=== PATIENT | female | born 1955 | race Caucasian/White ===

== ENCOUNTER → 2016-08-04 | Outpatient (CLI) | payer BC ==
[~2016-08-04] MED LIST: ASCO1CHW17 PO; CALC1TAB9 PO; IBUP-1050 PO; MULT-506 PO; NAPR1TAB9 PO
== END | disposition home or self-care (01) ==
LOC: C.LABSPEC 17:38
PROVIDERS: ATTEND Physician Assistant
DX: L29.8 Other pruritus (principal)

== ENCOUNTER → 2016-09-29 | Day surgery (SDC) | payer BC ==
[2016-09-22 11:39] VITALS: Ht 157.5 cm; Wt 105.0 kg
[~2016-09-29] VITALS: Ht 157.5 cm; Wt 105.0 kg
[~2016-09-29] MED LIST changes: -IBUP-1050 PO; +LIDOCAINE HCL 2% 2 ML VIAL (20MG/ML) ONE; +PROPOFOL IV EMULSION 10 MG/ML 20 ML VIAL IV ONE; +SODIUM CHLORIDE 0.9% 500ML 500 ML IV ONE
[2016-09-29 13:45] VITALS: TEMP 37.1
--- NOTE | 2016-09-29 14:31 | Endo History and Physical ---
History & Physical Date of Service: September 29, 2016. Chief Complaint: screening Referring Physician: Dr. Rishi Gonsalves History of Present Illness 61 yo CF who presents for screening colonoscopy. Past Medical History Arthritis Past Surgical History Hx Cardiac Surgery: No Hx Internal Defibrillator: No Hx Pacemaker: No Hx Abdominal Surgery: Yes (HERNIA REPAIR, JUANCHO, GASTRIC BYPASS, SANDRO BSO) Hx of Implantable Prosthesis: No Hx Post-Op Nausea and Vomiting: No Hx Cancer Surgery: No Hx Thoracic Surgery: No Hx Orthopedic: Yes (LT/RT KNEE SURGERY) Hx Urinary Tract Surgery: No Family History None Social History Smoking Status: Never Smoker Hx Substance Use: No Hx Alcohol Use: No Allergies Coded Allergies: No Known Allergies (Verified , 09/22/16) Current Medications Reported Home Medications Medications Dose Route/Sig Max Daily Dose Days Date Category Dose Instructions Vitamin C Adult Gummies 125 mg (Ascorbic Acid) 1 Chw Chw 1 Tab PO QAM 09/22/16 Reported Citracal + D3 Maximum (Calcium Citrate-Vitamin D) 1 Tab Tab 2 Tab PO QAM 07/25/15 Reported Aleve (Naproxen) 220 Mg Tab 440 Mg PO BID 07/06/11 Reported ALWAYS TAKES AM DOSE Multivitamin (Multivitamins) Tab 1 Tab PO QAM 12/28/10 Reported Vital Signs Weight (Kilograms): 105 Height (Feet): 5 Height (Inches): 2 Date Time Temp Pulse Resp B/P Pulse Ox O2 Delivery O2 Flow Rate FiO2 09/29/16 13:45 37.1 105 20 134/70 93 Room Air Physical Exam General Appearance: WD/WN, no apparent distress Respiratory/Chest: Auscultation: breath sounds normal Cardiovascular: Heart Auscultation: RRR Abdomen: Bowel Sounds: normal Inspection & Palpation: soft, non-distended, no tenderness, guarding & rebound Assessment and Plan Assessment: 61 yo CF who presents for screening colonoscopy. Plan: Proceed with colonoscopy.
--- NOTE | 2016-09-29 15:11 | Anesthesiology Progress Note ---
Anesthesia Post Op Note Date & Time September 29, 2016 at 15:10 Vital Signs Pain Intensity: 0 Vital Signs Past 12 Hours Date Time Temp Pulse Resp B/P Pulse Ox O2 Delivery O2 Flow Rate FiO2 09/29/16 14:55 78 16 95/75 94 Room Air 09/29/16 13:45 37.1 105 20 134/70 93 Room Air Notes Mental Status: alert / awake / arousable, participated in evaluation Pt Amnestic to Procedure: Yes Nausea / Vomiting: adequately controlled Pain: adequately controlled Airway Patency, RR, SpO2: stable & adequate BP & HR: stable & adequate Hydration State: stable & adequate Anesthetic Complications: no major complications apparent
--- NOTE | 2016-09-29 15:18 | GI REPORT ---
Procedure Date: 09/29/2016 2:20 PM Procedure: Colonoscopy Indications: Screening for colorectal malignant neoplasm Medicines: Monitored Anesthesia Care Complications: No immediate complications. Estimated Blood Loss: Estimated blood loss: none. Procedure: Pre-Anesthesia Assessment: - Prior to the procedure, a History and Physical was performed, and patient medications and allergies were reviewed. The patient's tolerance of previous anesthesia was also reviewed. The risks and benefits of the procedure and the sedation options and risks were discussed with the patient. All questions were answered, and informed consent was obtained. Prior Anticoagulants: The patient has taken no previous anticoagulant or antiplatelet agents. ASA Grade Assessment: III - A patient with severe systemic disease. After reviewing the risks and benefits, the patient was deemed in satisfactory condition to undergo the procedure. After I obtained informed consent, the scope was passed under direct vision. Throughout the procedure, the patient's blood pressure, pulse, and oxygen saturations were monitored continuously. The Scope was introduced through the anus and advanced to the terminal ileum. The colonoscopy was performed without difficulty. The patient tolerated the procedure well. The quality of the bowel preparation was good. The terminal ileum, ileocecal valve, appendiceal orifice, and rectum were photographed. Findings: Non-bleeding internal hemorrhoids were found during retroflexion. The hemorrhoids were small. The exam was otherwise without abnormality. Impression: - Non-bleeding internal hemorrhoids. - The examination was otherwise normal. - No specimens collected. Recommendation: - Resume previous diet. - Continue present medications. - Repeat colonoscopy in 10 years for surveillance. - Return to primary care physician as previously scheduled. Aj Sparks DO 09/29/2016 3:18:12 PM This report has been signed electronically. Note Initiated On: 09/29/2016 2:20 PM I attest to the content of the Intraoperative Record and orders documented therein, exceptions below
--- NOTE | 2016-09-29 15:22 | Discharge Instructions ---
Endoscopy Patient Instructions Date / Procedure(s) Performed September 29, 2016. Colonoscopy Allergy Information Coded Allergies: No Known Allergies (Verified , 09/22/16) Discharge Date / Findings September 29, 2016. Internal hemorrhoids Medication Instructions OK to resume all medications today as prescribed Reported Home Medications Medications Dose Route/Sig Max Daily Dose Days Date Category Dose Instructions Vitamin C Adult Gummies 125 mg (Ascorbic Acid) 1 Chw Chw 1 Tab PO QAM 09/22/16 Reported Citracal + D3 Maximum (Calcium Citrate-Vitamin D) 1 Tab Tab 2 Tab PO QAM 07/25/15 Reported Aleve (Naproxen) 220 Mg Tab 440 Mg PO BID 07/06/11 Reported ALWAYS TAKES AM DOSE Multivitamin (Multivitamins) Tab 1 Tab PO QAM 12/28/10 Reported Provider Instructions Activity Restrictions - No exercising or heavy lifting for 24 hours. - Do not drink alcohol the day of the procedure. - Do not drive a car or operate machinery until the day after the procedure. - Do not make any important decisions or sign important papers in 24 hours after the procedure. Following Day: - Return to full activity which may include returning to work/school. Diet Start your diet with liquids and light foods (jello, soup, juice, toast). Then eat your usual diet if not nauseated. Treatment For Common After Affects For mild abdominal pain, bloating, or excessive gas: - Rest - Eat lightly - Lie on right side Follow-Up Information Follow-up with Dr. Rishi Gonsalves as scheduled Anesthesia Information What You Should Know You have had a procedure that required some medicine to reduce anxiety and discomfort. This treatment is called moderate sedation. After receiving the treatment, you may be sleepy, but you will be able to breathe on your own. The effects of the treatment may last for several hours. Follow these instructions along with Activity/Diet recommendations noted above: * Do NOT do anything where dizziness or clumsiness would be dangerous. * Rest quietly at home today, then you can be up and about tomorrow. * Have a responsible person stay with you the rest of today. * You may have had an I.V. today. If so, you may take the dressing off later today. Recommendations Call your doctor if: * Trouble breathing * Continuous vomiting for more than 24 hours * Temperature above 101 degrees * Severe abdominal pain or bloating * Pain not relieved by pain medicine ordered * There is increased drainage or redness from any incision * A large amount of rectal bleeding greater than 2-3 tablespoons. (If you had a polyp/s removed or have hemorrhoids, a small amount of blood - from the rectum is to be expected.) * You have any unanswered questions or concerns. IN THE EVENT OF A SERIOUS EMERGENCY, GO TO THE NEAREST EMERGENCY ROOM Your discharge instructions were prepared by provider Aj Sparks. Patient Instructions Signature Page Marilee Mckeon Patient (or Guardian) Signature/Date: I have read and understand the instructions given to me by my caregivers. Caregiver/RN/Doctor Signature/Date: The above-named patient and/or guardian has received patient instructions on this date. + Original Patient Signature Page (only) stays with chart. Please make copy for patient.
[2016-09-29 15:25] VITALS: BP 116/81; PULSE 75; O2SAT 97
== END | disposition home or self-care (01) ==
LOC: C.GI 13:03
PROVIDERS: ATTEND Internal Medicine
DX: Z12.11 Encounter for screening for malignant neoplasm of colon (principal); K64.8 Other hemorrhoids; M19.90 Unspecified osteoarthritis, unspecified site; Z98.890 Other specified postprocedural states; Z98.84 Bariatric surgery status; E66.01 Morbid (severe) obesity due to excess calories; Z68.41 Body mass index [BMI] 40.0-44.9, adult

== ENCOUNTER → 2017-04-11 | Outpatient (CLI) | payer BC ==
[~2017-04-11] MED LIST changes: -LIDOCAINE HCL 2% 2 ML VIAL (20MG/ML) ONE; -PROPOFOL IV EMULSION 10 MG/ML 20 ML VIAL IV ONE; -SODIUM CHLORIDE 0.9% 500ML 500 ML IV ONE
== END | disposition home or self-care (01) ==
LOC: C.LABBFT 13:56
PROVIDERS: ATTEND Internal Medicine
DX: Z00.00 Encounter for general adult medical examination without abnormal findings (principal); Z11.59 Encounter for screening for other viral diseases

== ENCOUNTER → 2017-06-29 | Outpatient (CLI) | payer OTHER ==
--- NOTE | 2017-06-29 15:23 | MAMMOGRAPHY REPORT ---
BILATERAL DIGITAL SCREENING MAMMOGRAM TOMOSYNTHESIS WITH CAD: 06/29/2017 CLINICAL HISTORY: Routine screening. Patient has no complaints. TECHNIQUE: Breast tomosynthesis in addition to standard 2D mammography was performed. Current study was also evaluated with a Computer Aided Detection (CAD) system. COMPARISON: Comparison is made to exams dated: 04/20/2016 mammogram, 04/15/2015 mammogram, 04/03/2014 mammogram, 09/28/2012 mammogram, 09/08/2011 mammogram, and 08/07/2010 mammogram - [facility]. BREAST COMPOSITION: The tissue of both breasts is almost entirely fatty. FINDINGS: No suspicious masses, calcifications, or areas of architectural distortion are noted in ei ther breast. There has been no significant interval change compared to prior exams. IMPRESSION: ACR BI-RADS CATEGORY 1: NEGATIVE There is no mammographic evidence of malignancy. A 1 year screening mammogram is recommended. The pa tient will receive written notification of the results. Approximately 10% of breast cancers are not detected with mammography. A negative mammographic report should not delay biopsy if a clinically suggestive mass is present. Dariana Ansari M.D. /:06/29/2017 11:35:01 Block Hand: Ariana MEADE)([place]), [facility] letter sent: Normal 1/2 BI-RADS Code: ACR BI-RADS Category 1: Negative
== END | disposition home or self-care (01) ==
LOC: C.MAMM 11:07
PROVIDERS: ATTEND Internal Medicine
DX: Z12.31 Encounter for screening mammogram for malignant neoplasm of breast (principal)

== ENCOUNTER 2019-05-10 06:13 | Inpatient (IN) ==
--- NOTE | 2019-04-06 14:43 | PAT Medication Instructions ---
Medication Instructions Date of Service April 06, 2019 Home Medications multivitamin 1 cap PO QAM ascorbic acid (vitamin C) 125 mg PO DAILY [Citracal + D Maximum] 2 tab PO QAM acetaminophen [Tylenol Extra Strength] 1,000 mg PO UD PRN celecoxib [Celebrex] 200 mg PO DAILY ASK your surgeon for instructions celecoxib [Celebrex] 200 mg PO DAILY DO NOT take the morning of surgery multivitamin 1 cap PO QAM ascorbic acid (vitamin C) 125 mg PO DAILY [Citracal + D Maximum] 2 tab PO QAM acetaminophen [Tylenol Extra Strength] 1,000 mg PO UD PRN Other Notes If you have any questions please call us at [phone] or [phone] or [phone] or [phone]
--- NOTE | 2019-04-09 11:19 | Anesthesiology Consultation ---
Date of Service April 09, 2019 Assessment & Plan (1) Encounter for pre-operative examination: POSSIBLE DIFFICULT AIRWAY, H/O GLIDESCOPE #3 ON 2015 HERNIA REPAIR. S/P 01/2018 TKA, SAB X 1 ATTEMPT, NO ISSUES NOTED. Chart Review Chart Review: Acceptable Risk for Surgery and Patient seen in Pre Admission Testing Teaching & Discussion Instructed NPO after midnight before surgery, except medications with 15 cc of water. Medication instructions provided according to the PAT guidelines. History Surgery Operation Date: 05/10/19 13:00 Proposed Procedures p Right Total Knee Arthroplasty - Jam Garcia MD Height/Weight Height: 5 ft 1 in Weight: 114.7 kg Allergies Allergy/AdvReac Type Severity Reaction Status Date / Time No Known Drug Allergies Allergy Verified 04/02/19 11:56 Medications Home Medications Medication Instructions Recorded Confirmed Last Taken multivitamin 1 cap PO QAM #0 12/28/10 04/09/19 01/13/18 10:00 ascorbic acid (vitamin C) 125 mg PO DAILY #0 09/22/16 04/09/19 01/13/18 10:00 calcium citrate-vitamin D3 2 tab PO QAM 01/02/18 04/09/19 01/13/18 10:00 [Citracal + D Maximum] acetaminophen [Tylenol Extra 1,000 mg PO UD PRN 04/02/19 04/09/19 Unknown Strength] celecoxib [Celebrex] 200 mg PO DAILY 04/02/19 04/09/19 Unknown Past Medical History Medical History History of hypothyroidism History of positive PPD 2002. Was treated with meds x 9 months Morbid obesity Osteoarthritis Pulmonary nodules Per chest CT 04/19 Exercise / Class Metabolic Activity II 4-5 Yardwork/Stairs/Walk up hill (Denies CP or SOB with 1 FOS, moves slowly 2/2 knee pain) Past Family History Family History Mother Family history of cancer Other Patient's mother is Past Surgical History Surgical History Family history of reaction to anesthesia Mother- "slow to wake", PONV History of arthroscopy Bilateral knee History of bilateral tubal ligation History of cholecystectomy History of colonoscopy History of gastric bypass History of herniorrhaphy umbilical History of hysterectomy BSO History of tooth extraction History of total left knee replacement Past Anesthesia History No Hx of Anesthesia Complications, Difficult Airway (Glidescope #3 on 2016 hernia repair) and No Family Hx of Anesthesia Complications (other than mother "slow to wake") History of PONV No Hx of PONV and No Hx of Motion Sickness Social History Smoking Status: Never smoker Do You Dip or Chew Tobacco: No Hx Alcohol Use: No Hx Substance Use: No substance use type: does not use Review of Systems Pt denies any recent chest pain, shortness of breath, palpitations, cough, fever or URI. Physical Exam Vital Signs BP: 120/86 P: 95bpm SPO2: 93% RA T: 97.9 F R: 18 Constitutional + morbidly obese ENMT Mouth: + dental restorations (crown upper L molar); no chipped teeth and no loose teeth Thyromental Distance: > or= 3.5 Finger Breadths (3.5) Mallampati Class: I Neck + short neck; neck extension not limited Respiratory normal respiratory effort Auscultation: lungs clear to auscultation bilaterally Cardiovascular Rate/Rhythm: regular rate and regular rhythm Heart Sounds: no murmur Vessels: no carotid bruit Testing Laboratory Results Blood Type O Positive 04/09/19 10:59 Antibody Screen NEGATIVE 04/09/19 10:59 04/09/19 WBC: 10.3 H/H: 13.8/41.9 PLATELETS: 265 SODIUM: 139 POTASSIUM: 4.3 CHLORIDE: 101 CO2: 25 BUN: 20 CREATININE: 0.75 GLUCOSE: 104 PT: 9.9 PTT: 27.3 INR: 0.9 Electrocardiogram Date: 04/09/19 Findings: + NSR @ (87bpm) LAFB. No significant change from EKG 12/15/17 Chest X-Ray Date: 04/09/19 COMPARISON STUDY: Chest radiograph December 15, 2017. FINDINGS: Lung volumes are normal. There is no pneumothorax or pleural effusion. There is no consolidation to suggest pneumonia. A 2.1 cm round density projects over the right hilum. There is no evidence for pulmonary edema. A moderate sized hiatal hernia is present. IMPRESSION: 1. 2.1 cm round density which projects over the right hilum. This is probably artifactual however a pulmonary nodule or enlarged right hilar lymph node cannot be excluded. A follow-up CT of the chest with contrast is recommended. 2. No acute cardiopulmonary findings. 3. Hiatal hernia. Other Testing Chest CT with Contrast 04/19/19 IMPRESSION: 1. No acute intrathoracic abnormality. 2. No mass, adenopathy or suspicious nodule of the right hilum to correlate with findings on recent chest radiographs. The reported opacity was likely secondary to normal pulmonary vasculature. 3. There are however a few likely benign solid pulmonary nodules noted throughout the right lung measuring up to 5 mm. Follow-up guidelines provided below. 4. Additional findings as above.
--- NOTE | 2019-04-09 12:09 | XRay Report ---
XR chest Pre-admission PA/Lat CLINICAL HISTORY: Preoperative evaluation. COMPARISON STUDY: Chest radiograph December 15, 2017. FINDINGS: Lung volumes are normal. There is no pneumothorax or pleural effusion. There is no consolid ation to suggest pneumonia. A 2.1 cm round density projects over the right hilum. There is no evidenc e for pulmonary edema. A moderate sized hiatal hernia is present. IMPRESSION: 1. 2.1 cm round density which projects over the right hilum. This is probably artifactual however a p ulmonary nodule or enlarged right hilar lymph node cannot be excluded. A follow-up CT of the chest wi th contrast is recommended. 2. No acute cardiopulmonary findings. 3. Hiatal hernia. Electronically signed by: Peewee Mukherjee M.D. 04/09/2019 12:08 PM
--- NOTE | 2019-05-05 14:57 | History and Physical Report ---
DATE OF ADMISSION: 05/10/2019 CHIEF COMPLAINT: Right knee pain. HISTORY OF PRESENT ILLNESS: A 63-year-old female who now presents for surgical treatment of her right knee. It is a little bit over a year out from a left knee replacement and doing quite well from this. She continues to be limited by her right knee pain and discomfort. This has been a longstanding problem and gradually getting worse over the past 5 years. She has been through extensive conservative treatment, which really has not helped. She is very limited in her walking tolerance is about a block. The more she walks, the more it hurts. She is very happy with the left side and would like to proceed with right knee replacement. PAST MEDICAL HISTORY: 1. Obesity with a BMI of 48. 2. Asthma. PAST SURGICAL HISTORY: Include: 1. Left total knee replacement on 01/17/2018. 2. Umbilical hernia repair. 3. Gastric bypass surgery in 2005. 4. Hysterectomy. 5. Cholecystectomy. 6. Knee arthroscopy, left one done in 2003, [place] [address] Olvera. ALLERGIES: None. CURRENT MEDICATIONS: Include 1. Citrucel. 2. Multivitamin. 3. Aleve. 4. Vitamin C. 5. Tylenol. 6. Calcium supplement. SOCIAL HISTORY: A 63-year-old female. She is recently retired from [employer]. She does not smoke. FAMILY HISTORY: Noncontributory. REVIEW OF HISTORY: Negative for diabetes, neurologic problem, vascular problem, bleeding disorders. No history of DVT or PE. She is morbidly obese. PHYSICAL EXAMINATION GENERAL: Large pleasant, healthy appearing, middle-aged female. HEENT: Benign. NECK: Supple, no lymphadenopathy. LUNGS: Clear to auscultation. HEART: Regular rate and rhythm. ABDOMEN: Soft, nontender, nondistended. EXTREMITIES: Grossly neurovascularly intact except as follows: Examination of both knees reveal patient walks with a waddling type gait. Examination of the right knee reveals marked varus deformity. She has a very stiff knee with a 10-degree flexion contracture and can only flex to about 95 degrees. Some limited by soft tissues. No gross instability. No pain with hip motion. Examination of the left knee reveals well-healed incision. She has anatomic alignment. Range of motion 0-110. Good straight leg raise. X-RAYS: X-rays of the right knee reviewed. Shows advanced right knee DJD. She has got complete loss of medial joint space with severe tibial femoral subluxation and destruction of the medial tibial plateau. She has got large osteophytes in all 3 compartments. The left knee looks to be in good position and well aligned. ASSESSMENT: A 63-year-old female, a little over a year out from left knee replacement with advanced right knee degenerative joint disease. She is also morbidly obese and status post gastric bypass surgery. She has failed all conservative care and would like to have her right knee replaced. PLAN: We will take her to the operating room and do right total knee replacement. The risks and benefits of this procedure were explained to the patient including but not limited to DVT, PE, , infection, neurological injury, vascular injury, bleeding problem, pain, limited range of motion, stiffness, failure to relieve symptoms, incomplete relief of symptoms, need for further surgery in future, fracture, leg length inequality, nerve palsy, etc. I did explain to her with her large size and weight, she is at increased risk of infection. She is aware of that. As far as discharge plans, she is planning to be discharged to home using [facility] home health program.
[~2019-05-10 06:13] MED LIST changes: +ACETAMINOPHEN 500 MG TAB PO SCH; -ASCO1CHW17 PO; +BUPIVACAINE LIPOSOME/PF 266 MG, BUPIVACAINE/EPINEPHRINE 50 ML, SODIUM CHLORIDE 0.9% 30 ... INFIL SCH; -CALC1TAB9 PO; +CEFAZOLIN 3000MG 72.5 ML IV SCH; +FAMOTIDINE 20 MG TAB PO SCH; +GABAPENTIN 600 MG DOSE PO SCH; +LR 500ML BOLUS, THEN 15ML/HR IV SCH; +LR 60ML/HR IV SCH; +METOCLOPRAMIDE HCL 10 MG TABLET PO SCH; -MULT-506 PO; -NAPR1TAB9 PO; +SCOPOLAMINE 1.5 MG TDSY TD SCH; +TRANEXAMIC ACID 1,000 MG **IV Intra-op IV SCH
[2019-05-10] MEDS ORDERED: BUPIVACAINE 0.5 % 5 MG/1 ML PF 10ML VIAL ONE (06:19)
[2019-05-10] MEDS ORDERED: BUPIVACAINE 0.25% 30 ML VIAL ONE (06:19)
--- NOTE | 2019-05-10 06:53 | History & Physical Bridge Note ---
Date of Service May 10, 2019 History & Physical Bridge Note I have examined the patient, reviewed the History & Physical and in the interval since the performance of the History & Physical I have noted the following changes of clinical significance: no changes noted
[2019-05-10] MEDS ORDERED: BUPIVACAINE/EPINEPHRINE 0.25% 1:200,000 30 ML VIAL ONE (07:01)
[2019-05-10] MEDS ORDERED: SODIUM CHLORIDE 0.9% PF 50 ML VIAL ONE (07:02)
[2019-05-10] MEDS ORDERED: BACITRACIN INJ 50,000 UNIT VIAL ONE (07:02)
[2019-05-10] MEDS ORDERED: BUPIVACAINE LIPOSOME 1.3% 266 MG/20 ML VIAL ONE (07:02)
[2019-05-10] MEDS ORDERED: fentaNYL citrate 100 MCG/2 ML VIAL ONE (07:04)
[2019-05-10] MEDS ORDERED: MIDAZOLAM HCL 1 MG/ML 2ML VIAL ONE ×3 (07:04→10:29)
[2019-05-10] MEDS ORDERED: PROPOFOL IV EMULSION 10 MG/ML 20 ML VIAL IV ONE ×3 (07:15→10:48)
[2019-05-10] MEDS ORDERED: LIDOCAINE HCL 2% 2 ML VIAL/AMP(20MG/ML) INFIL ONE (07:15)
[2019-05-10] MEDS ORDERED: ONDANSETRON INJ 2 MG/ML 2 ML VIAL IV PRN ×2 (08:11→12:40)
[2019-05-10] MEDS ORDERED: ATROPINE SULFATE 0.1 MG/ML 10ML SYR IV PRN (08:11)
[2019-05-10] MEDS ORDERED: ePHEDrine sulfate 50 MG/ML AMP IV PRN (08:11)
[2019-05-10] MEDS ORDERED: ONDANSETRON INJ 2 MG/ML 2 ML VIAL ONE (09:02)
[2019-05-10] MEDS ORDERED: METOCLOPRAMIDE HCL INJ 5 MG/ML 2 ML VIAL ONE (09:02)
[2019-05-10] MEDS ORDERED: DiphenhydrAMINE HCL 50 MG/ML VIAL ONE (09:02)
[2019-05-10] MEDS ORDERED: VANCOMYCIN HCL 1000MG/20ML VIAL ONE (09:08)
[2019-05-10] MEDS ORDERED: PHENYLEPHRINE 100MCG/ML 5ML SYR ONE (09:38)
[2019-05-10] MEDS ORDERED: ePHEDrine sulfate 50 MG/ML SYR ONE (09:38)
--- NOTE | 2019-05-10 11:06 | Post Operative Brief Note ---
PG Immediate Post Op with CF Date of Surgery May 10, 2019 Pre & Post Diagnosis Operation Date: 05/10/19 08:50 Pre-Op Diagnosis: Right Knee Degenerative Joint Disease with pain Post-Op Diagnosis: Right Knee Degenerative Joint Disease with pain I identified the patient and participated in the time-out.: Yes Procedure Operation Date: 05/10/19 08:50 Actual Procedures p Right Total Knee Arthroplasty(Right) - Jam Garcia MD Surgeon Jam Garcia MD [employer] Helper Mojgan, PAC Estimated Blood Loss 50 Findings Consistent with Post-Op Diagnosis Fluids 1400 cc Specimens Specimen Description: A. Right knee bone and tissue Drains Lam Catheter Anesthesia Type Spinal MAC Complications none Disposition Accompanied Patient To Recovery: Yes Disposition: Recovery Room
[2019-05-10] MEDS: fentaNYL citrate 100 MCG/2 ML VIAL IV PRN ×4 (11:16→12:00)
--- NOTE | 2019-05-10 11:37 | XRay Report ---
XR knee RT 1 or 2V routine HISTORY: 63 years-old Female Surgical Post Op right knee total joint arthroplasty. History of degene rative joint disease COMPARISON: Radiographs 04/09/2019 TECHNIQUE: 2 views of the right knee FINDINGS: Right knee total joint arthroplasty and patella resurfacing. Anterior midline skin dorina are noted along with expected postsurgical soft tissue swelling and deep tissue air with surgical drainage cath eter. Satisfactory alignment without acute fracture or retained foreign body. IMPRESSION: Satisfactory alignment of the right knee total joint arthroplasty. ACT 112: Negative or not required by law. The above report was generated using voice recognition software. It may contain grammatical, syntax o r spelling errors. Electronically signed by: Adalid Gaona M.D. 05/10/2019 11:35 AM
--- NOTE | 2019-05-10 11:59 | Anesthesiology Progress Note ---
Date of Service May 10, 2019 Anesthesia Post Procedure Vital Signs Vital Signs: Temp Pulse Pulse Resp BP BP Pulse Ox 05/10/19 11:45 78 16 129/79 92 05/10/19 11:35 84 14 129/72 92 05/10/19 11:25 79 13 112/73 94 05/10/19 11:15 89 17 102/56 L 100 05/10/19 11:07 37.1 C 88 18 123/67 96 05/10/19 07:17 37.0 C 89 89 H 127/82 94 Pain Intensity Right Knee: Pain Intensity: 5 Right Thigh: Pain Intensity: 5 Transfer of Care Handoff Completed per policy Notes Mental Status: alert / awake / arousable and participated in evaluation Nausea / Vomiting: adequately controlled Pain: improving with treatment Airway Patency, RR, SpO2: stable & adequate BP & HR: stable & adequate Hydration State: stable & adequate Neuraxial Anesthesia: was administered and sensory block is resolving Anesthetic Complications: no major complications apparent and Pt Satisfied with anesthetic care
[2019-05-10] MEDS ORDERED: HYDROmorphone INJ 0.5 MG/0.5 ML SYR IV PRN (12:40)
[2019-05-10] MEDS ORDERED: ALUMINUM/MAGNESIUM SUSP 30 ML UDC PO PRN (12:40)
[2019-05-10] MEDS ORDERED: METOCLOPRAMIDE HCL INJ 5 MG/ML 2 ML VIAL IV PRN (12:40)
[2019-05-10] MEDS ORDERED: MAGNESIUM HYDROXIDE SUSP 30 ML UDC PO PRN (12:40)
[2019-05-10] MEDS ORDERED: NALOXONE HCL 0.4 MG/1 ML VIAL/CARP IV PRN (12:40)
[2019-05-10] MEDS ORDERED: bisacodyL 10 MG SUPP PR PRN (12:40)
[2019-05-10] MEDS: CHECK SCOPOLAMINE PATCH PLACEMENT SCH ×2 (12:44→15:06)
[2019-05-10] MEDS: SODIUM CHLORIDE 0.9% 1000ML 1,000 ML IV SCH ×2 (14:07→20:52)
[2019-05-10] MEDS: KETOROLAC 30 MG/ML VIAL IV SCH ×2 (14:07→20:53)
[2019-05-10] MEDS: ACETAMINOPHEN 500 MG TAB PO SCH (15:07)
[2019-05-10] MEDS: CEFAZOLIN 2000MG 2,000 MG/15 ML SYR IV SCH (16:09)
[2019-05-10] MEDS: FERROUS GLUCONATE 324 MG TAB PO SCH (16:14)
[2019-05-10] MEDS: ASCORBIC ACID 500 MG TAB PO SCH (16:14)
[2019-05-10] MEDS ORDERED: TRANEXAMIC ACID / 0.7% NACL 1,000 MG/100 ML BAG IV SCH (17:10)
--- NOTE | 2019-05-10 17:39 | Operative Report ---
Post Operative Report Pre & Post Diagnosis Operation Date: 05/10/19 08:50 Pre-Op Diagnosis: Right Knee Degenerative Joint Disease with pain Post-Op Diagnosis: Right Knee Degenerative Joint Disease with pain I identified the patient and participated in the time-out.: Yes Procedure Operation Date: 05/10/19 08:50 Actual Procedures p Right Total Knee Arthroplasty(Right) - Jam Garcia MD Surgeon Jam Garcia MD [employer]ist Mojgan, PAC Estimated Blood Loss 50 Findings Consistent with Post-Op Diagnosis Operative findings revealed advanced right knee tricompartment DJD with extensive grade 4 [id number] disease in all 3 compartments. She had extensive medial tibial wear with a tibiofemoral subluxation large osteophytes medially and posterior medially. She had a large joint effusion. She had a very stiff knee with about a 15 degree flexion contracture and only about 90 degrees of flexion preoperatively. Fluids 1400 cc Specimens Right knee sent for pathology. Drains None. Anesthesia Type Spinal MAC Complications none Disposition Accompanied Patient To Recovery: No Disposition: Recovery Room Indications Patient is a 63-year-old female is had a long history of bilateral knee pain discomfort. She been through extensive conservative treatment the past without much relief. She underwent a left knee replacement a little over a year ago is done remarkably well from that. She continued be limited by severe right knee pain and deformity and stiffness. She failed all conservative care. She elected to a total knee arthroplasty. Description of Procedure Operative implants consisted of: 1. No Biomet Vanguard size 60 right posterior by femoral component. 2. Biomet size 67 tibial tray with a 12 mm x 80 mm offset stem with a 2.5 mm offset and a small cruciate wing. 3. 14 mm posterior box polyethylene insert. 4. 28 x 8 all poly-patella. Patient was taken to the operating room identified and placed on the operating table supine position protectors were properly padded. IV antibiotics were by by anesthesia team. Spinal anesthetic and abductor canal block had provided holding area. Lam catheter was placed in sterile fashion. Right factor was then placed in the right lower extremities and prepped and draped in usual sterile fashion. The right leg was elevated exsanguinated with use of an Esmarch interspace at 300 mmHg. An anterior approach to the right knee was then performed to longitudinal incision centered over the patella. Sharp lysis got through subcutaneous tissue down to level the extensor mechanism. A medial parapatellar arthrotomy incision was made. Some subperiosteal dissection was carried out medially. I did an extensive posterior medial dissection due to flexion contracture and severe deformity. 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 The osteophytes taken off the distal femur. The lateral patellofemoral ligament was released. Patella fat pad was removed. The patella was subluxated laterally and the knee was flexed. The osteophytes taken off the distal femur. The r emnant of the PCL was excised and the tibia subluxated anteriorly. The tibial eminence was resected. Due to her very large size, severe deformity, and previous gastric bypass surgery elect to place a stem in the tibia. Tibia was entered with a canal finder. I then reamed up to a 12. The reamer was left in the canal and the tibial alignment jig was then placed on the IM reamer and the proximal tibial cut was made to remove about a millimeter of bone from the most efficient aspect the medial tibial plateau. This did take a fairly large piece off laterally. Some osteophytes were removed. I then prepared the tibia for a 2.5 mm offset stem. The small keel punch was used and the component was assembled and placed in the tibial canal. Attention drawn the femur. Distal femur then with a sharp drop with intramedullary canal was suction. A right 5 degree valgus cutting guide was placed. Distal femoral cutting block was pinned in place. Distal femoral cut was made to take an additional 3 mm of bone off distal femur. Femur was then sized to a size 60. We did downsize this slightly. The AP cutting block was pinned parallel to the epicondylar axis which was a 4 degrees of external rotation. The anterior cut, anterior chamfer, posterior cut, posterior chamfer cuts were made. Box cutting guide was placed in a just slight lateral box cut was made. Some large osteophytes were taken off the posterior aspect of the femur. The remnants of the medial lateral menisci were excised. The trial femoral component was placed. The tibial tray was already in place. Then trialed the knee the 14 mm insert fit most appropriately. Attention drawn the patella. Patella was cleaned of all soft tissues. Patella thickness measured 18 mm in thickness was cut down to 12. Sized to a size 28 patella. Locals were drilled for the 28 patella. Lateral osteophytes removed. Patella button was placed and the knee was taken through range of motion patella tracked nicely with no thumbs test. Attention turned to placing the permanent components. All trial components were removed. A bone plug was placed in the disc femur limit blood loss. The components were assembled. A double batch of Palacos G cement was mixed. I did add an additional gram of vancomycin due to her history of gastric bypass surgery and the extensive nature of her surgery. A Biomet Vanguard size 60 right posterior by femoral component, size 67 tray with a 12 x 80 mm offset stem and a small cruciate wing, a 14 mm posterior box polyethylene insert, 28 x 8 all poly-patella then cement in place. He was brought into full extension of cement hardened. Final cement check was then performed. The pericapsular tissues were injected with total of 100 cc of combination of 20 of Exparel, 30 cc normal saline, 50 cc of quarter percent Marcaine with epinephrine. Patient did receive 1 g of tranexamic acid. The tendon was then let down for tourniquet time 79 minutes. Hemostasis assured with electrocautery. The extensor mechanism then closed with combination 1 PDS suture #1 Vicryl suture in a [id number] fashion for extensor mechanism checked found to be intact the subcutaneous tissue then closed with 2 Dexon suture in buried knot fashion skin was closed skin dorina. Leg was then cleaned dried and sterile dressing applied Xeroform, 4 x 4's, sterile cast padding, Harley bandage were applied. Patient then transferred to the recovery room in stable condition. Patient tolerated procedure well and there were no complications. I attest to the content of the Intraoperative Record and any orders documented therein. Any exceptions are noted below.
--- NOTE | 2019-05-10 18:12 | Progress Note ---
DATE: 05/10/2019 SUBJECTIVE: A 63-year-old female postop from right knee replacement. She is doing well. Pain is controlled. No chest pain or shortness of breath. Not feeling dizzy or lightheaded. OBJECTIVE: VITAL SIGNS: Temperature 37.0. Vital signs stable. GENERAL: Shows a pleasant, middle-aged female. She is sitting up in bed, looks quite comfortable. LUNGS: Clear to auscultation. HEART: Regular rate and rhythm. ABDOMEN: Soft, nontender, nondistended. EXTREMITIES: Grossly neurovascularly intact except as follows: Examination of the right lower extremity reveals the leg to be well aligned. Dressing is clean, dry and intact. She can dorsiflex and plantarflex her foot appropriately. She is neurologically intact. X-RAYS: X-ray of the right knee from recovery room reviewed. It shows cemented posterior stabilized total knee arthroplasty with a tibial stem. Components look to be in good position. Alignment looks good. No signs of problems. ASSESSMENT: A 63-year-old white female postop from a right knee replacement, doing quite well. Pain is controlled. She is neurologically intact. PLAN: 1. DVT prophylaxis including thigh-high TEDs, SCDs, aspirin twice a day. 2. PT/OT. Weight bear as tolerated. Right total knee protocol. 3. Pain control, doing pretty well with current pain regimen. 4. IV antibiotics x24 hours. 5. Disposition: Plan to discharge to home with some home health once adequately recovered and medically stable.
[2019-05-10] MEDS: TRAMADOL HCL 50 MG TABLET PO PRN (19:10)
[2019-05-10] MEDS: ASPIRIN 81 MG ECTAB PO SCH (20:54)
[2019-05-10] MEDS: DOCUSATE SODIUM 100 MG CAP PO SCH (20:54)
[2019-05-10] MEDS: SENNA 8.6 MG TAB PO SCH (20:54)
[2019-05-11] MEDS: CEFAZOLIN 2000MG 2,000 MG/15 ML SYR IV SCH (01:01)
[2019-05-11] MEDS: CHECK SCOPOLAMINE PATCH PLACEMENT SCH (01:01)
[2019-05-11] MEDS: SODIUM CHLORIDE 0.9% 1000ML 1,000 ML IV SCH (02:43)
[2019-05-11] MEDS: KETOROLAC 30 MG/ML VIAL IV SCH ×6 (02:44→20:39)
[2019-05-11 05:16] LABS: Hematocrit (blood only) 34.7 % (37-47); Hemoglobin 10.9 g/dL (12.0-16.0); Mean Corpuscular Hemoglobin 29.9 pg (25-34); Mean Corpuscular Hgb Conc 31.4 g/dL (32-36); Mean Corpuscular Volume 95.1 fL (80-100); Mean Platelet Volume 9.9 fL (7.4-10.4); Platelet Count 195 K/uL (130-400); RDW Coefficient of Variation 13.6 % (11.5-14.5); RDW Standard Deviation 47.7 fL (36.4-46.3); Red Blood Count 3.65 M/uL (4.2-5.4); White Blood Count 7.83 K/uL (4.8-10.8)
[2019-05-11 05:41] LABS: BUN Creatinine Ratio 22.2 (10-20); Calcium 7.6 mg/dl (8.5-10.1); Creatinine Clr Calc Pharmacy 84.8 ml/min; Est GFR (African American) 91.7; Est GFR (Non-African American) 79.1; Potassium 3.9 mmol/L (3.5-5.1)
[2019-05-11] MEDS: ACETAMINOPHEN 500 MG TAB PO SCH ×3 (06:16→21:07)
--- NOTE | 2019-05-11 08:19 | Progress Note ---
DATE: 05/11/2019 SUBJECTIVE: A 63-year-old female postop day 1 from a right knee replacement. She is doing pretty well. Pain is controlled. No chest pain or shortness of breath. Not feeling dizzy or lightheaded. OBJECTIVE: VITAL SIGNS: Temperature 37.0. Vital signs stable. GENERAL: Shows a pleasant, middle-aged female. She is lying in bed, looks comfortable. EXTREMITIES: Examination of the right leg reveals the dressing to be clean, dry and intact. She can dorsiflex and plantarflex her foot appropriately. She is neurologically intact. LABORATORY DATA: Hemoglobin is 10.9. Hematocrit 34.7. Electrolytes are stable. ASSESSMENT: A 63-year-old female postop day 1 from right knee replacement, doing pretty well. Pain is controlled. She is neurologically intact. PLAN: 1. DVT prophylaxis including thigh-high TEDs, SCDs, and aspirin twice a day. 2. PT/OT. Weight bear as tolerated. Right total knee protocol. 3. Pain control, doing pretty well with current pain regimen. 4. Disposition: Plan to discharge to home with some home health once adequately recovered and medically stable.
[2019-05-11] MEDS: FERROUS GLUCONATE 324 MG TAB PO SCH ×2 (08:22→16:24)
[2019-05-11] MEDS: MULTIVITAMIN TAB PO SCH (08:22)
[2019-05-11] MEDS: DOCUSATE SODIUM 100 MG CAP PO SCH ×2 (08:22→20:37)
[2019-05-11] MEDS: ASCORBIC ACID 500 MG TAB PO SCH ×2 (08:23→16:23)
[2019-05-11] MEDS: ASPIRIN 81 MG ECTAB PO SCH ×2 (08:23→20:37)
[2019-05-11] MEDS: CALCIUM 600MG + VIT D 400 IU TAB PO SCH (08:23)
[2019-05-11] MEDS ORDERED: NON-FORMULARY MEDICATION (Multivitamin 1 CAP) PO SCH (09:00)
[2019-05-11] MEDS ORDERED: ASCORBIC ACID 125 MG PO SCH (09:00)
--- NOTE | 2019-05-11 09:41 | Anesthesiology Progress Note ---
Date of Service May 11, 2019 Anesthesia Post Procedure Vital Signs Vital Signs: Temp Pulse Pulse Resp BP BP Pulse Ox 05/11/19 07:05 37 C 88 16 120/72 92 05/11/19 02:35 37 C 87 18 131/79 91 05/10/19 22:55 36.8 C 88 18 101/65 92 05/10/19 19:50 36.9 C 82 16 113/73 92 05/10/19 15:36 37.0 C 77 18 112/75 98 05/10/19 14:24 36.6 C 74 16 132/79 99 05/10/19 13:34 36.7 C 82 16 139/83 99 05/10/19 13:02 36.3 C L 75 16 124/74 97 05/10/19 12:30 36.5 C 75 16 132/74 95 05/10/19 12:05 36.3 C L 79 17 111/75 92 05/10/19 11:55 74 15 117/73 93 05/10/19 11:45 78 16 129/79 92 05/10/19 11:35 84 14 129/72 92 05/10/19 11:25 79 13 112/73 94 05/10/19 11:15 89 17 102/56 L 100 05/10/19 11:07 37.1 C 88 18 123/67 96 Pain Intensity Right Knee: Pain Intensity: 0 Right Thigh: Pain Intensity: 0 Notes Mental Status: alert / awake / arousable and participated in evaluation Patient Amnestic to Procedure: Yes Nausea / Vomiting: adequately controlled Pain: adequately controlled Airway Patency, RR, SpO2: stable & adequate BP & HR: stable & adequate Hydration State: stable & adequate Neuraxial Anesthesia: was administered and sensory block resolved Anesthetic Complications: no major complications apparent and Pt Satisfied with anesthetic care
[2019-05-11] MEDS: TRAMADOL HCL 50 MG TABLET PO PRN (16:49)
[2019-05-11] MEDS: SENNA 8.6 MG TAB PO SCH (20:37)
[2019-05-12] MEDS: KETOROLAC 30 MG/ML VIAL IV SCH ×3 (01:45→08:43)
[2019-05-12] MEDS: ACETAMINOPHEN 500 MG TAB PO SCH (05:35)
[2019-05-12 07:28] VITALS: PULSE 105; TEMP 99.1; O2SAT 92
--- NOTE | 2019-05-12 08:07 | Progress Note ---
DATE: 05/12/2019 SUBJECTIVE: A 63-year-old female postop day 2 from a right knee replacement. She is doing pretty well. Pain is controlled. Therapy is going well. No chest pain or shortness of breath. Not feeling dizzy or lightheaded. OBJECTIVE: VITAL SIGNS: Temperature 37.3. Vital signs stable. GENERAL: Shows a pleasant, middle-aged female. She is sitting in her bedside chair and looks pretty comfortable. LUNGS: Clear to auscultation. HEART: Has regular rate and rhythm. ABDOMEN: Soft, nontender, nondistended. EXTREMITIES: Grossly neurovascularly intact except as follows: Examination of the right lower extremity reveals the leg to be well aligned. Dressing is clean, dry and intact. Minimal swelling. Calf is soft and supple. She is neurologically intact. ASSESSMENT: A 63-year-old female postop day 2 from right knee replacement, doing pretty well. Pain is controlled. She is neurologically intact. PLAN: 1. DVT prophylaxis including thigh-high TEDs, SCDs, and aspirin twice a day. 2. PT/OT. Weight bear as tolerated. Right total knee protocol. 3. Pain control, doing well with current pain regimen. 4. Disposition: Plan to discharge to home with some home health later today.
[2019-05-12] MEDS: FERROUS GLUCONATE 324 MG TAB PO SCH (10:14)
[2019-05-12] MEDS: ASCORBIC ACID 500 MG TAB PO SCH (10:14)
[2019-05-12] MEDS: ASPIRIN 81 MG ECTAB PO SCH (10:15)
[2019-05-12] MEDS: CALCIUM 600MG + VIT D 400 IU TAB PO SCH (10:15)
[2019-05-12] MEDS: MULTIVITAMIN TAB PO SCH (10:15)
[2019-05-12] MEDS: DOCUSATE SODIUM 100 MG CAP PO SCH (10:15)
[2019-05-12] MEDS: TRAMADOL HCL 50 MG TABLET PO PRN (10:18)
[2019-05-12 10:30] VITALS: BP 147/85
== END 2019-05-12 11:11 | disposition home health service (06) | DRG 470 ==
LOC: ASU 06:13 → 3E 11:07

== ENCOUNTER 2020-04-16 13:25 | Inpatient (IN) ==
--- NOTE | 2020-04-16 14:14 | Emergency Department Note ---
Impression & Plan Breast abscess ED Provider Note NAME: DK MENESES AGE: 64 SEX: F : 1955 ARRIVES VIA: Walk-In INFORMANT: Patient, ED PROVIDER(S): Barry Castro MD Chief Complaint: Breast pain, drainage HPI: Patient does present for worsening breast pain and drainage. Patient states that she has had some fevers and chills and has had some decreased taste and smell. The patient did have a recent Covid test which is pending. The patient states that she had noticed the worsening pain since last Tuesday. 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 Garcia. The patient states that she has tried taking dqgb-hrs-[id number] medications without much relief but noticed increasing swelling and drainage. The patient has stated that she did require drainage before where she thought she had approximate 1 L removed from the left breast. Patient denies any nausea or vomiting. The patient has had some decreased p.o. intake. ROS: See HPI for pertinent positives and negatives. A total of 10 systems were reviewed and otherwise negative. Past medical history: See below Surgical history: See below Social history: See below Physical Exam: GENERAL: Wearing a mask. NAD, non-toxic. EYE EXAM: Normal conjunctiva. PERRL, no anisocoria and EOM's grossly intact w/o pain. Chest: 8 x 16 cm area of erythema with central area of fluctuance, slight abrasion over the area of fluctuance exposing the dermal layer. NECK: Supple, no nuchal rigidity, no adenopathy, non-tender. No signs of meningismus. LUNGS: Clear to auscultation. Normal chest wall mechanics. HEART: Tachycardic and regular, no MRG. ABDOMEN: Abdomen soft, non-tender, normo-active bowel sounds, no masses, no rebound or guarding. BACK: No CVA TTP. SKIN: No rashes and no bruising. UPPER EXTREMITIES: Upper extremities are grossly normal. LOWER EXTREMITIES: Grossly normal, no edema. NEURO EXAM: A&O x3, cranial nerves II-XII grossly intact, normal speech, moves all 4 extremities on command w/o issue. Differential diagnoses: Cellulitis, abscess, MRSA infection, DVT, necrotizing fasciitis, dermatitis, drug eruption, allergic reaction, as well as other pathologies. Course: Patient was seen and evaluated the bedside. Full history physical exam was performed. EKG: Indication: Tachycardia Normal sinus rhythm, rate 87, normal intervals, left axis deviation, T wave inversion in lead III and anteriorly. No significant change from comparison EKG September 05, 2019. Imaging Studies: Radiology results as stated below per my review in the radiologist's interpretation: XR chest 1V portable HISTORY: SEPSIS COMPARISON: Chest 01/09/2020. FINDINGS: Old, healed left-sided rib fractures. Right lung is clear. The chronic silhouette is top normal in size. No pleural effusions. No pneumothorax. A few small left basilar linear densities. This favors atelectasis or scarring. IMPRESSION: Left basilar linear densities. These are nonspecific but favor scarring/atelectasis. A pneumonia could also have a similar appearance in the appropriate clinical setting. ACT 112: Negative or not required by law. Electronically signed by: Harpreet Kiran M.D. 04/16/2020 4:01 PM Dictated: 04/16/20 [id number]: 04/16/201558 Cardiac monitoring: An order was placed for continuous cardiac monitoring. The monitor shows a rate of 104 with sinus tachycardia rhythm. Procedures: [id number] ultrasound completed by Dr. Castro Indication: Abscess Patient does have likely a large fluid containing area with multiple septations potentially consistent with abscess. Impression: Large pocket of fluid with septations likely consistent with abscess MDM: Patient did present with worsening drainage and swelling to the left breast. Patient did have blood work completed and was started empirically on vancomycin. IV fluids were also ordered. The size and scope of the abscess I believe is concerning enough to warrant consultation and not bedside drainage. Patient has a normal white count and hemoglobin. Platelet count is unremarkable. Kidney function electrolytes within normal limits. Mild hypocalcemia. Patient's urinalysis does show the possibility of infection patient does not complain of any symptoms. The patient also does have many epithelial cells negative nitrites. Patient did receive vancomycin already. I did speak with the on-call hospitalist. Covid negative. I did speak with the on-call hospitalist Dr. Lyman. Patient was admitted to the medicine service. Past Med/Surg History Medical History Abdominal hernia History of hypothyroidism History of positive PPD 2002. Was treated with meds x 9 months Internal hemorrhoids Lichen sclerosus et atrophicus Menopause Morbid obesity Mucinous carcinoma of breast Osteoarthritis PAD (peripheral artery disease) Pulmonary nodules Per chest CT 04/19 Vaginal itching Vulvitis Surgical History Difficult airway for intubation noted from a prior surgery in medical record, patient was unaware. Family history of reaction to anesthesia Mother- "slow to wake", PONV H/O wrist surgery Broken left wrist 2007 History of arthroscopy Bilateral knee History of bilateral tubal ligation History of cholecystectomy History of colonoscopy 2015 [place] History of gastric bypass 2006 History of herniorrhaphy umbilical 2014 History of hysterectomy BSO 1989 History of surgery on arm Broken right upper arm 2011 History of tooth extraction History of total left knee replacement History of total right knee replacement (TKR) S/P lumpectomy, left breast (01/09/20) Left Breast Lumpectomy with Localization, Juanita Cableman( 01-03-20) vs. Wire, and Left Axillary [place] Lymph Node Biopsy(Left) - Luis Quintero DO, FACS 01/09/20 Family History Mother , 88yo Obstruction of bowel Cancer Stroke Father , 39yo Industrial accident Brother A-fib Son MVA (motor vehicle accident) Other No family history of adverse response to anesthesia Patient's mother is Social History Smoking Status: Never smoker Second Hand Exposure: Yes (hx -- family members); Hx Alcohol Use: No Hx Substance Use: No Preferred Language: Mozambican Communication Ability: Effective Visual Impairment: No Limitations Hearing Ability: Normal Garment Alteration Examiner Required: No Beliefs That Will Affect Care: None marital status: Current Living Situation: Alone Current Living Situation Comment: Has SO current occupational status: retired 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, 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 Feels Safe at Home: Yes caffeine: Yes (4-5 cups/day) during the past year weight has: remained stable Allergies Allergies Allergy/AdvReac Type Severity Reaction Status Date / Time No Known Allergies Allergy Verified 04/16/20 16:20 Home Meds Home Medications Medication Instructions Recorded Confirmed multivitamin 1 cap PO QAM #0 12/28/10 04/16/20 calcium citrate-vitamin D3 2 tab PO QAM 01/02/18 04/16/20 [Citracal + D Maximum] amoxicillin See Rx Instructions .ROUTE 04/16/20 04/16/20 .COMPLEX PRN multivitamin with minerals 1 tab PO DAILY 04/16/20 04/16/20 [Hair,Skin and Nails] Results & Data (ED) Vital Signs Vital Signs - 24 hr 04/16/20 13:37 04/16/20 14:00 04/16/20 14:25 Temperature 37.1 C Temperature Source Oral Pulse Rate 104 H 96 H Pulse Rate from SpO2 Sensor 96 H Respiratory Rate 18 20 Blood Pressure 119/80 123/86 Blood Pressure Mean 93 96 Pulse Oximetry 93 96 Oxygen Delivery Method Room Air Room Air Sepsis Recent Fever Within 48 Hours Yes Sepsis New/Unexplained Change in Mental Status No Sepsis Action Taken by Nursing No Action Required 04/16/20 14:30 04/16/20 16:00 04/16/20 16:30 Temperature Temperature Source Pulse Rate 90 85 85 Pulse Rate from SpO2 Sensor 90 85 85 Respiratory Rate 20 27 H 24 Blood Pressure 116/85 137/93 128/95 Blood Pressure Mean 99 105 112 Pulse Oximetry 96 98 98 Oxygen Delivery Method Sepsis Recent Fever Within 48 Hours Sepsis New/Unexplained Change in Mental Status Sepsis Action Taken by Nursing 04/16/20 17:00 04/16/20 17:30 04/16/20 18:00 Temperature Temperature Source Pulse Rate 83 84 85 Pulse Rate from SpO2 Sensor 83 84 85 Respiratory Rate 19 20 26 H Blood Pressure 162/83 H 139/73 133/86 Blood Pressure Mean 97 81 97 Pulse Oximetry 96 98 98 Oxygen Delivery Method Sepsis Recent Fever Within 48 Hours Sepsis New/Unexplained Change in Mental Status Sepsis Action Taken by Nursing 04/16/20 18:30 04/16/20 19:00 04/16/20 19:30 Temperature Temperature Source Pulse Rate 85 86 84 Pulse Rate from SpO2 Sensor 87 89 Respiratory Rate 24 25 H 23 Blood Pressure 136/110 H 148/94 H 131/85 Blood Pressure Mean 117 103 95 Pulse Oximetry 96 96 Oxygen Delivery Method Sepsis Recent Fever Within 48 Hours Sepsis New/Unexplained Change in Mental Status Sepsis Action Taken by Long-Term Medications Current Medication List: was personally reviewed by me Laboratory Data Attestation: I reviewed the patient's lab results. Result diagrams: 04/16/20 15:40 04/16/20 15:40 Lab Results 04/16/20 04/16/20 04/16/20 Range/Units 13:47 15:40 15:40 WBC 9.40 (4.8-10.8) K/uL RBC 3.97 L (4.2-5.4) M/uL Hgb 12.2 (12.0-16.0) g/dL Hct 36.9 L (37-47) % MCV 92.9 (80-100) fL MCH 30.7 (25-34) pg MCHC 33.1 (32-36) g/dL RDW Std Deviation 44.7 (36.4-46.3) fL RDW Coeff of Marya 13.0 (11.5-14.5) % Plt Count 311 (130-400) K/uL MPV 9.8 (7.4-10.4) fL Immature Gran % (Auto) 0.3 % Neut % (Auto) 79.4 % Lymph % (Auto) 11.1 % [place] % (Auto) 8.3 % Eos % (Auto) 0.7 % Baso % (Auto) 0.2 % Neut # (Auto) 7.46 H (1.4-6.5) K/uL Lymph # (Auto) 1.04 L (1.2-3.4) K/uL [place] # (Auto) 0.78 H (0.11-0.59) K/uL Eos # (Auto) 0.07 (0-0.5) K/uL Baso # (Auto) 0.02 (0-0.2) K/uL Immature Gran # (Auto) 0.03 H (0.00-0.02) K/uL PT 11.0 (9.0-12.0) Seconds INR 1.0 (0.9-1.1) APTT 24.9 (21.0-31.0) Seconds PTT Ratio 0.9 Sodium (136-145) mmol/L Potassium (3.5-5.1) mmol/L Chloride (98-107) mmol/L Carbon Dioxide (21-32) mmol/L Anion Gap (3-11) BUN (7-18) mg/dl Creatinine (0.6-1.2) mg/dl Est Cr Clr Drug Dosing ml/min Est GFR ( Amer) Est GFR (Non-Af Amer) BUN/Creatinine Ratio (10-20) Glucose (70-99) mg/dl Lactate (0.4-2.0) mmol/L Calcium (8.5-10.1) mg/dl Magnesium (1.8-2.4) mg/dl Total Bilirubin (0.2-1) mg/dl AST (15-37) U/L ALT (12-78) U/L Alkaline Phosphatase (45-117) U/L Total Protein (6.4-8.2) gm/dl Albumin (3.4-5.0) gm/dl Globulin (2.5-4.0) gm/dl Albumin/Globulin Ratio (0.9-2) Procalcitonin (0-0.5) ng/ml Urine Color Tana Urine Appearance Cloudy A (Clear) Urine pH 6.0 (4.5-7.5) Ur Specific [place] 1.025 (1.000-1.030) Urine Protein 2+ H (Negative) Urine Glucose (UA) Negative (Negative) Urine Ketones Trace H (Negative) Urine Blood 3+ H (Negative) Urine Nitrite Negative (Negative) Urine Bilirubin Negative (Negative) Urine Urobilinogen Positive H (Negative) Ur Leukocyte Esterase Negative (Negative) Urine RBC 10-30 H (0-4) /hpf Urine WBC 10-30 H (0-5) /hpf Ur Epithelial Cells >30 H (0-5) /lpf Amorphous Sediment Present A (None Prsent) Urine Bacteria 1+ H (Negative) COVID-19 Eval Order SARS-CoV-2, RNA, NAAT (NEGATIVE) 04/16/20 04/16/20 04/16/20 Range/Units 15:40 15:40 15:40 WBC (4.8-10.8) K/uL RBC (4.2-5.4) M/uL Hgb (12.0-16.0) g/dL Hct (37-47) % MCV (80-100) fL MCH (25-34) pg MCHC (32-36) g/dL RDW Std Deviation (36.4-46.3) fL RDW Coeff of Marya (11.5-14.5) % Plt Count (130-400) K/uL MPV (7.4-10.4) fL Immature Gran % (Auto) % Neut % (Auto) % Lymph % (Auto) % [place] % (Auto) % Eos % (Auto) % Baso % (Auto) % Neut # (Auto) (1.4-6.5) K/uL Lymph # (Auto) (1.2-3.4) K/uL [place] # (Auto) (0.11-0.59) K/uL Eos # (Auto) (0-0.5) K/uL Baso # (Auto) (0-0.2) K/uL Immature Gran # (Auto) (0.00-0.02) K/uL PT (9.0-12.0) Seconds INR (0.9-1.1) APTT (21.0-31.0) Seconds PTT Ratio Sodium 139 (136-145) mmol/L Potassium 3.7 (3.5-5.1) mmol/L Chloride 103 (98-107) mmol/L Carbon Dioxide 32 (21-32) mmol/L Anion Gap 4.0 (3-11) BUN 12 (7-18) mg/dl Creatinine 0.75 (0.6-1.2) mg/dl Est Cr Clr Drug Dosing 87.4 ml/min Est GFR ( Amer) 96.9 Est GFR (Non-Af Amer) 83.6 BUN/Creatinine Ratio 16.3 (10-20) Glucose 96 (70-99) mg/dl Lactate 1.5 (0.4-2.0) mmol/L Calcium 8.4 L (8.5-10.1) mg/dl Magnesium 2.6 H (1.8-2.4) mg/dl Total Bilirubin 0.8 (0.2-1) mg/dl AST 23 (15-37) U/L ALT 30 (12-78) U/L Alkaline Phosphatase 120 H (45-117) U/L Total Protein 7.6 (6.4-8.2) gm/dl Albumin 2.3 L (3.4-5.0) gm/dl Globulin 5.3 H (2.5-4.0) gm/dl Albumin/Globulin Ratio 0.4 L (0.9-2) Procalcitonin < 0.05 (0-0.5) ng/ml Urine Color Urine Appearance (Clear) Urine pH (4.5-7.5) Ur Specific [place] (1.000-1.030) Urine Protein (Negative) Urine Glucose (UA) (Negative) Urine Ketones (Negative) Urine Blood (Negative) Urine Nitrite (Negative) Urine Bilirubin (Negative) Urine Urobilinogen (Negative) Ur Leukocyte Esterase (Negative) Urine RBC (0-4) /hpf Urine WBC (0-5) /hpf Ur Epithelial Cells (0-5) /lpf Amorphous Sediment (None Prsent) Urine Bacteria (Negative) COVID-19 Eval Order SARS-CoV-2, RNA, NAAT (NEGATIVE) 04/16/20 04/16/20 Range/Units 17:15 17:15 WBC (4.8-10.8) K/uL RBC (4.2-5.4) M/uL Hgb (12.0-16.0) g/dL Hct (37-47) % MCV (80-100) fL MCH (25-34) pg MCHC (32-36) g/dL RDW Std Deviation (36.4-46.3) fL RDW Coeff of Maray (11.5-14.5) % Plt Count (130-400) K/uL MPV (7.4-10.4) fL Immature Gran % (Auto) % Neut % (Auto) % Lymph % (Auto) % [place] % (Auto) % Eos % (Auto) % Baso % (Auto) % Neut # (Auto) (1.4-6.5) K/uL Lymph # (Auto) (1.2-3.4) K/uL [place] # (Auto) (0.11-0.59) K/uL Eos # (Auto) (0-0.5) K/uL Baso # (Auto) (0-0.2) K/uL Immature Gran # (Auto) (0.00-0.02) K/uL PT (9.0-12.0) Seconds INR (0.9-1.1) APTT (21.0-31.0) Seconds PTT Ratio Sodium (136-145) mmol/L Potassium (3.5-5.1) mmol/L Chloride (98-107) mmol/L Carbon Dioxide (21-32) mmol/L Anion Gap (3-11) BUN (7-18) mg/dl Creatinine (0.6-1.2) mg/dl Est Cr Clr Drug Dosing ml/min Est GFR ( Amer) Est GFR (Non-Af Amer) BUN/Creatinine Ratio (10-20) Glucose (70-99) mg/dl Lactate (0.4-2.0) mmol/L Calcium (8.5-10.1) mg/dl Magnesium (1.8-2.4) mg/dl Total Bilirubin (0.2-1) mg/dl AST (15-37) U/L ALT (12-78) U/L Alkaline Phosphatase (45-117) U/L Total Protein (6.4-8.2) gm/dl Albumin (3.4-5.0) gm/dl Globulin (2.5-4.0) gm/dl Albumin/Globulin Ratio (0.9-2) Procalcitonin (0-0.5) ng/ml Urine Color Urine Appearance (Clear) Urine pH (4.5-7.5) Ur Specific [place] (1.000-1.030) Urine Protein (Negative) Urine Glucose (UA) (Negative) Urine Ketones (Negative) Urine Blood (Negative) Urine Nitrite (Negative) Urine Bilirubin (Negative) Urine Urobilinogen (Negative) Ur Leukocyte Esterase (Negative) Urine RBC (0-4) /hpf Urine WBC (0-5) /hpf Ur Epithelial Cells (0-5) /lpf Amorphous Sediment (None Prsent) Urine Bacteria (Negative) COVID-19 Eval Order Covid19 [facility] SARS-CoV-2, RNA, NAAT NEGATIVE (NEGATIVE) Administered Medications Discontinued Medications Sodium Chloride (Nss 1000ml) 1,000 mls @ 999 mls/hr IV .[id number] OLYA Stop: 04/16/20 15:30 Last Infusion: 04/16/20 18:52 Dose: 0 mls/hr Documented by: [id number] Admin: 04/16/20 16:12 Dose: 999 mls/hr Documented by: [id number] Vancomycin HCl 2,500 mg/ (Sodium Chloride) 550 mls @ 200 mls/hr IV NOW ONE Stop: 04/16/20 17:12 Last Infusion: 04/16/20 18:53 Dose: 0 mls/hr Documented by: [id number] Admin: 04/16/20 16:13 Dose: 200 mls/hr Documented by: [id number] Ioversol (Optiray 320 125ml) 118 ml IV ONCE ONE Stop: 04/16/20 19:31 Last Admin: 04/16/20 19:30 Dose: 1 ml Documented by: [id number] Discharge Plan Visit Data Chief Complaint: Infection, Wound Stated Complaint: LEFT BREAST WOUND OPEN AND DRAINING,FEVER ED Provider: Barry Castro Discharge Problem: Breast abscess Forms Stand Alone Forms: [facility] Prescriptions Prescriptions: No Action multivitamin Capsule 1 cap PO QAM Qty: 0 RF: 0 calcium citrate-vitamin D3 [Citracal + D Maximum] 315-250 mg-unit Tablet 2 tab PO QAM RF: 0 multivitamin with minerals [Hair,Skin and Nails] Tablet 1 tab PO DAILY RF: 0 amoxicillin 500 mg tablet See Rx Instructions .ROUTE .COMPLEX PRN (Reason: Prior to Dental Work) RF: 0
[2020-04-16] MEDS ORDERED: VANCOMYCIN CONSULT ACTIVE PRN ×2 (14:26→23:04)
[2020-04-16] MEDS ORDERED: VANCOMYCIN HCL 2,500 MG in SODIUM CHLORIDE 0.9% 500 ML IV ONE (14:26)
[2020-04-16] MEDS ORDERED: SODIUM CHLORIDE 0.9% 1000ML 1,000 ML IV SCH (14:30)
[2020-04-16 15:59] LABS: Basophils # (auto) 0.02 K/uL (0-0.2); Basophils % (auto) 0.2 %; Eosinophils # (auto) 0.07 K/uL (0-0.5); Eosinophils % (auto) 0.7 %; Hematocrit (blood only) 36.9 % (37-47); Hemoglobin 12.2 g/dL (12.0-16.0); Immature Granulocytes # (auto) 0.03 K/uL (0.00-0.02); Immature Granulocytes % (auto) 0.3 %; Lymphocytes # (auto) 1.04 K/uL (1.2-3.4); Lymphocytes % (auto) 11.1 %; Mean Corpuscular Hemoglobin 30.7 pg (25-34); Mean Corpuscular Hgb Conc 33.1 g/dL (32-36); Mean Corpuscular Volume 92.9 fL (80-100); Mean Platelet Volume 9.8 fL (7.4-10.4); Monocytes # (auto) 0.78 K/uL (0.11-0.59); Monocytes % (auto) 8.3 %; Neutrophils # (auto) 7.46 K/uL (1.4-6.5); Neutrophils % (auto) 79.4 %; Platelet Count 311 K/uL (130-400); RDW Standard Deviation 44.7 fL (36.4-46.3); Red Blood Count 3.97 M/uL (4.2-5.4)
--- NOTE | 2020-04-16 16:02 | XRay Report ---
XR chest 1V portable HISTORY: SEPSIS COMPARISON: Chest 01/09/2020. FINDINGS: Old, healed left-sided rib fractures. Right lung is clear. The chronic silhouette is top no rmal in size. No pleural effusions. No pneumothorax. A few small left basilar linear densities. This favors atelectasis or scarring. IMPRESSION: Left basilar linear densities. These are nonspecific but favor scarring/atelectasis. A pneumonia coul d also have a similar appearance in the appropriate clinical setting. ACT 112: Negative or not required by law. Electronically signed by: Harpreet Kiran M.D. 04/16/2020 4:01 PM
[2020-04-16 16:10] LABS: Partial Thromboplastin Ratio 0.9; Partial Thromboplastin Time 24.9 Seconds (21.0-31.0)
[2020-04-16 16:24] LABS: Est GFR (African American) 96.9; Potassium 3.7 mmol/L (3.5-5.1)
[2020-04-16 16:25] LABS: Albumin Level 2.3 gm/dl (3.4-5.0); BUN Creatinine Ratio 16.3 (10-20); Calcium 8.4 mg/dl (8.5-10.1); Creatinine Clr Calc Pharmacy 87.4 ml/min; Est GFR (Non-African American) 83.6; Magnesium 2.6 mg/dl (1.8-2.4)
[2020-04-16 16:27] LABS: Albumin Globulin Ratio 0.4 (0.9-2); Bilirubin,Total 0.8 mg/dl (0.2-1); Globulin 5.3 gm/dl (2.5-4.0); Total Protein 7.6 gm/dl (6.4-8.2)
[2020-04-16] MEDS ORDERED: MoRPHine SULFATE 4 MG/ML 1 ML CARP\\VIAL IV PRN (17:00)
[2020-04-16 17:01] LABS: Appearance Urine Cloudy (Clear); Blood Urine 3+ (Negative); Color Urine Amber; Glucose Urine UA Negative (Negative); Ketones Urine Trace (Negative); Leukocyte Esterase Urine Negative (Negative); Nitrite Urine Negative (Negative); Protein Urine 2+ (Negative); Specific Gravity Urine 1.025 (1.000-1.030); Urobilinogen Urine Positive (Negative)
[2020-04-16 17:03] LABS: Bilirubin Urine Negative (Negative); Ictotest Urine Negative (Negative)
--- NOTE | 2020-04-16 17:12 | Electrocardiogram Report ---
Test Reason : Blood Pressure : / mmHG Vent. Rate : 087 BPM Atrial Rate : 087 BPM P-R Int : 146 ms QRS Dur : 080 ms QT Int : 384 ms P-R-T Axes : 023 -33 008 degrees QTc Int : 462 ms Normal sinus rhythm Left axis deviation Nonspecific ST abnormality Abnormal ECG When compared with ECG of 05-SEP-2019 02:25, No significant change was found Confirmed by Rishi Wei ([id number]) on 04/16/2020 5:12:29 PM Referred By: REFERRED SELF Confirmed By:Amado Wei
[2020-04-16 17:27] LABS: Amorphous Sediment Urine Present (None Prsent); Bacteria Urine 1+ (Negative); Epithelial Cell Urine >30 /lpf (0-5)
--- NOTE | 2020-04-16 18:04 | History & Physical Report ---
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 Garcia) completed last month presents with concerns of left breast pain, fevers, chills found to have abscess on ultrasound. Left breast abscess POC ultrasound showing large pocket of fluid with septations likely consistent with abscess IV vancomycin and Zosyn Blood cultures pending -Pain management with IV Morphine for severe pain and IV Toradol for mild/moderate pain Tylenol as needed for any fevers Discussed case with Dr. Bennett who will proceed with I/D left breast abscess Pulmonary Nodules Chest CT from April 2019 showing a few likely benign solid pulmonary nodules noted throughout the right lung measuring up to 5 mm According to Fleischner criteria recommendations patient will be due for follow-up CT at 12 months which would be around this time. Given patient's somewhat shortness of breath moving around in the bed we will order CTA to additionally rule out PEs as well. Pending. 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 Garcia) completed 04/03/2020 presents with concerns of left breast pain for about the past week. Patient describes intermittent sharp pain from the bottom to the top of the breast. 6 out of 10 on severity scale, nonradiating. Alleviated some with ice. Exacerbated with touch. Associated decrease in sensitivity lower half of left breast. Patient actually notes that this morning woke up with a lot of yellowish colored drainage that had a very foul odor, which prompted ER visit. Patient notes sick symptoms of fevers, chills, decreased appetite, fatigue, and decreased sense of taste and smell since about last Tuesday as well. Patient otherwise denies any nausea, vomiting, diarrhea, chest pain, shortness of breath, other respiratory symptoms, abdominal pain, urinary symptoms, known sick contacts or recent travel anywhere. Patient with no other acute concerns or complaints. Pertinent labs: CBC CMP largely unremarkable. Alk phos 120, albumin 2.3. Covid negative POC ultrasound showing large pocket of fluid with septations likely consistent with abscess ER course: IV vancomycin, IV morphine 4 mg, NSS 1 L Allergies Allergy/AdvReac Type Severity Reaction Status Date / Time No Known Allergies Allergy Verified 04/16/20 16:20 Home Medications Medication Instructions Recorded Confirmed Type multivitamin 1 cap PO QAM #0 12/28/10 04/16/20 History calcium citrate-vitamin D3 2 tab PO QAM 01/02/18 04/16/20 History [Citracal + D Maximum] amoxicillin See Rx Instructions .ROUTE 04/16/20 04/16/20 History .COMPLEX PRN multivitamin with minerals 1 tab PO DAILY 04/16/20 04/16/20 History [Hair,Skin and Nails] Past Med/Surg History Medical History Abdominal hernia History of hypothyroidism History of positive PPD 2002. Was treated with meds x 9 months Internal hemorrhoids Lichen sclerosus et atrophicus Menopause Morbid obesity Mucinous carcinoma of breast Osteoarthritis PAD (peripheral artery disease) Pulmonary nodules Per chest CT 04/19 Vaginal itching Vulvitis Surgical History Difficult airway for intubation noted from a prior surgery in medical record, patient was unaware. Family history of reaction to anesthesia Mother- "slow to wake", PONV H/O wrist surgery Broken left wrist 2006 History of arthroscopy Bilateral knee History of bilateral tubal ligation History of cholecystectomy History of colonoscopy 2014 [facility] History of gastric bypass 2006 History of herniorrhaphy umbilical 2014 History of hysterectomy BSO 1990 History of surgery on arm Broken right upper arm 2011 History of tooth extraction History of total left knee replacement History of total right knee replacement (TKR) S/P lumpectomy, left breast (01/09/20) Left Breast Lumpectomy with Localization, Juanita Travelift Operator( 01-03-20) vs. Wire, and Left Axillary [place] Lymph Node Biopsy(Left) - Luis Quintero DO, FACS 01/09/20 Family History Mother , 88yo Obstruction of bowel Cancer Stroke Father , 39yo Industrial accident Brother A-fib Son MVA (motor vehicle accident) Other No family history of adverse response to anesthesia Patient's mother is Social History Smoking Status: Never smoker Second Hand Exposure: Yes (hx -- family members); Hx Alcohol Use: No Hx Substance Use: No Preferred Language: Latvian Communication Ability: Effective Visual Impairment: No Limitations Hearing Ability: Normal Bridge Operator Required: No Beliefs That Will Affect Care: None marital status: Current Living Situation: Spouse current occupational status: retired 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, 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 Feels Safe at Home: Yes Safety Concerns: Feels Safe At This Time caffeine: Yes (4-5 cups/day) during the past year weight has: remained stable Review of Systems Review of Systems: All systems reviewed & are unremarkable except as noted in HPI & below Physical Exam Constitutional: + obese Eyes: PERRL, conjunctivae normal, anicteric sclerae ENMT: external ear and nose normal, oropharynx normal Respiratory: normal respiratory effort, lungs clear to auscultation Cardiovascular: RRR, no murmur, no edema Chest (Breasts): Additional Comments: Left breast with ~10 x 15 cm area of erythema with noted overlying skin abrasion central to lateral. Left breast tender to touch with central area of fluctuance with no discharge elicited Gastrointestinal (Abdomen): normal bowel sounds, soft, nontender, no hepatosplenomegaly Skin: Trauma: + abrasion (Left breast with dermal layer exposed) Psychiatric: A+Ox3, euthymic affect Results & Data Results & Data ([facility]) Vital Signs (Past 12 Hours) Vital Signs Temp Pulse Resp BP Pulse Ox 04/16/20 16:00 85 27 H 137/93 98 04/16/20 14:30 90 20 116/85 96 04/16/20 14:00 96 H 20 123/86 96 04/16/20 13:37 37.1 C 104 H 18 119/80 93 Laboratory Results Laboratory Results - last 24 hr 04/16/20 04/16/20 04/16/20 13:47 15:40 15:40 WBC 9.40 RBC 3.97 L Hgb 12.2 Hct 36.9 L MCV 92.9 MCH 30.7 MCHC 33.1 RDW Std Deviation 44.7 RDW Coeff of Marya 13.0 Plt Count 311 MPV 9.8 Immature Gran % (Auto) 0.3 Neut % (Auto) 79.4 Lymph % (Auto) 11.1 Bremer % (Auto) 8.3 Eos % (Auto) 0.7 Baso % (Auto) 0.2 Neut # (Auto) 7.46 H Lymph # (Auto) 1.04 L Bremer # (Auto) 0.78 H Eos # (Auto) 0.07 Baso # (Auto) 0.02 Immature Gran # (Auto) 0.03 H PT 11.0 INR 1.0 APTT 24.9 PTT Ratio 0.9 Sodium Potassium Chloride Carbon Dioxide Anion Gap BUN Creatinine Est Cr Clr Drug Dosing Est GFR ( Amer) Est GFR (Non-Af Amer) BUN/Creatinine Ratio Glucose Lactate Calcium Magnesium Total Bilirubin AST ALT Alkaline Phosphatase Total Protein Albumin Globulin Albumin/Globulin Ratio Procalcitonin Urine Color Tana Urine Appearance Cloudy A Urine pH 6.0 Ur Specific [place] 1.025 Urine Protein 2+ H Urine Glucose (UA) Negative Urine Ketones Trace H Urine Blood 3+ H Urine Nitrite Negative Urine Bilirubin Negative Urine Urobilinogen Positive H Ur Leukocyte Esterase Negative Urine RBC 10-30 H Urine WBC 10-30 H Ur Epithelial Cells >30 H Amorphous Sediment Present A Urine Bacteria 1+ H COVID-19 Eval Order SARS-CoV-2, RNA, NAAT 04/16/20 04/16/20 04/16/20 15:40 15:40 15:40 WBC RBC Hgb Hct MCV MCH MCHC RDW Std Deviation RDW Coeff of Marya Plt Count MPV Immature Gran % (Auto) Neut % (Auto) Lymph % (Auto) [place] % (Auto) Eos % (Auto) Baso % (Auto) Neut # (Auto) Lymph # (Auto) Bre[place] # (Auto) Eos # (Auto) Baso # (Auto) Immature Gran # (Auto) PT INR APTT PTT Ratio Sodium 139 Potassium 3.7 Chloride 103 Carbon Dioxide 32 Anion Gap 4.0 BUN 12 Creatinine 0.75 Est Cr Clr Drug Dosing 87.4 Est GFR ( Amer) 96.9 Est GFR (Non-Af Amer) 83.6 BUN/Creatinine Ratio 16.3 Glucose 96 Lactate 1.5 Calcium 8.4 L Magnesium 2.6 H Total Bilirubin 0.8 AST 23 ALT 30 Alkaline Phosphatase 120 H Total Protein 7.6 Albumin 2.3 L Globulin 5.3 H Albumin/Globulin Ratio 0.4 L Procalcitonin < 0.05 Urine Color Urine Appearance Urine pH Ur Specific [place] Urine Protein Urine Glucose (UA) Urine Ketones Urine Blood Urine Nitrite Urine Bilirubin Urine Urobilinogen Ur Leukocyte Esterase Urine RBC Urine WBC Ur Epithelial Cells Amorphous Sediment Urine Bacteria COVID-19 Eval Order SARS-CoV-2, RNA, NAAT 04/16/20 04/16/20 17:15 17:15 WBC RBC Hgb Hct MCV MCH MCHC RDW Std Deviation RDW Coeff of Marya Plt Count MPV Immature Gran % (Auto) Neut % (Auto) Lymph % (Auto) [place] % (Auto) Eos % (Auto) Baso % (Auto) Neut # (Auto) Lymph # (Auto) [place] # (Auto) Eos # (Auto) Baso # (Auto) Immature Gran # (Auto) PT INR APTT PTT Ratio Sodium Potassium Chloride Carbon Dioxide Anion Gap BUN Creatinine Est Cr Clr Drug Dosing Est GFR ( Amer) Est GFR (Non-Af Amer) BUN/Creatinine Ratio Glucose Lactate Calcium Magnesium Total Bilirubin AST ALT Alkaline Phosphatase Total Protein Albumin Globulin Albumin/Globulin Ratio Procalcitonin Urine Color Urine Appearance Urine pH Ur Specific [place] Urine Protein Urine Glucose (UA) Urine Ketones Urine Blood Urine Nitrite Urine Bilirubin Urine Urobilinogen Ur Leukocyte Esterase Urine RBC Urine WBC Ur Epithelial Cells Amorphous Sediment Urine Bacteria COVID-19 Eval Order Covid19 [facility] SARS-CoV-2, RNA, NAAT NEGATIVE Medications Administered Current Inpatient Medications Miscellaneous Information (Vancomycin Consult Active) 1 ea N/A UD PRN PRN Reason: Consult Stop: 05/16/20 14:25 Morphine Sulfate (Morphine Sulfate 4 Mg/Ml 1 Ml Carp\\Vial) 4 mg IV Q2H PRN PRN Reason: Pain Stop: 04/30/20 16:59 Code Status & VTE Plan Code Status DNR/DNI Resident Activity Tracking Resident Involvement: Resident Care Provided Care Provided: Adult Hospital Medicine
[2020-04-16] MEDS ORDERED: OPTIRAY 320 125ml IV ONE (19:30)
[2020-04-16] MEDS ORDERED: PIPERACILLIN/TAZOBACTAM 4.5 GM/120ML D5W ONE (20:11)
--- NOTE | 2020-04-16 20:22 | Surgery Consultation ---
Date of Consultation April 16, 2020 Assessment & Plan (1) Breast abscess: pt is a 64 year-old female who presents to Er with one week history left breast infection with drainage, fever chills, U/S study- left breast abscess IMP: left breast abscess, Plan, I recommend to do I/D left breast abscess, D/W benefits, risks and alternatives of the surgery, the risks - infection, bleeding, unhealing wound, sepsis, , pt understood,, she agrees with the surgery, I answered all questions, pre-op antibiotic, Present on Admission?: Yes History of Present Illness History of Present Illness Chief Complaint: Breast pain, drainage HPI: Patient does present for worsening breast pain and drainage. Patient states that she has had some fevers and chills and has had some decreased taste and smell. The patient did have a recent Covid test which is pending. The patient states that she had noticed the worsening pain since last Tuesday. 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 Garcia. The patient states that she has tried taking [id number] medications without much relief but noticed increasing swelling and drainage. The patient has stated that she did require drainage before where she thought she had approximate 1 L removed from the left breast. Patient denies any nausea or vomiting. The patient has had some decreased p.o. intake. Past Med/Surg History I ( Jessica Bennett MD ) got a call for consult left breast abscess, I reviewed pt's H/P, labs, U/S study with pt, I also call radiologist who was service operations manager for reading U/S study, multiple fluid collection on left breast. Medical History Abdominal hernia History of hypothyroidism History of positive PPD 2002. Was treated with meds x 9 months Internal hemorrhoids Lichen sclerosus et atrophicus Menopause Morbid obesity Mucinous carcinoma of breast Osteoarthritis PAD (peripheral artery disease) Pulmonary nodules Per chest CT 04/19 Vaginal itching Vulvitis Surgical History Difficult airway for intubation noted from a prior surgery in medical record, patient was unaware. Family history of reaction to anesthesia Mother- "slow to wake", PONV H/O wrist surgery Broken left wrist 2006 History of arthroscopy Bilateral knee History of bilateral tubal ligation History of cholecystectomy History of colonoscopy 2015 [place] History of gastric bypass 2006 History of herniorrhaphy umbilical 2014 History of hysterectomy BSO 1989 History of surgery on arm Broken right upper arm 2011 History of tooth extraction History of total left knee replacement History of total right knee replacement (TKR) S/P lumpectomy, left breast (01/09/20) Left Breast Lumpectomy with Localization, Juanita Inventory Coordinator( 01-03-20) vs. Wire, and Left Axillary [place] Lymph Node Biopsy(Left) - Luis Quintero DO, FACS 01/09/20 Family History Mother , 88yo Obstruction of bowel Cancer Stroke Father , 39yo Industrial accident Brother A-fib Son MVA (motor vehicle accident) Other No family history of adverse response to anesthesia Patient's mother is Social History Smoking Status: Never smoker Second Hand Exposure: Yes (hx -- family members); Hx Alcohol Use: No Hx Substance Use: No Preferred Language: Moroccan Communication Ability: Effective Visual Impairment: No Limitations Hearing Ability: Normal Network Control Operators Supervisor Required: No Beliefs That Will Affect Care: None marital status: Current Living Situation: Alone Current Living Situation Comment: Has SO current occupational status: retired 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, 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 Feels Safe at Home: Yes caffeine: Yes (4-5 cups/day) during the past year weight has: remained stable Allergies Allergies Allergy/AdvReac Type Severity Reaction Status Date / Time No Known Allergies Allergy Verified 04/16/20 16:20 Home Meds Home Medications Medication Instructions Recorded Confirmed multivitamin 1 cap PO QAM #0 12/28/10 04/16/20 calcium citrate-vitamin D3 2 tab PO QAM 01/02/18 04/16/20 [Citracal + D Maximum] amoxicillin See Rx Instructions .ROUTE 04/16/20 04/16/20 .COMPLEX PRN multivitamin with minerals 1 tab PO DAILY 04/16/20 04/16/20 [Hair,Skin and Nails] Results & Data (ED) Vital Signs Vital Signs - 24 hr 04/16/20 13:37 04/16/20 14:00 04/16/20 14:25 Temperature 37.1 C Temperature Source Oral Pulse Rate 104 H 96 H Pulse Rate from SpO2 Sensor 96 H Respiratory Rate 18 20 Blood Pressure 119/80 123/86 Blood Pressure Mean 93 96 Pulse Oximetry 93 96 Oxygen Delivery Method Room Air Room Air Sepsis Recent Fever Within 48 Hours Yes Sepsis New/Unexplained Change in Mental Status No Sepsis Action Taken by Nursing No Action Required 04/16/20 14:30 04/16/20 16:00 04/16/20 16:30 Temperature Temperature Source Pulse Rate 90 85 85 Pulse Rate from SpO2 Sensor 90 85 85 Respiratory Rate 20 27 H 24 Blood Pressure 116/85 137/93 128/95 Blood Pressure Mean 99 105 112 Pulse Oximetry 96 98 98 Oxygen Delivery Method Sepsis Recent Fever Within 48 Hours Sepsis New/Unexplained Change in Mental Status Sepsis Action Taken by Nursing 04/16/20 17:00 04/16/20 17:30 04/16/20 18:00 Temperature Temperature Source Pulse Rate 83 84 85 Pulse Rate from SpO2 Sensor 83 84 85 Respiratory Rate 19 20 26 H Blood Pressure 162/83 H 139/73 133/86 Blood Pressure Mean 97 81 97 Pulse Oximetry 96 98 98 Oxygen Delivery Method Sepsis Recent Fever Within 48 Hours Sepsis New/Unexplained Change in Mental Status Sepsis Action Taken by Nursing 04/16/20 18:30 04/16/20 19:00 04/16/20 19:30 Temperature Temperature Source Pulse Rate 85 86 84 Pulse Rate from SpO2 Sensor 87 89 Respiratory Rate 24 25 H 23 Blood Pressure 136/110 H 148/94 H 131/85 Blood Pressure Mean 117 103 95 Pulse Oximetry 96 96 Oxygen Delivery Method Sepsis Recent Fever Within 48 Hours Sepsis New/Unexplained Change in Mental Status Sepsis Action Taken by Jail Medications Current Medication List: was personally reviewed by me Laboratory Data Attestation: I reviewed the patient's lab results. Result diagrams: 04/16/20 15:40 document embedded image 04/16/20 15:40 document embedded image Lab Results 04/16/20 04/16/20 04/16/20 Range/Units 13:47 15:40 15:40 WBC 9.40 (4.8-10.8) K/uL RBC 3.97 L (4.2-5.4) M/uL Hgb 12.2 (12.0-16.0) g/dL Hct 36.9 L (37-47) % MCV 92.9 (80-100) fL MCH 30.7 (25-34) pg MCHC 33.1 (32-36) g/dL RDW Std Deviation 44.7 (36.4-46.3) fL RDW Coeff of Marya 13.0 (11.5-14.5) % Plt Count 311 (130-400) K/uL MPV 9.8 (7.4-10.4) fL Immature Gran % (Auto) 0.3 % Neut % (Auto) 79.4 % Lymph % (Auto) 11.1 % [place] % (Auto) 8.3 % Eos % (Auto) 0.7 % Baso % (Auto) 0.2 % Neut # (Auto) 7.46 H (1.4-6.5) K/uL Lymph # (Auto) 1.04 L (1.2-3.4) K/uL [place] # (Auto) 0.78 H (0.11-0.59) K/uL Eos # (Auto) 0.07 (0-0.5) K/uL Baso # (Auto) 0.02 (0-0.2) K/uL Immature Gran # (Auto) 0.03 H (0.00-0.02) K/uL PT 11.0 (9.0-12.0) Seconds INR 1.0 (0.9-1.1) APTT 24.9 (21.0-31.0) Seconds PTT Ratio 0.9 Sodium (136-145) mmol/L Potassium (3.5-5.1) mmol/L Chloride (98-107) mmol/L Carbon Dioxide (21-32) mmol/L Anion Gap (3-11) BUN (7-18) mg/dl Creatinine (0.6-1.2) mg/dl Est Cr Clr Drug Dosing ml/min Est GFR ( Amer) Est GFR (Non-Af Amer) BUN/Creatinine Ratio (10-20) Glucose (70-99) mg/dl Lactate (0.4-2.0) mmol/L Calcium (8.5-10.1) mg/dl Magnesium (1.8-2.4) mg/dl Total Bilirubin (0.2-1) mg/dl AST (15-37) U/L ALT (12-78) U/L Alkaline Phosphatase (45-117) U/L Total Protein (6.4-8.2) gm/dl Albumin (3.4-5.0) gm/dl Globulin (2.5-4.0) gm/dl Albumin/Globulin Ratio (0.9-2) Procalcitonin (0-0.5) ng/ml Urine Color Tana Urine Appearance Cloudy A (Clear) Urine pH 6.0 (4.5-7.5) Ur Specific Pep 1.025 (1.000-1.030) Urine Protein 2+ H (Negative) Urine Glucose (UA) Negative (Negative) Urine Ketones Trace H (Negative) Urine Blood 3+ H (Negative) Urine Nitrite Negative (Negative) Urine Bilirubin Negative (Negative) Urine Urobilinogen Positive H (Negative) Ur Leukocyte Esterase Negative (Negative) Urine RBC 10-30 H (0-4) /hpf Urine WBC 10-30 H (0-5) /hpf Ur Epithelial Cells >30 H (0-5) /lpf Amorphous Sediment Present A (None Prsent) Urine Bacteria 1+ H (Negative) COVID-19 Eval Order SARS-CoV-2, RNA, NAAT (NEGATIVE) 04/16/20 04/16/20 04/16/20 Range/Units 15:40 15:40 15:40 WBC (4.8-10.8) K/uL RBC (4.2-5.4) M/uL Hgb (12.0-16.0) g/dL Hct (37-47) % MCV (80-100) fL MCH (25-34) pg MCHC (32-36) g/dL RDW Std Deviation (36.4-46.3) fL RDW Coeff of Marya (11.5-14.5) % Plt Count (130-400) K/uL MPV (7.4-10.4) fL Immature Gran % (Auto) % Neut % (Auto) % Lymph % (Auto) % [place] % (Auto) % Eos % (Auto) % Baso % (Auto) % Neut # (Auto) (1.4-6.5) K/uL Lymph # (Auto) (1.2-3.4) K/uL [place] # (Auto) (0.11-0.59) K/uL Eos # (Auto) (0-0.5) K/uL Baso # (Auto) (0-0.2) K/uL Immature Gran # (Auto) (0.00-0.02) K/uL PT (9.0-12.0) Seconds INR (0.9-1.1) APTT (21.0-31.0) Seconds PTT Ratio Sodium 139 (136-145) mmol/L Potassium 3.7 (3.5-5.1) mmol/L Chloride 103 (98-107) mmol/L Carbon Dioxide 32 (21-32) mmol/L Anion Gap 4.0 (3-11) BUN 12 (7-18) mg/dl Creatinine 0.75 (0.6-1.2) mg/dl Est Cr Clr Drug Dosing 87.4 ml/min Est GFR ( Amer) 96.9 Est GFR (Non-Af Amer) 83.6 BUN/Creatinine Ratio 16.3 (10-20) Glucose 96 (70-99) mg/dl Lactate 1.5 (0.4-2.0) mmol/L Calcium 8.4 L (8.5-10.1) mg/dl Magnesium 2.6 H (1.8-2.4) mg/dl Total Bilirubin 0.8 (0.2-1) mg/dl AST 23 (15-37) U/L ALT 30 (12-78) U/L Alkaline Phosphatase 120 H (45-117) U/L Total Protein 7.6 (6.4-8.2) gm/dl Albumin 2.3 L (3.4-5.0) gm/dl Globulin 5.3 H (2.5-4.0) gm/dl Albumin/Globulin Ratio 0.4 L (0.9-2) Procalcitonin < 0.05 (0-0.5) ng/ml Urine Color Urine Appearance (Clear) Urine pH (4.5-7.5) Ur Specific Pep (1.000-1.030) Urine Protein (Negative) Urine Glucose (UA) (Negative) Urine Ketones (Negative) Urine Blood (Negative) Urine Nitrite (Negative) Urine Bilirubin (Negative) Urine Urobilinogen (Negative) Ur Leukocyte Esterase (Negative) Urine RBC (0-4) /hpf Urine WBC (0-5) /hpf Ur Epithelial Cells (0-5) /lpf Amorphous Sediment (None Prsent) Urine Bacteria (Negative) COVID-19 Eval Order SARS-CoV-2, RNA, NAAT (NEGATIVE) 04/16/20 04/16/20 Range/Units 17:15 17:15 WBC (4.8-10.8) K/uL RBC (4.2-5.4) M/uL Hgb (12.0-16.0) g/dL Hct (37-47) % MCV (80-100) fL MCH (25-34) pg MCHC (32-36) g/dL RDW Std Deviation (36.4-46.3) fL RDW Coeff of Marya (11.5-14.5) % Plt Count (130-400) K/uL MPV (7.4-10.4) fL Immature Gran % (Auto) % Neut % (Auto) % Lymph % (Auto) % [place] % (Auto) % Eos % (Auto) % Baso % (Auto) % Neut # (Auto) (1.4-6.5) K/uL Lymph # (Auto) (1.2-3.4) K/uL [place] # (Auto) (0.11-0.59) K/uL Eos # (Auto) (0-0.5) K/uL Baso # (Auto) (0-0.2) K/uL Immature Gran # (Auto) (0.00-0.02) K/uL PT (9.0-12.0) Seconds INR (0.9-1.1) APTT (21.0-31.0) Seconds PTT Ratio Sodium (136-145) mmol/L Potassium (3.5-5.1) mmol/L Chloride (98-107) mmol/L Carbon Dioxide (21-32) mmol/L Anion Gap (3-11) BUN (7-18) mg/dl Creatinine (0.6-1.2) mg/dl Est Cr Clr Drug Dosing ml/min Est GFR ( Amer) Est GFR (Non-Af Amer) BUN/Creatinine Ratio (10-20) Glucose (70-99) mg/dl Lactate (0.4-2.0) mmol/L Calcium (8.5-10.1) mg/dl Magnesium (1.8-2.4) mg/dl Total Bilirubin (0.2-1) mg/dl AST (15-37) U/L ALT (12-78) U/L Alkaline Phosphatase (45-117) U/L Total Protein (6.4-8.2) gm/dl Albumin (3.4-5.0) gm/dl Globulin (2.5-4.0) gm/dl Albumin/Globulin Ratio (0.9-2) Procalcitonin (0-0.5) ng/ml Urine Color Urine Appearance (Clear) Urine pH (4.5-7.5) Ur Specific Pep (1.000-1.030) Urine Protein (Negative) Urine Glucose (UA) (Negative) Urine Ketones (Negative) Urine Blood (Negative) Urine Nitrite (Negative) Urine Bilirubin (Negative) Urine Urobilinogen (Negative) Ur Leukocyte Esterase (Negative) Urine RBC (0-4) /hpf Urine WBC (0-5) /hpf Ur Epithelial Cells (0-5) /lpf Amorphous Sediment (None Prsent) Urine Bacteria (Negative) COVID-19 Eval [facility] SARS-CoV-2, RNA, NAAT NEGATIVE (NEGATIVE) Administered Medications Discontinued Medications Sodium Chloride (Nss 1000ml) 1,000 mls @ 999 mls/hr IV .[id number] OLYA Stop: 04/16/20 15:30 Last Infusion: 04/16/20 18:52 Dose: 0 mls/hr Documented by: [id number] Admin: 04/16/20 16:12 Dose: 999 mls/hr Documented by: [id number] Vancomycin HCl 2,500 mg/ (Sodium Chloride) 550 mls @ 200 mls/hr IV NOW ONE Stop: 04/16/20 17:12 Last Infusion: 04/16/20 18:53 Dose: 0 mls/hr Documented by: [id number] Admin: 04/16/20 16:13 Dose: 200 mls/hr Documented by: [id number] Ioversol (Optiray 320 125ml) 118 ml IV ONCE ONE Stop: 04/16/20 19:31 Last Admin: 04/16/20 19:30 Dose: 1 ml Documented by: [id number] Allergies Allergy/AdvReac Type Severity Reaction Status Date / Time No Known Allergies Allergy Verified 04/16/20 16:20 Home Medications Medication Instructions Recorded Confirmed Type multivitamin 1 cap PO QAM #0 12/28/10 04/16/20 History calcium citrate-vitamin D3 2 tab PO QAM 01/02/18 04/16/20 History [Citracal + D Maximum] amoxicillin See Rx Instructions .ROUTE 04/16/20 04/16/20 History .COMPLEX PRN multivitamin with minerals 1 tab PO DAILY 04/16/20 04/16/20 History [Hair,Skin and Nails] Patient History Medical History Abdominal hernia History of hypothyroidism History of positive PPD 2002. Was treated with meds x 9 months Internal hemorrhoids Lichen sclerosus et atrophicus Menopause Morbid obesity Mucinous carcinoma of breast Osteoarthritis PAD (peripheral artery disease) Pulmonary nodules Per chest CT 04/19 Vaginal itching Vulvitis Surgical History Difficult airway for intubation noted from a prior surgery in medical record, patient was unaware. Family history of reaction to anesthesia Mother- "slow to wake", PONV H/O wrist surgery Broken left wrist 2007 History of arthroscopy Bilateral knee History of bilateral tubal ligation History of cholecystectomy History of colonoscopy 2014 [place] History of gastric bypass 2006 History of herniorrhaphy umbilical 2014 History of hysterectomy BSO 1989 History of surgery on arm Broken right upper arm 2011 History of tooth extraction History of total left knee replacement History of total right knee replacement (TKR) S/P lumpectomy, left breast (01/09/20) Left Breast Lumpectomy with Localization, Juanita Inventory Coordinator( 01-03-20) vs. Wire, and Left Axillary [place] Lymph Node Biopsy(Left) - Luis Quintero DO, FACS 01/09/20 Family History Mother , 88yo Obstruction of bowel Cancer Stroke Father , 39yo Industrial accident Brother A-fib Son MVA (motor vehicle accident) Other No family history of adverse response to anesthesia Patient's mother is Social History Smoking Status: Never smoker Second Hand Exposure: Yes (hx -- family members); Hx Alcohol Use: No Hx Substance Use: No Preferred Language: Moroccan Communication Ability: Effective Visual Impairment: No Limitations Hearing Ability: Normal Network Control Operators Supervisor Required: No Beliefs That Will Affect Care: None marital status: Current Living Situation: Alone Current Living Situation Comment: Has SO current occupational status: retired 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, 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 Feels Safe at Home: Yes caffeine: Yes (4-5 cups/day) during the past year weight has: remained stable Review of Systems Review of Systems: All systems reviewed & are unremarkable except as noted in HPI & below Constitutional: as per Subjective / HPI Eyes: as per Subjective / HPI Ear, Nose, Mouth, Throat: as per Subjective / HPI Respiratory: as per Subjective / HPI lung nodule Cardiovascular: as per Subjective / HPI Additional Comments: PVD Gastrointestinal: as per Subjective / HPI abdominal hernia Genitourinary: as per Subjective / HPI left breast cancer with surgery, 01/02 Musculoskeletal: as per Subjective / HPI Integumentary: as per Subjective / HPI Neurologic: as per Subjective / HPI Psychiatric: as per Subjective / HPI Endocrine: as per Subjective / HPI hypothyroidism Hematologic / Lymphatic: as per Subjective / HPI Allergy / Immunological: as per Subjective / HPI Physical Exam Constitutional: WD/WN, vitals as above well developed, well nourished and + acute distress Eyes: PERRL, conjunctivae normal, anicteric sclerae ENMT: external ear and nose normal, oropharynx normal Neck: trachea midline, no thyromegaly Respiratory: normal respiratory effort, lungs clear to auscultation normal respiratory effort Cardiovascular: RRR, no murmur, no edema Rate/Rhythm: regular rate and regular rhythm Chest (Breasts): Additional Comments: significant redness and tenderness at left breast, most locate at 2-4 O'clock, with fluid collection, right breast normal finding. Gastrointestinal (Abdomen): normal bowel sounds, soft, nontender, no hepatosplenomegaly Musculoskeletal: no cyanosis or clubbing, extremities motor strength 5/5 Skin: see left breast exam, Neurologic: awake Psychiatric: Orientation: alert and oriented x 3 Results & Data ([facility]) Vital Signs (Past 12 Hours) Vital Signs Temp Pulse Resp BP Pulse Ox 04/16/20 19:30 84 23 131/85 96 12/02/20 19:00 86 25 H 148/94 H 96 04/16/20 18:30 85 24 136/110 H 04/16/20 18:00 85 26 H 133/86 98 04/16/20 17:30 84 20 139/73 98 04/16/20 17:00 83 19 162/83 H 96 04/16/20 16:30 85 24 128/95 98 04/16/20 16:00 85 27 H 137/93 98 04/16/20 14:30 90 20 116/85 96 04/16/20 14:00 96 H 20 123/86 96 04/16/20 13:37 37.1 C 104 H 18 119/80 93 Laboratory Results Abnormal lab results 04/16/20 04/16/20 04/16/20 Range/Units 13:47 15:40 15:40 RBC 3.97 L (4.2-5.4) M/uL Hct 36.9 L (37-47) % Neut # (Auto) 7.46 H (1.4-6.5) K/uL Lymph # (Auto) 1.04 L (1.2-3.4) K/uL [place] # (Auto) 0.78 H (0.11-0.59) K/uL Immature Gran # (Auto) 0.03 H (0.00-0.02) K/uL Calcium 8.4 L (8.5-10.1) mg/dl Magnesium 2.6 H (1.8-2.4) mg/dl Alkaline Phosphatase 120 H (45-117) U/L Albumin 2.3 L (3.4-5.0) gm/dl Globulin 5.3 H (2.5-4.0) gm/dl Albumin/Globulin Ratio 0.4 L (0.9-2) Urine Appearance Cloudy A (Clear) Urine Protein 2+ H (Negative) Urine Ketones Trace H (Negative) Urine Blood 3+ H (Negative) Urine Urobilinogen Positive H (Negative) Urine RBC 10-30 H (0-4) /hpf Urine WBC 10-30 H (0-5) /hpf Ur Epithelial Cells >30 H (0-5) /lpf Amorphous Sediment Present A (None Prsent) Urine Bacteria 1+ H (Negative)
--- NOTE | 2020-04-16 20:35 | History & Physical Bridge Note ---
Date of Service April 16, 2020 History & Physical Bridge Note I have examined the patient, reviewed the History & Physical and in the interval since the performance of the History & Physical I have noted the following changes of clinical significance: no changes noted
[2020-04-16] MEDS ORDERED: ATROPINE SULFATE 0.1 MG/ML 10ML SYR IV PRN (21:02)
[2020-04-16] MEDS ORDERED: ONDANSETRON INJ 2 MG/ML 2 ML VIAL IV PRN ×2 (21:02→23:04)
[2020-04-16] MEDS ORDERED: ePHEDrine sulfate 50 MG/ML AMP IV PRN (21:02)
[2020-04-16] MEDS ORDERED: MEPERIDINE HCL 25 MG/ML CARP/VIAL IV PRN (21:02)
[2020-04-16] MEDS ORDERED: LABETALOL HCL IV 5 MG/ML 20ML IV PRN (21:02)
[2020-04-16] MEDS ORDERED: HYDROmorphone INJ 1 MG/ML SYRINGE IV PRN (21:02)
[2020-04-16] MEDS ORDERED: PHENYLEPHRINE 100MCG/ML 5ML SYR IV PRN (21:02)
[2020-04-16] MEDS ORDERED: fentaNYL citrate 100 MCG/2 ML VIAL IV PRN (21:02)
--- NOTE | 2020-04-16 21:04 | Anesthesiology Consultation ---
Date of Service April 16, 2020 Covid 19 negative today. Assessment & Plan (1) Encounter for pre-operative examination: Chart Review Chart Review: Acceptable Risk for Surgery and Patient NOT seen in Pre Admission Testing Consults Requested none History Surgery Operation Date: 04/16/20 21:30 Proposed Procedures p Left Breast Abscess Incision and Drainage - Jessica Bennett MD Height/Weight Height: 5 ft 2 in Weight: 117.9 kg Allergies Allergy/AdvReac Type Severity Reaction Status Date / Time No Known Allergies Allergy Verified 04/16/20 16:20 Medications Home Medications Medication Instructions Recorded Confirmed Last Taken multivitamin 1 cap PO QAM #0 12/28/10 04/16/20 01/07/20 calcium citrate-vitamin D3 2 tab PO QAM 01/02/18 04/16/20 01/07/20 [Citracal + D Maximum] amoxicillin See Rx Instructions .ROUTE 04/16/20 04/16/20 Unknown .COMPLEX PRN multivitamin with minerals 1 tab PO DAILY 04/16/20 04/16/20 Unknown [Hair,Skin and Nails] Past Medical History Medical History Abdominal hernia History of hypothyroidism History of positive PPD 2002. Was treated with meds x 9 months Internal hemorrhoids Lichen sclerosus et atrophicus Menopause Morbid obesity Mucinous carcinoma of breast Osteoarthritis PAD (peripheral artery disease) Pulmonary nodules Per chest CT 04/19 Vaginal itching Vulvitis Past Family History Family History Mother , 88yo Obstruction of bowel Cancer Stroke Father , 39yo Industrial accident Brother A-fib Son MVA (motor vehicle accident) Other No family history of adverse response to anesthesia Patient's mother is Past Surgical History Surgical History Difficult airway for intubation noted from a prior surgery in medical record, patient was unaware. Family history of reaction to anesthesia Mother- "slow to wake", PONV H/O wrist surgery Broken left wrist 2007 History of arthroscopy Bilateral knee History of bilateral tubal ligation History of cholecystectomy History of colonoscopy 2014 [place] History of gastric bypass 2006 History of herniorrhaphy umbilical 2014 History of hysterectomy BSO 1989 History of surgery on arm Broken right upper arm 2011 History of tooth extraction History of total left knee replacement History of total right knee replacement (TKR) S/P lumpectomy, left breast (01/09/20) Left Breast Lumpectomy with Localization, Juanita Outboard Motorboat Rigger( 01-03-20) vs. Wire, and Left Axillary [place] Lymph Node Biopsy(Left) - Luis Quintero DO, FACS 01/09/20 Social History Smoking Status: Never smoker Hx Alcohol Use: No Hx Substance Use: No substance use type: does not use Physical Exam Vital Signs Last Vital Signs Temp 37.1 C 04/16/20 13:37 Pulse 86 04/16/20 20:38 Resp 23 04/16/20 19:30 BP 139/91 04/16/20 20:38 Pulse Ox 96 04/16/20 20:38 Testing Laboratory Results 04/16/20 15:40 04/16/20 15:40 PT 11.0 Seconds (9.0-12.0) 04/16/20 15:40 INR 1.0 (0.9-1.1) 04/16/20 15:40 APTT 24.9 Seconds (21.0-31.0) 04/16/20 15:40 Urine Color Tana 04/16/20 13:47 Urine Appearance Cloudy (Clear) A 04/16/20 13:47 Urine pH 6.0 (4.5-7.5) 04/16/20 13:47 Ur Specific [place] 1.025 (1.000-1.030) 04/16/20 13:47 Urine Protein 2+ (Negative) H 04/16/20 13:47 Urine Glucose (UA) Negative (Negative) 04/16/20 13:47 Urine Ketones Trace (Negative) H 04/16/20 13:47 Urine Nitrite Negative (Negative) 04/16/20 13:47 Ur Leukocyte Esterase Negative (Negative) 04/16/20 13:47 Urine RBC 10-30 /hpf (0-4) H 04/16/20 13:47 Urine WBC 10-30 /hpf (0-5) H 04/16/20 13:47 Ur Epithelial Cells >30 /lpf (0-5) H 04/16/20 13:47 Electrocardiogram Date: 04/16/20 Findings: + NSR @ (87) and + NSST changes Chest X-Ray Date: 04/16/20 XR chest 1V portable HISTORY: SEPSIS COMPARISON: Chest 01/09/2020. FINDINGS: Old, healed left-sided rib fractures. Right lung is clear. The chronic silhouette is top normal in size. No pleural effusions. No pneumothorax. A few small left basilar linear densities. This favors atelectasis or scarring. IMPRESSION: Left basilar linear densities. These are nonspecific but favor scar ring/atelectasis. A pneumonia could also have a similar appearance in the appropriate clinical setting. ACT 112: Negative or not required by law. Electronically signed by: Harpreet Kiran M.D. 04/16/2020 4:01 PM Dictated: 04/16/20 [id number]: 04/16/20 [id number]
[2020-04-16] MEDS ORDERED: PROPOFOL IV EMULSION 10 MG/ML 20 ML VIAL IV ONE (21:06)
[2020-04-16] MEDS ORDERED: fentaNYL citrate 100 MCG/2 ML VIAL ONE (21:06)
[2020-04-16] MEDS ORDERED: LIDOCAINE HCL 2% 2 ML VIAL/AMP(20MG/ML) INFIL ONE (21:07)
[2020-04-16] MEDS ORDERED: MIDAZOLAM HCL 1 MG/ML 2ML VIAL ONE (21:07)
[2020-04-16] MEDS ORDERED: BACITRACIN OINT 15 GM TUBE ONE (21:21)
[2020-04-16] MEDS ORDERED: BUPIVACAINE 0.5 % 5 MG/1 ML MPF 30ML VIAL ONE (21:21)
[2020-04-16] MEDS ORDERED: LIDOCAINE HCL 1% 20 ML VIAL ONE (21:21)
[2020-04-16] MEDS ORDERED: KETAMINE 50 MG/5 ML SYRINGE ONE (21:40)
--- NOTE | 2020-04-16 22:00 | Post Operative Brief Note ---
Immediate Post Op Note v1 Date of Surgery April 16, 2020 Pre & Post Diagnosis Operation Date: 04/16/20 21:30 pre-op diagnosis: left breast abscess post-op diagnosis: left breast abscess I identified the patient and participated in the time-out.: Yes Procedure Operation Date: 04/16/20 21:30 Incision and drainage left breast abscess Surgeon Jessica Bennett MD Associate Director Finance ophthalmology surgical technician Estimated Blood Loss 5 Findings Consistent with Post-Op Diagnosis left breast abscess, wound culture sent Fluids 300ml Specimens wound culture Drains Other (packing the wound) Anesthesia Type Local Disposition Accompanied Patient To Recovery: Yes Disposition: Recovery Room Overlapping Procedure I was immediately available: during the entire case.
--- NOTE | 2020-04-16 22:15 | Anesthesiology Progress Note ---
Date of Service April 16, 2020 Anesthesia Post Procedure Vital Signs Vital Signs: Temp Pulse Pulse Resp BP BP Pulse Ox 04/16/20 20:38 86 139/91 96 04/16/20 19:30 84 23 131/85 96 04/16/20 19:00 86 25 H 148/94 H 96 04/16/20 18:30 85 24 136/110 H 04/16/20 18:00 85 26 H 133/86 98 04/16/20 17:30 84 20 139/73 98 04/16/20 17:00 83 19 162/83 H 96 04/16/20 16:30 85 24 128/95 98 04/16/20 16:00 85 27 H 137/93 98 04/16/20 14:30 90 20 116/85 96 04/16/20 14:00 96 H 20 123/86 96 04/16/20 13:37 37.1 C 104 H 18 119/80 93 Transfer of Care Handoff Completed per policy Notes Mental Status: alert / awake / arousable Patient Amnestic to Procedure: Yes Nausea / Vomiting: adequately controlled Pain: adequately controlled Airway Patency, RR, SpO2: stable & adequate BP & HR: stable & adequate Hydration State: stable & adequate Anesthetic Complications: no major complications apparent and Pt Satisfied with anesthetic care Notes: The patient is awake and comfortable in recovery. Her vital signs are stable.
[2020-04-16] MEDS ORDERED: MoRPHine SULFATE 2 MG/ML CARP IV PRN (23:04)
[2020-04-16] MEDS ORDERED: ALUMINUM/MAGNESIUM SUSP 30 ML UDC PO PRN (23:04)
[2020-04-16] MEDS ORDERED: PIPERACILL/TAZOBAC CONSULT ACTIVE PRN (23:04)
[2020-04-16] MEDS ORDERED: NON-FORMULARY MEDICATION (Amoxicillin 500 mg tablet) PRN (23:04)
[2020-04-17] MEDS: ACETAMINOPHEN 325 MG TAB PO PRN (00:13)
[2020-04-17] MEDS: KETOROLAC TROMETHAMINE 15 MG/ML VIAL IV PRN ×2 (00:14→20:09)
[2020-04-17] MEDS: PIPERACILLIN/TAZOBACTAM 4.5 GM in DEXTROSE 5% 100 ML IV SCH ×2 (02:06→10:58)
--- NOTE | 2020-04-17 02:22 | Operative Report (OR) ---
DATE OF OPERATION: 04/16/2020 PREOPERATIVE DIAGNOSIS: Left breast abscess. POSTOPERATIVE DIAGNOSIS: Left breast abscess. PROCEDURE: Incision and drainage, left breast abscess. SURGEON: Jessica Bennett MD. ANESTHESIA: Local conscious sedation. ESTIMATED BLOOD LOSS: About 5 mL. FINDINGS: Left breast abscess. Wound culture sent. COMPLICATIONS: None. INDICATIONS FOR THE PROCEDURE: This is a 64-year-old female who presented with left sided breast abscess with fever, chills and drainage and patient will be required to do I&D left sided breast abscess. I did talk to the patient about the benefit, the risk, alternate procedure. I indicated the risks may include but not limited such as bleeding, infection, and healing the wound, sepsis, even , deformation of the breast. The patient understands. She signed informed consent and I answered all questions. DETAILS OF PROCEDURE: We brought the patient to the OR, put the patient in the supine position. The patient received SCD on bilateral legs to prevent DVT. Also, patient received 3.375 gram Zosyn IV for prophylactic antibiotic and the patient received conscious sedation by the anesthesiology. The left-sided breast was prepped and draped in routine sterile fashion. After time-out, I injected local anesthesia by using 1% lidocaine mixed with 0.5% Marcaine on the left side of breast and then I made about a 3 cm incision on the left side of the breast and immediately there are lot of pus coming out. We did send wound culture. Once we cleaned out the abscess, we chose Bacitracin with 2-inch Kerlix for packing the wound. Hemostasis was obtained. Then, we put the dressing on. The patient tolerated the procedure well. All instrument, needle and sponge count were correct x2 at the end of the case. The patient transferred to recovery room in stable condition. The wound culture sent to the laboratory. I attest to the content of the Intraoperative Record and any orders documented therein. Any exception s are noted below.
[2020-04-17] MEDS: VANCOMYCIN HCL 1,500 MG in SODIUM CHLORIDE 0.9% 500 ML IV SCH ×2 (06:09→19:14)
[2020-04-17 06:22] LABS: Basophils # (auto) 0.02 K/uL (0-0.2); Basophils % (auto) 0.3 %; Eosinophils # (auto) 0.22 K/uL (0-0.5); Eosinophils % (auto) 2.8 %; Hematocrit (blood only) 33.6 % (37-47); Hemoglobin 10.7 g/dL (12.0-16.0); Immature Granulocytes # (auto) 0.02 K/uL (0.00-0.02); Immature Granulocytes % (auto) 0.3 %; Lymphocytes # (auto) 1.05 K/uL (1.2-3.4); Lymphocytes % (auto) 13.2 %; Mean Corpuscular Hemoglobin 29.7 pg (25-34); Mean Corpuscular Hgb Conc 31.8 g/dL (32-36); Mean Corpuscular Volume 93.3 fL (80-100); Mean Platelet Volume 9.7 fL (7.4-10.4); Monocytes % (auto) 7.6 %; Neutrophils # (auto) 6.03 K/uL (1.4-6.5); Neutrophils % (auto) 75.8 %; Platelet Count 289 K/uL (130-400); RDW Coefficient of Variation 13.1 % (11.5-14.5); RDW Standard Deviation 45.4 fL (36.4-46.3); White Blood Count 7.94 K/uL (4.8-10.8)
[2020-04-17 06:45] LABS: Calcium 7.8 mg/dl (8.5-10.1); Est GFR (African American) 101.9; Est GFR (Non-African American) 87.9; Potassium 3.5 mmol/L (3.5-5.1)
[2020-04-17] MEDS: MULTIVITAMIN TAB PO SCH (09:08)
[2020-04-17] MEDS: CALCIUM 600MG + VIT D 400 IU TAB PO SCH (09:08)
[2020-04-17] MEDS: CEROVITE ADV FORMULA TAB PO SCH (09:08)
[2020-04-17] MEDS: ENOXAPARIN INJ 40 MG/0.4 ML SYR SQ SCH (09:09)
[2020-04-17] MEDS ORDERED: NYSTATIN POWDER 15GM BTL EXT PRN (10:54)
--- NOTE | 2020-04-17 11:29 | Hospitalist Progress Note ---
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 Garcia) completed last month presents with concerns of left breast pain, fevers, chills found to have abscess on ultrasound. * Ultrasound showing large pocket of fluid with septations likely consistent with abscess * IV vancomycin and Zosyn * Blood cultures NGTD after 24 hours * Pain management * General surgery consulted * POD#1 s/p LEFT breast I&D * Switch abx to Unasyn/Vanco to prevent toxicity * Culture from I&D with point-point growth -- follow * Wound RN consulted -- will need f/u wound care for dressing changes (2) S/P lumpectomy, left breast: * Left Breast Lumpectomy with Localization, Juanita Gar[employer]( 01-03-20) vs. Wire, and Left Axillary [place] Lymph Node Biopsy(Left) - Luis Quintero DO, FACS 01/09/20 * Follows locally (3) Mucinous carcinoma of left breast: * s/p lumpectomy (4) Pulmonary nodule: * Chest CT from April 2019 showing a few likely benign solid pulmonary nodules noted throughout the right lung measuring up to 5 mm * According to Fleischner criteria recommendations patient will be due for follow-up CT at 12 months which would be around this time. Given patient's somewhat shortness of breath moving around in the bed we will order CTA to additionally rule out PEs as well. * CTA pending Dispo: continue IV abx, monitor culture possible d/c on oral abx tomorrow pending cultures Admission and Anticipated Discharge Date Admission Date: April 16, 2020 Subjective Patient evaluated this morning. Had rude experience with IV and CT scan which was not done due to not having 18G. Discussed with nursing and will obtain and call CT. Patient's pain drastically improved with drainage. Previously drained for 500cc on the same side in the past. Had been draining for a while. Patient is s/p lumpectomy. Denies fever, chills, chest pain, shortness of breath, nausea or vomiting at this time. Plans for awaiting cultures and possible d/c in the next day or two. Questions/concerns addressed at this time. Review of Systems Review of Systems: All systems reviewed & are unremarkable except as noted in HPI & below Physical Exam Constitutional: + obese Eyes: PERRL, conjunctivae normal, anicteric sclerae ENMT: external ear and nose normal, oropharynx normal Neck: trachea midline, no thyromegaly Respiratory: normal respiratory effort, lungs clear to auscultation Cardiovascular: RRR, no murmur, no edema Chest (Breasts): Additional Comments: Left breast with ~10 x 15 cm area of erythema with noted overlying skin abrasion central to lateral. Left breast tender to touch with approx 3cm incision to lateral aspect with packing, bloody and purulant drainage noted to dressing tender to palpation dressing changed with RN Jerica Gastrointestinal (Abdomen): normal bowel sounds, soft, nontender, no hepatosplenomegaly Musculoskeletal: no cyanosis or clubbing, extremities motor strength 5/5 Skin: Trauma: + abrasion (Left breast with dermal layer exposed) Neurologic: PERRL, EOMI, accommodation nl, no face palsy, no dysarthria Psychiatric: A+Ox3, euthymic affect Lymphatic: no cervical or axillary lymphadenopathy Results & Data Results & Data ([facility]) Vital Signs (Past 12 Hours) Vital Signs Temp Pulse Resp BP Pulse Ox 04/17/20 08:01 37.0 C 75 16 108/69 94 04/17/20 01:55 37.1 C 88 15 118/55 L 93 04/17/20 00:53 37.2 C 86 16 110/63 93 04/16/20 23:59 37.6 C H 81 16 123/75 94 04/16/20 23:33 37.3 C 81 15 106/63 94 Laboratory Results 04/17/20 04/17/20 04/16/20 Range/Units 06:00 06:00 17:15 WBC 7.94 (4.8-10.8) K/uL RBC 3.60 L (4.2-5.4) M/uL Hgb 10.7 L (12.0-16.0) g/dL Hct 33.6 L (37-47) % MCV 93.3 (80-100) fL MCH 29.7 (25-34) pg MCHC 31.8 L (32-36) g/dL RDW Std Deviation 45.4 (36.4-46.3) fL RDW Coeff of Marya 13.1 (11.5-14.5) % Plt Count 289 (130-400) K/uL MPV 9.7 (7.4-10.4) fL Immature Gran % (Auto) 0.3 % Neut % (Auto) 75.8 % Lymph % (Auto) 13.2 % Todd % (Auto) 7.6 % Eos % (Auto) 2.8 % Baso % (Auto) 0.3 % Neut # (Auto) 6.03 (1.4-6.5) K/uL Lymph # (Auto) 1.05 L (1.2-3.4) K/uL Todd # (Auto) 0.60 H (0.11-0.59) K/uL Eos # (Auto) 0.22 (0-0.5) K/uL Baso # (Auto) 0.02 (0-0.2) K/uL Immature Gran # (Auto) 0.02 (0.00-0.02) K/uL PT (9.0-12.0) Seconds INR (0.9-1.1) APTT (21.0-31.0) Seconds PTT Ratio Sodium 139 (136-145) mmol/L Potassium 3.5 (3.5-5.1) mmol/L Chloride 107 (98-107) mmol/L Carbon Dioxide 29 (21-32) mmol/L Anion Gap 3.0 (3-11) BUN 12 (7-18) mg/dl Creatinine 0.72 (0.6-1.2) mg/dl Est Cr Clr Drug Dosing 95.0 ml/min Est GFR ( Amer) 101.9 Est GFR (Non-Af Amer) 87.9 BUN/Creatinine Ratio 16.0 (10-20) Glucose 108 H (70-99) mg/dl Lactate (0.4-2.0) mmol/L Calcium 7.8 L (8.5-10.1) mg/dl Magnesium (1.8-2.4) mg/dl Total Bilirubin (0.2-1) mg/dl AST (15-37) U/L ALT (12-78) U/L Alkaline Phosphatase (45-117) U/L Total Protein (6.4-8.2) gm/dl Albumin (3.4-5.0) gm/dl Globulin (2.5-4.0) gm/dl Albumin/Globulin Ratio (0.9-2) Procalcitonin (0-0.5) ng/ml Urine Color Urine Appearance (Clear) Urine pH (4.5-7.5) Ur Specific [place] (1.000-1.030) Urine Protein (Negative) Urine Glucose (UA) (Negative) Urine Ketones (Negative) Urine Blood (Negative) Urine Nitrite (Negative) Urine Bilirubin (Negative) Urine Urobilinogen (Negative) Ur Leukocyte Esterase (Negative) Urine RBC (0-4) /hpf Urine WBC (0-5) /hpf Ur Epithelial Cells (0-5) /lpf Amorphous Sediment (None Prsent) Urine Bacteria (Negative) COVID-19 Eval Order SARS-CoV-2, RNA, NAAT NEGATIVE (NEGATIVE) 04/16/20 04/16/20 04/16/20 Range/Units 17:15 15:40 15:40 WBC (4.8-10.8) K/uL RBC (4.2-5.4) M/uL Hgb (12.0-16.0) g/dL Hct (37-47) % MCV (80-100) fL MCH (25-34) pg MCHC (32-36) g/dL RDW Std Deviation (36.4-46.3) fL RDW Coeff of Marya (11.5-14.5) % Plt Count (130-400) K/uL MPV (7.4-10.4) fL Immature Gran % (Auto) % Neut % (Auto) % Lymph % (Auto) % Todd % (Auto) % Eos % (Auto) % Baso % (Auto) % Neut # (Auto) (1.4-6.5) K/uL Lymph # (Auto) (1.2-3.4) K/uL Todd # (Auto) (0.11-0.59) K/uL Eos # (Auto) (0-0.5) K/uL Baso # (Auto) (0-0.2) K/uL Immature Gran # (Auto) (0.00-0.02) K/uL PT (9.0-12.0) Seconds INR (0.9-1.1) APTT (21.0-31.0) Seconds PTT Ratio Sodium (136-145) mmol/L Potassium (3.5-5.1) mmol/L Chloride (98-107) mmol/L Carbon Dioxide (21-32) mmol/L Anion Gap (3-11) BUN (7-18) mg/dl Creatinine (0.6-1.2) mg/dl Est Cr Clr Drug Dosing ml/min Est GFR ( Amer) Est GFR (Non-Af Amer) BUN/Creatinine Ratio (10-20) Glucose (70-99) mg/dl Lactate 1.5 (0.4-2.0) mmol/L Calcium (8.5-10.1) mg/dl Magnesium (1.8-2.4) mg/dl Total Bilirubin (0.2-1) mg/dl AST (15-37) U/L ALT (12-78) U/L Alkaline Phosphatase (45-117) U/L Total Protein (6.4-8.2) gm/dl Albumin (3.4-5.0) gm/dl Globulin (2.5-4.0) gm/dl Albumin/Globulin Ratio (0.9-2) Procalcitonin < 0.05 (0-0.5) ng/ml Urine Color Urine Appearance (Clear) Urine pH (4.5-7.5) Ur Specific [place] (1.000-1.030) Urine Protein (Negative) Urine Glucose (UA) (Negative) Urine Ketones (Negative) Urine Blood (Negative) Urine Nitrite (Negative) Urine Bilirubin (Negative) Urine Urobilinogen (Negative) Ur Leukocyte Esterase (Negative) Urine RBC (0-4) /hpf Urine WBC (0-5) /hpf Ur Epithelial Cells (0-5) /lpf Amorphous Sediment (None Prsent) Urine Bacteria (Negative) COVID-19 Eval Order Covid19 IDNow atMWIC SARS-CoV-2, RNA, NAAT (NEGATIVE) 04/16/20 04/16/20 04/16/20 Range/Units 15:40 15:40 15:40 WBC 9.40 (4.8-10.8) K/uL RBC 3.97 L (4.2-5.4) M/uL Hgb 12.2 (12.0-16.0) g/dL Hct 36.9 L (37-47) % MCV 92.9 (80-100) fL MCH 30.7 (25-34) pg MCHC 33.1 (32-36) g/dL RDW Std Deviation 44.7 (36.4-46.3) fL RDW Coeff of Marya 13.0 (11.5-14.5) % Plt Count 311 (130-400) K/uL MPV 9.8 (7.4-10.4) fL Immature Gran % (Auto) 0.3 % Neut % (Auto) 79.4 % Lymph % (Auto) 11.1 % Todd % (Auto) 8.3 % Eos % (Auto) 0.7 % Baso % (Auto) 0.2 % Neut # (Auto) 7.46 H (1.4-6.5) K/uL Lymph # (Auto) 1.04 L (1.2-3.4) K/uL Todd # (Auto) 0.78 H (0.11-0.59) K/uL Eos # (Auto) 0.07 (0-0.5) K/uL Baso # (Auto) 0.02 (0-0.2) K/uL Immature Gran # (Auto) 0.03 H (0.00-0.02) K/uL PT 11.0 (9.0-12.0) Seconds INR 1.0 (0.9-1.1) APTT 24.9 (21.0-31.0) Seconds PTT Ratio 0.9 Sodium 139 (136-145) mmol/L Potassium 3.7 (3.5-5.1) mmol/L Chloride 103 (98-107) mmol/L Carbon Dioxide 32 (21-32) mmol/L Anion Gap 4.0 (3-11) BUN 12 (7-18) mg/dl Creatinine 0.75 (0.6-1.2) mg/dl Est Cr Clr Drug Dosing 87.4 ml/min Est GFR ( Amer) 96.9 Est GFR (Non-Af Amer) 83.6 BUN/Creatinine Ratio 16.3 (10-20) Glucose 96 (70-99) mg/dl Lactate (0.4-2.0) mmol/L Calcium 8.4 L (8.5-10.1) mg/dl Magnesium 2.6 H (1.8-2.4) mg/dl Total Bilirubin 0.8 (0.2-1) mg/dl AST 23 (15-37) U/L ALT 30 (12-78) U/L Alkaline Phosphatase 120 H (45-117) U/L Total Protein 7.6 (6.4-8.2) gm/dl Albumin 2.3 L (3.4-5.0) gm/dl Globulin 5.3 H (2.5-4.0) gm/dl Albumin/Globulin Ratio 0.4 L (0.9-2) Procalcitonin (0-0.5) ng/ml Urine Color Urine Appearance (Clear) Urine pH (4.5-7.5) Ur Specific [place] (1.000-1.030) Urine Protein (Negative) Urine Glucose (UA) (Negative) Urine Ketones (Negative) Urine Blood (Negative) Urine Nitrite (Negative) Urine Bilirubin (Negative) Urine Urobilinogen (Negative) Ur Leukocyte Esterase (Negative) Urine RBC (0-4) /hpf Urine WBC (0-5) /hpf Ur Epithelial Cells (0-5) /lpf Amorphous Sediment (None Prsent) Urine Bacteria (Negative) COVID-19 Eval Order SARS-CoV-2, RNA, NAAT (NEGATIVE) 04/16/20 Range/Units 13:47 WBC (4.8-10.8) K/uL RBC (4.2-5.4) M/uL Hgb (12.0-16.0) g/dL Hct (37-47) % MCV (80-100) fL MCH (25-34) pg MCHC (32-36) g/dL RDW Std Deviation (36.4-46.3) fL RDW Coeff of Marya (11.5-14.5) % Plt Count (130-400) K/uL MPV (7.4-10.4) fL Immature Gran % (Auto) % Neut % (Auto) % Lymph % (Auto) % Todd % (Auto) % Eos % (Auto) % Baso % (Auto) % Neut # (Auto) (1.4-6.5) K/uL Lymph # (Auto) (1.2-3.4) K/uL Todd # (Auto) (0.11-0.59) K/uL Eos # (Auto) (0-0.5) K/uL Baso # (Auto) (0-0.2) K/uL Immature Gran # (Auto) (0.00-0.02) K/uL PT (9.0-12.0) Seconds INR (0.9-1.1) APTT (21.0-31.0) Seconds PTT Ratio Sodium (136-145) mmol/L Potassium (3.5-5.1) mmol/L Chloride (98-107) mmol/L Carbon Dioxide (21-32) mmol/L Anion Gap (3-11) BUN (7-18) mg/dl Creatinine (0.6-1.2) mg/dl Est Cr Clr Drug Dosing ml/min Est GFR ( Amer) Est GFR (Non-Af Amer) BUN/Creatinine Ratio (10-20) Glucose (70-99) mg/dl Lactate (0.4-2.0) mmol/L Calcium (8.5-10.1) mg/dl Magnesium (1.8-2.4) mg/dl Total Bilirubin (0.2-1) mg/dl AST (15-37) U/L ALT (12-78) U/L Alkaline Phosphatase (45-117) U/L Total Protein (6.4-8.2) gm/dl Albumin (3.4-5.0) gm/dl Globulin (2.5-4.0) gm/dl Albumin/Globulin Ratio (0.9-2) Procalcitonin (0-0.5) ng/ml Urine Color Tana Urine Appearance Cloudy A (Clear) Urine pH 6.0 (4.5-7.5) Ur Specific [place] 1.025 (1.000-1.030) Urine Protein 2+ H (Negative) Urine Glucose (UA) Negative (Negative) Urine Ketones Trace H (Negative) Urine Blood 3+ H (Negative) Urine Nitrite Negative (Negative) Urine Bilirubin Negative (Negative) Urine Urobilinogen Positive H (Negative) Ur Leukocyte Esterase Negative (Negative) Urine RBC 10-30 H (0-4) /hpf Urine WBC 10-30 H (0-5) /hpf Ur Epithelial Cells >30 H (0-5) /lpf Amorphous Sediment Present A (None Prsent) Urine Bacteria 1+ H (Negative) COVID-19 Eval Order SARS-CoV-2, RNA, NAAT (NEGATIVE) PG Care Time/CCT Total # of Minutes Spent Total Time Spent with Patient: Total time spent is greater than 50% in coordination of care (as documented) at patient's floor/unit and/or counseling patient: Coding Level of Care Code 07030 Subseq Hosp Care Lvl 2 Diagnoses Breast abscess N61.1 S/P lumpectomy, left breast Z98.890 Mucinous carcinoma of left breast C50.912 Pulmonary nodule R91.1
--- NOTE | 2020-04-17 11:53 | Billing Data ---
Date of Service April 16, 2020 Coding Level of Care Code 28016 Initial Inpt Care Lvl 2
--- NOTE | 2020-04-17 13:22 | Surgery Progress Note ---
Date of Service F/U S/P I/D left breast abscess, POD 1 pt feels better, some drainage from incision site, pt denies fever, no chills, gram stain negative, April 17, 2020 Assessment & Plan (1) Breast abscess: pt is a 64 year-old female who presents to Er with one week history left breast infection with drainage, fever chills, U/S study- left breast abscess IMP: left breast abscess, Plan, I recommend to do I/D left breast abscess, D/W benefits, risks and alternatives of the surgery, the risks - infection, bleeding, unhealing wound, sepsis, , pt understood,, she agrees with the surgery, I answered all questions, pre-op antibiotic, 04/17/2020 1:25PM S/P I/D left breast abscess, doing better, continue iv antibiotic, wound care nurse consult possible discharge tomorrow, pt will F/U [facility] wound care center for dressing change Admission and Anticipated Discharge Date Admission Date: April 16, 2020 Review of Systems Constitutional: as per Subjective / HPI Eyes: as per Subjective / HPI Ear, Nose, Mouth, Throat: as per Subjective / HPI Respiratory: as per Subjective / HPI lung nodule Cardiovascular: as per Subjective / HPI Additional Comments: PVD Gastrointestinal: as per Subjective / HPI abdominal hernia Genitourinary: as per Subjective / HPI left breast cancer with surgery, 01/02 Musculoskeletal: as per Subjective / HPI Integumentary: as per Subjective / HPI Neurologic: as per Subjective / HPI Psychiatric: as per Subjective / HPI Endocrine: as per Subjective / HPI hypothyroidism Hematologic / Lymphatic: as per Subjective / HPI Allergy / Immunological: as per Subjective / HPI Physical Exam Constitutional: WD/WN, vitals as above well developed, well nourished and + acute distress Eyes: PERRL, conjunctivae normal, anicteric sclerae ENMT: external ear and nose normal, oropharynx normal Neck: trachea midline, no thyromegaly Respiratory: normal respiratory effort, lungs clear to auscultation normal respiratory effort Cardiovascular: RRR, no murmur, no edema Rate/Rhythm: regular rate and regular rhythm Chest (Breasts): Additional Comments: the dressing intact, mild drainage from incision site, no mild redness around wound, Gastrointestinal (Abdomen): normal bowel sounds, soft, nontender, no hepatosplenomegaly Musculoskeletal: no cyanosis or clubbing, extremities motor strength 5/5 Neurologic: awake Psychiatric: Orientation: alert and oriented x 3 Results & Data ([facility]) Vital Signs (Past 12 Hours) Vital Signs Temp Pulse Resp BP Pulse Ox 04/17/20 08:01 37.0 C 75 16 108/69 94 04/17/20 01:55 37.1 C 88 15 118/55 L 93 Laboratory Results Abnormal lab results 04/16/20 04/16/20 04/16/20 Range/Units 13:47 15:40 15:40 RBC 3.97 L (4.2-5.4) M/uL Hgb (12.0-16.0) g/dL Hct 36.9 L (37-47) % MCHC (32-36) g/dL Neut # (Auto) 7.46 H (1.4-6.5) K/uL Lymph # (Auto) 1.04 L (1.2-3.4) K/uL Hall # (Auto) 0.78 H (0.11-0.59) K/uL Immature Gran # (Auto) 0.03 H (0.00-0.02) K/uL Glucose (70-99) mg/dl Calcium 8.4 L (8.5-10.1) mg/dl Magnesium 2.6 H (1.8-2.4) mg/dl Alkaline Phosphatase 120 H (45-117) U/L Albumin 2.3 L (3.4-5.0) gm/dl Globulin 5.3 H (2.5-4.0) gm/dl Albumin/Globulin Ratio 0.4 L (0.9-2) Urine Appearance Cloudy A (Clear) Urine Protein 2+ H (Negative) Urine Ketones Trace H (Negative) Urine Blood 3+ H (Negative) Urine Urobilinogen Positive H (Negative) Urine RBC 10-30 H (0-4) /hpf Urine WBC 10-30 H (0-5) /hpf Ur Epithelial Cells >30 H (0-5) /lpf Amorphous Sediment Present A (None Prsent) Urine Bacteria 1+ H (Negative) 04/17/20 04/17/20 Range/Units 06:00 06:00 RBC 3.60 L (4.2-5.4) M/uL Hgb 10.7 L (12.0-16.0) g/dL Hct 33.6 L (37-47) % MCHC 31.8 L (32-36) g/dL Neut # (Auto) (1.4-6.5) K/uL Lymph # (Auto) 1.05 L (1.2-3.4) K/uL Hall # (Auto) 0.60 H (0.11-0.59) K/uL Immature Gran # (Auto) (0.00-0.02) K/uL Glucose 108 H (70-99) mg/dl Calcium 7.8 L (8.5-10.1) mg/dl Magnesium (1.8-2.4) mg/dl Alkaline Phosphatase (45-117) U/L Albumin (3.4-5.0) gm/dl Globulin (2.5-4.0) gm/dl Albumin/Globulin Ratio (0.9-2) Urine Appearance (Clear) Urine Protein (Negative) Urine Ketones (Negative) Urine Blood (Negative) Urine Urobilinogen (Negative) Urine RBC (0-4) /hpf Urine WBC (0-5) /hpf Ur Epithelial Cells (0-5) /lpf Amorphous Sediment (None Prsent) Urine Bacteria (Negative)
[2020-04-17] MEDS ORDERED: OPTIRAY 320 125ml IV ONE (15:17)
--- NOTE | 2020-04-17 15:48 | CT Scan Report ---
CHEST CTA for PULMONARY ARTERIES CT DOSE: 997.67 mGy.cm HISTORY: Shortness of breath. TECHNIQUE: Multiaxial CT images of the chest were performed following the intravenous administration of contrast to evaluate the pulmonary arteries. Maximal intensity projection images were also obtaine d. A dose lowering technique was utilized adhering to the principles of ALARA. COMPARISON STUDY: Chest CT 04/19/2019. FINDINGS: Normal caliber thoracic aorta with no evidence for dissection. The heart is top normal in s ize. No pleural or pericardial effusions. Limited views of the upper abdomen demonstrate a normal danilo er and spleen. The visualized adrenal glands unremarkable. There is again noted a moderate hiatus her stephen containing the proximal half the stomach. Postoperative changes again noted within the stomach montiel ggesting prior gastric bypass. The esophagus is normal and course and caliber. No mediastinal or dyllan r lymphadenopathy. Partially visualized large skin defect within the left lateral breast which measur es 7.4 cm. There is also skin thickening and subcutaneous infiltration within the left lateral breast which is also partially visualized. This favors posttreatment/postoperative change given the patient 's history of left breast cancer. Stable 9 mm hypodense nodule abutting the anterior surface of the l iver on image 65. This may represent a small exophytic cyst given the stability. No axillary lymphade nopathy. No suspicious lytic are blastic osseous lesions. No pneumothorax. Mild respiratory motion ar tifact. The central airways are patent. No focal lung consolidations to suggest pneumonia. A few stab le subcentimeter nodules within the right lung. Dominant 5 mm subpleural nodule along the right major fissure is seen on image 150. No new or suspicious pulmonary nodules identified. Normal caliber thor acic aorta with no evidence for dissection. Nondiagnostic evaluation of the majority of the bilateral lower lobe segmental and subsegmental pulmonary arteries due to the respiratory motion artifact. Oth erwise, no filling defects within the remaining pulmonary arteries to suggest pulmonary embolus. IMPRESSION: 1. No evidence for pulmonary embolus with limitations as described above. 2. Partially visualized large skin defect within the left lateral breast which measures 7.4 cm. There is also skin thickening and subcutaneous infiltration within the left lateral breast which is also p artially visualized. This favors posttreatment/postoperative change given the patient's history of le ft breast cancer. 3. Stable subcentimeter nodules within the right lung with the dominant nodule measuring 5 mm. No new pulmonary nodules identified. 4. Additional findings as described above. ACT 112: Negative or not required by law. Electronically signed by: Harpreet Kiran M.D. 04/17/2020 3:46 PM
[2020-04-17] MEDS: AMPICILLIN/SULBACTAM SOD 3,000 MG in 0.9 % SODIUM CHLORIDE 100 ML IV SCH (18:05)
[2020-04-18] MEDS: AMPICILLIN/SULBACTAM SOD 3,000 MG in 0.9 % SODIUM CHLORIDE 100 ML IV SCH ×4 (00:06→18:18)
[2020-04-18] MEDS ORDERED: CALCIUM CARBONATE 500 MG CHEWABLE TAB PO PRN (00:27)
[2020-04-18 05:42] LABS: Hematocrit (blood only) 32.2 % (37-47); Hemoglobin 10.5 g/dL (12.0-16.0); Mean Corpuscular Hgb Conc 32.6 g/dL (32-36); Mean Platelet Volume 9.2 fL (7.4-10.4); Platelet Count 290 K/uL (130-400); RDW Standard Deviation 44.1 fL (36.4-46.3); White Blood Count 7.01 K/uL (4.8-10.8)
[2020-04-18] MEDS: VANCOMYCIN HCL 1,500 MG in SODIUM CHLORIDE 0.9% 500 ML IV SCH ×2 (05:49→19:20)
[2020-04-18 06:08] LABS: BUN Creatinine Ratio 12.6 (10-20); Creatinine Clr Calc Pharmacy 97.7 ml/min; Est GFR (African American) 105.4; Est GFR (Non-African American) 90.9; Potassium 3.4 mmol/L (3.5-5.1)
[2020-04-18 06:11] LABS: Albumin Globulin Ratio 0.5 (0.9-2); Bilirubin,Total 0.5 mg/dl (0.2-1); Globulin 4.4 gm/dl (2.5-4.0); Total Protein 6.4 gm/dl (6.4-8.2)
[2020-04-18] MEDS ORDERED: POTASSIUM CHLORIDE CRTAB 20 MEQ TABCR PO STA (08:59)
[2020-04-18] MEDS: ENOXAPARIN INJ 40 MG/0.4 ML SYR SQ SCH (09:00)
[2020-04-18] MEDS: MULTIVITAMIN TAB PO SCH (09:01)
[2020-04-18] MEDS: CALCIUM 600MG + VIT D 400 IU TAB PO SCH (09:02)
[2020-04-18] MEDS: CEROVITE ADV FORMULA TAB PO SCH (09:03)
--- NOTE | 2020-04-18 10:20 | Pharmacy Report ---
Pharmacy Abx Dose Short Note - Date of Service April 18, 2020 - Assessment & Plan Assessment * 64 year old F receiving Unasyn and vancomycin for treatment of breast abscess s/p I&D on 04/16 * Breast abscess cultures with two Staph species isolated. Current regimen is appropriate for now * Renal function stable Vancomycin * Goal vancomycin trough 15-20 mcg/dL for empiric MRSA coverage, and unknown vancomycin EVELYN at this time. May be able to change to 10-15 mcg/mL if the organism isolated is MRSA and the vancomycin EVELYN is <= 1 * Trough of 15.8 mcg/mL is therapeutic - continue current vancomycin dose * Patient is at risk for accumulation 2nd BMI of 47.5 kg/m2 - will re-order a trough level sooner than usual Plan * Continue vancomycin 1500 mg IV q12h * Repeat trough 04/20 @ 0530 Pharmacy will continue to follow and will adjust dose/frequency as necessary. Thank you.
--- NOTE | 2020-04-18 11:45 | Surgery Progress Note ---
Date of Service doing fine, feels better, April 18, 2020 Assessment & Plan (1) Breast abscess: pt is a 64 year-old female who presents to Er with one week history left breast infection with drainage, fever chills, U/S study- left breast abscess IMP: left breast abscess, Plan, I recommend to do I/D left breast abscess, D/W benefits, risks and alternatives of the surgery, the risks - infection, bleeding, unhealing wound, sepsis, , pt understood,, she agrees with the surgery, I answered all questions, pre-op antibiotic, 04/17/2020 1:25PM S/P I/D left breast abscess, doing better, continue iv antibiotic, wound care nurse consult possible discharge tomorrow, pt will F/U [facility] wound care center for dressing change 04/18/2020 11:43AM pt can be discharged today or tomorrow, F/U [facility] wound care center Tuesday, F/U me 2 weeks, or prn, sign off today, please call with questions, thanks, Admission and Anticipated Discharge Date Admission Date: April 16, 2020 Subjective Patient evaluated this morning. Had rude experience with IV and CT scan which was not done due to not having 18G. Discussed with nursing and will obtain and call CT. Patient's pain drastically improved with drainage. Previously drained for 500cc on the same side in the past. Had been draining for a while. Patient is s/p lumpectomy. Denies fever, chills, chest pain, shortness of breath, nausea or vomiting at this time. Plans for awaiting cultures and possible d/c in the next day or two. Questions/concerns addressed at this time. Review of Systems Constitutional: as per Subjective / HPI Eyes: as per Subjective / HPI Ear, Nose, Mouth, Throat: as per Subjective / HPI Respiratory: as per Subjective / HPI lung nodule Cardiovascular: as per Subjective / HPI Additional Comments: PVD Gastrointestinal: as per Subjective / HPI abdominal hernia Genitourinary: as per Subjective / HPI left breast cancer with surgery, 01/02 Musculoskeletal: as per Subjective / HPI Integumentary: as per Subjective / HPI Neurologic: as per Subjective / HPI Psychiatric: as per Subjective / HPI Endocrine: as per Subjective / HPI hypothyroidism Hematologic / Lymphatic: as per Subjective / HPI Allergy / Immunological: as per Subjective / HPI Physical Exam Constitutional: WD/WN, vitals as above well developed, well nourished and + acute distress Eyes: PERRL, conjunctivae normal, anicteric sclerae ENMT: external ear and nose normal, oropharynx normal Neck: trachea midline, no thyromegaly Respiratory: normal respiratory effort, lungs clear to auscultation normal respiratory effort Cardiovascular: RRR, no murmur, no edema Rate/Rhythm: regular rate and regular rhythm Chest (Breasts): Additional Comments: the packing has been changed, the wound is dry, no redness, Gastrointestinal (Abdomen): normal bowel sounds, soft, nontender, no hepatosplenomegaly Musculoskeletal: no cyanosis or clubbing, extremities motor strength 5/5 Neurologic: awake Psychiatric: Orientation: alert and oriented x 3 Results & Data ([facility]) Vital Signs (Past 12 Hours) Vital Signs Temp Pulse Resp BP Pulse Ox 04/18/20 07:19 37.0 C 79 18 126/75 96
--- NOTE | 2020-04-18 15:38 | Hospitalist Progress Note ---
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 Garcia) completed last month presents with concerns of left breast pain, fevers, chills found to have abscess on ultrasound. * Ultrasound showing large pocket of fluid with septations likely consistent with abscess * IV vancomycin and Zosyn on admission * Blood cultures NGTD after 48 hours * Pain management -- had only been ordered IV morphine/PO tylenol * --> will add PO oxycodone for oral option in anticipation for d/c in AM * General surgery consulted * POD#2 s/p LEFT breast I&D * Switch abx to Unasyn/Vanco to prevent toxicity on 04/17 (on day 2 of therapy) * Culture from I&D with point-point growth -- today with staphylococcus species x 2 --> follow cx/s * Wound RN consulted -- seen 04/18 and will need follow up with wound center * Transition to PO abx in AM with possible discharge if pain controlled and patient stable for d/c (2) S/P lumpectomy, left breast: * Left Breast Lumpectomy with Localization, Juanita Putty Worker( 01-03-20) vs. Wire, and Left Axillary [place] Lymph Node Biopsy(Left) - Luis Quintero DO, FACS 01/09/20 * Follows locally (3) Mucinous carcinoma of left breast: * s/p lumpectomy (4) Hypokalemia: * K 3.4 -- likely from lack of PO intake on admission and through yesterday (improved today) * Ordered 40meq PO x 1 * BMP in AM (5) Pulmonary nodule: * Chest CT from April 2019 showing a few likely benign solid pulmonary nodules noted throughout the right lung measuring up to 5 mm * According to Fleischner criteria recommendations patient will be due for follow-up CT at 12 months which would be around this time. Given patient's somewhat shortness of breath moving around in the bed we will order CTA to additionally rule out PEs as well. * CTA negative for PE * Stable 5mm nodule Dispo: continue IV abx, monitor culture possible d/c on oral abx tomorrow pending cultures Admission and Anticipated Discharge Date Admission Date: April 16, 2020 Subjective Patient evaluated this morning. Still with some pain but nothing like prior to I&D. Has some wetness to her sheets reported and she felt dressing was saturated. Confirmed that dressing will need to be changed as she has increased drainage noted. No fever, chills, chest pain (outside of pain to L breast), shortness of breath, abdominal pain, nausea or vomiting. Eating/drinking without difficulty. +Flatus but now bowel movement yet. Awaiting director orange and will need follow up with wound care. Discussed staph species in wound culture and will continue IV antibiotics for now and transition to oral agents tomorrow with possible discharge. Discussed CT negative for PE. Will need follow up with wound care on tuesday and follow up with Dr. Bennett in 2 weeks, or sooner if needed. #[phone] Review of Systems Review of Systems: All systems reviewed & are unremarkable except as noted in HPI & below Physical Exam Constitutional: WD/WN, vitals as above + obese; no acute distress Eyes: + anicteric sclerae and PERRL ENMT: Ears: no hearing impairment Neck: trachea midline Respiratory: normal respiratory effort, lungs clear to auscultation Cardiovascular: RRR, no murmur, no edema Chest (Breasts): Additional Comments: Left breast with ~10 x 15 cm area of erythema with approx 3-4cm incision with bloody packing bloody and purulent drainage noted tender to touch, but less than yesterday dressing and bedding saturated with serosanguineous material -- wound RN to see this afternoon Gastrointestinal (Abdomen): normal bowel sounds, soft, nontender, no hepatosplenomegaly Musculoskeletal: no cyanosis or clubbing, extremities motor strength 5/5 Skin: warm, dry Neurologic: PERRL, EOMI, accommodation nl, no face palsy, no dysarthria Psychiatric: A+Ox3, euthymic affect Lymphatic: no cervical or axillary lymphadenopathy Results & Data Results & Data ([facility]) Vital Signs (Past 12 Hours) Vital Signs Temp Pulse Resp BP Pulse Ox 04/18/20 15:17 37.2 C 78 16 137/73 96 04/18/20 07:19 37.0 C 79 18 126/75 96 Laboratory Results 04/18/20 04/18/20 04/18/20 Range/Units 05:25 05:25 05:25 WBC 7.01 (4.8-10.8) K/uL RBC 3.50 L (4.2-5.4) M/uL Hgb 10.5 L (12.0-16.0) g/dL Hct 32.2 L (37-47) % MCV 92.0 (80-100) fL MCH 30.0 (25-34) pg MCHC 32.6 (32-36) g/dL RDW Std Deviation 44.1 (36.4-46.3) fL RDW Coeff of Marya 13.0 (11.5-14.5) % Plt Count 290 (130-400) K/uL MPV 9.2 (7.4-10.4) fL Sodium 140 (136-145) mmol/L Potassium 3.4 L (3.5-5.1) mmol/L Chloride 106 (98-107) mmol/L Carbon Dioxide 30 (21-32) mmol/L Anion Gap 4.0 (3-11) BUN 9 (7-18) mg/dl Creatinine 0.70 (0.6-1.2) mg/dl Est Cr Clr Drug Dosing 97.7 ml/min Est GFR ( Amer) 105.4 Est GFR (Non-Af Amer) 90.9 BUN/Creatinine Ratio 12.6 (10-20) Glucose 104 H (70-99) mg/dl Calcium 8.0 L (8.5-10.1) mg/dl Total Bilirubin 0.5 (0.2-1) mg/dl AST 13 L (15-37) U/L ALT 22 (12-78) U/L Alkaline Phosphatase 95 (45-117) U/L Total Protein 6.4 (6.4-8.2) gm/dl Albumin 2.0 L (3.4-5.0) gm/dl Globulin 4.4 H (2.5-4.0) gm/dl Albumin/Globulin Ratio 0.5 L (0.9-2) Vancomycin Trough 15.8 (See Comment) mcg/ml Ordered: Aer/Sirena Cult/Sm Procedure Result Verified Site Gram Stain Final 04/17/20 Gram Stain Result Many WBCs Seen No Organisms Seen Aero/Sirena Cult Preliminary 04/18/20-855 Organism 1 Staphylococcus species Quantity Rare Sens Sensitivities to Follow Organism 2 Staphylococcus species#2 Quantity Few Sens Sensitivities Dependent on Further Identification Diagnostic Findings IMPRESSION: 1. No evidence for pulmonary embolus with limitations as described above. 2. Partially visualized large skin defect within the left lateral breast which measures 7.4 cm. There is also skin thickening and subcutaneous infiltration within the left lateral breast which is also partially visualized. This favors posttreatment/postoperative change given the patient's history of left breast cancer. 3. Stable subcentimeter nodules within the right lung with the dominant nodule measuring 5 mm. No new pulmonary nodules identified. 4. Additional findings as described above. PG Care Time/CCT Total # of Minutes Spent Total Time Spent with Patient: Total time spent is greater than 50% in coordination of care (as documented) at patient's floor/unit and/or counseling patient: Coding Level of Care Code 86335 Subseq Hosp Care Lvl 2 Diagnoses Breast abscess N61.1 S/P lumpectomy, left breast Z98.890 Mucinous carcinoma of left breast C50.912 Hypokalemia E87.6 Pulmonary nodule R91.1
[2020-04-18] MEDS: oxyCODONE HCL IR 5 MG TAB (IMMEDIATE RELEASE) PO PRN (22:23)
[2020-04-19] MEDS: AMPICILLIN/SULBACTAM SOD 3,000 MG in 0.9 % SODIUM CHLORIDE 100 ML IV SCH ×5 (00:08→23:18)
[2020-04-19 04:53] LABS: Basophils # (auto) 0.03 K/uL (0-0.2); Basophils % (auto) 0.4 %; Eosinophils # (auto) 0.29 K/uL (0-0.5); Eosinophils % (auto) 4.1 %; Hematocrit (blood only) 31.2 % (37-47); Hemoglobin 10.2 g/dL (12.0-16.0); Immature Granulocytes # (auto) 0.01 K/uL (0.00-0.02); Immature Granulocytes % (auto) 0.1 %; Lymphocytes # (auto) 0.98 K/uL (1.2-3.4); Lymphocytes % (auto) 13.7 %; Mean Corpuscular Hemoglobin 30.1 pg (25-34); Mean Corpuscular Hgb Conc 32.7 g/dL (32-36); Mean Platelet Volume 9.4 fL (7.4-10.4); Monocytes # (auto) 0.52 K/uL (0.11-0.59); Monocytes % (auto) 7.3 %; Neutrophils # (auto) 5.31 K/uL (1.4-6.5); Neutrophils % (auto) 74.4 %; Platelet Count 301 K/uL (130-400); RDW Coefficient of Variation 12.9 % (11.5-14.5); RDW Standard Deviation 43.5 fL (36.4-46.3); Red Blood Count 3.39 M/uL (4.2-5.4); White Blood Count 7.14 K/uL (4.8-10.8)
[2020-04-19] MEDS ORDERED: MoRPHine SULFATE 2 MG/ML CARP ONE (10:46)
[2020-04-19 17:15] LABS: BUN Creatinine Ratio 10.7 (10-20); Calcium 8.2 mg/dl (8.5-10.1); Creatinine Clr Calc Pharmacy 99.1 ml/min; Est GFR (African American) 105.9; Est GFR (Non-African American) 91.4; Potassium 3.5 mmol/L (3.5-5.1)
--- NOTE | 2020-04-19 18:11 | Hospitalist Progress Note ---
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 Garcia) completed last month presents with concerns of left breast pain, fevers, chills found to have abscess on ultrasound. * Ultrasound showing large pocket of fluid with septations likely consistent with abscess * IV vancomycin and Zosyn on admission * Blood cultures NGTD after 48 hours * Pain management -- had only been ordered IV morphine/PO tylenol * --> will add PO oxycodone for oral option in anticipation for d/c in AM * General surgery consulted * POD#3 s/p LEFT breast I&D * Switch abx to Unasyn/Vanco to prevent toxicity on 04/17 (on day 3 of therapy) * Culture from I&D with point-point growth -- today with staphylococcus species x 2 --> follow cx/s although reported pansensitive condominium association manager with micro * Wound RN consulted -- seen 04/18 and will need follow up with wound center tuesday * Transition to PO abx in AM with possible discharge if pain controlled and patient stable for d/c (2) S/P lumpectomy, left breast: * Left Breast Lumpectomy with Localization, Juanita Cell Lead( 01-03-20) vs. Wire, and Left Axillary [place] Lymph Node Biopsy(Left) - Luis Quintero, , FACS 01/09/20 * Follows locally (3) Mucinous carcinoma of left breast: * s/p lumpectomy (4) Hypokalemia: * K 3.4 -- likely from lack of PO intake on admission and through yesterday (improved today) * Ordered 40meq PO x 1 * K 3.5 (5) Pulmonary nodule: * Chest CT from April 2019 showing a few likely benign solid pulmonary nodules noted throughout the right lung measuring up to 5 mm * According to Fleischner criteria recommendations patient will be due for follow-up CT at 12 months which would be around this time. Given patient's somewhat shortness of breath moving around in the bed we will order CTA to additionally rule out PEs as well. * CTA negative for PE * Stable 5mm nodule Dispo: continue IV abx, monitor culture possible d/c on oral abx with wound center follow up on tuesday CM following Admission and Anticipated Discharge Date Admission Date: April 16, 2020 Subjective Patient evaluated this morning. Needed dose of morphine for dressing change yesterday and requested additional dose today for dressing change as dressing again saturated. Will order 1x dose for today but discussed trying PO option for tomorrow in anticipation for discharge. Cultures with staph, pansensitive per call with micro. Will transition to PO tomorrow morning. No fever, chill, chest pain, shortness of breath, abdominal pain, n/v/d. Did have good bowel movement today. Would feel more comfortable staying overnight given continued drainage and erythema and will plan for d/c tomorrow with pain control, PO abx and follow up with wound center on tuesday. Review of Systems Review of Systems: All systems reviewed & are unremarkable except as noted in HPI & below Physical Exam Constitutional: WD/WN, vitals as above + obese; no acute distress Eyes: + anicteric sclerae and PERRL ENMT: Ears: no hearing impairment Neck: trachea midline, no thyromegaly trachea midline Respiratory: normal respiratory effort, lungs clear to auscultation Cardiovascular: RRR, no murmur, no edema Chest (Breasts): Additional Comments: Left breast ~10 x 15 cm area of erythema with approx 3-4cm incision with bloody packing bloody and purulent drainage noted to dressing, peeling off tender to touch, but less than yesterday Gastrointestinal (Abdomen): normal bowel sounds, soft, nontender, no hepatosplenomegaly Musculoskeletal: no cyanosis or clubbing, extremities motor strength 5/5 Neurologic: PERRL, EOMI, accommodation nl, no face palsy, no dysarthria Psychiatric: A+Ox3, euthymic affect Lymphatic: no cervical or axillary lymphadenopathy PG Care Time/CCT Total # of Minutes Spent Total Time Spent with Patient: Total time spent is greater than 50% in coordination of care (as documented) at patient's floor/unit and/or counseling patient: Coding Level of Care Code 72874 Subseq Hosp Care Lvl 2 Diagnoses Breast abscess N61.1 S/P lumpectomy, left breast Z98.890 Mucinous carcinoma of left breast C50.912 Hypokalemia E87.6 Pulmonary nodule R91.1
[2020-04-19] MEDS: ENOXAPARIN INJ 40 MG/0.4 ML SYR SQ SCH (18:49)
[2020-04-19] MEDS: CALCIUM 600MG + VIT D 400 IU TAB PO SCH (18:49)
[2020-04-19] MEDS: VANCOMYCIN HCL 1,500 MG in SODIUM CHLORIDE 0.9% 500 ML IV SCH ×2 (18:49→18:51)
[2020-04-19] MEDS: CEROVITE ADV FORMULA TAB PO SCH (18:50)
[2020-04-19] MEDS: MULTIVITAMIN TAB PO SCH (18:50)
[2020-04-20] MEDS: AMPICILLIN/SULBACTAM SOD 3,000 MG in 0.9 % SODIUM CHLORIDE 100 ML IV SCH ×4 (05:17→23:41)
[2020-04-20] MEDS ORDERED: VANCOMYCIN TROUGH ONE (05:30)
[2020-04-20 05:40] LABS: Hematocrit (blood only) 32.7 % (37-47); Hemoglobin 10.5 g/dL (12.0-16.0); Mean Corpuscular Hemoglobin 29.7 pg (25-34); Mean Corpuscular Hgb Conc 32.1 g/dL (32-36); Mean Corpuscular Volume 92.4 fL (80-100); Mean Platelet Volume 9.2 fL (7.4-10.4); Platelet Count 339 K/uL (130-400); RDW Coefficient of Variation 12.9 % (11.5-14.5); RDW Standard Deviation 43.7 fL (36.4-46.3); Red Blood Count 3.54 M/uL (4.2-5.4); White Blood Count 6.78 K/uL (4.8-10.8)
[2020-04-20] MEDS: VANCOMYCIN HCL 1,500 MG in SODIUM CHLORIDE 0.9% 500 ML IV SCH ×3 (06:10→20:26)
[2020-04-20 06:23] LABS: BUN Creatinine Ratio 10.1 (10-20); Calcium 8.2 mg/dl (8.5-10.1); Est GFR (African American) 106.9; Est GFR (Non-African American) 92.2; Potassium 3.4 mmol/L (3.5-5.1)
[2020-04-20] MEDS: CALCIUM 600MG + VIT D 400 IU TAB PO SCH (08:14)
[2020-04-20] MEDS: ENOXAPARIN INJ 40 MG/0.4 ML SYR SQ SCH (08:14)
[2020-04-20] MEDS: MULTIVITAMIN TAB PO SCH (08:15)
[2020-04-20] MEDS: CEROVITE ADV FORMULA TAB PO SCH (08:15)
--- NOTE | 2020-04-20 09:23 | Hospitalist Progress Note ---
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 Garcia) completed last month presents with concerns of left breast pain, fevers, chills found to have abscess on ultrasound. * OR I&D 04/16 * IV vancomycin and Zosyn on admission, Switch abx to Unasyn/Vanco to prevent toxicity on 04/17 (on day 3 of therapy) * Blood cultures NGTD after 48 hours * Culture from I&D with point-point growth -- today with staphylococcus species x 2 --MSSa * Wound RN consulted -- seen 04/18 and will need follow up with wound center after discharge * Transition to PO abx at the time of discharge will put on Keflex given the MSSA sensitivities * Patient is requiring pain medication prior to dressing changes. (2) S/P lumpectomy, left breast: * Left Breast Lumpectomy with Localization, Juanita Pc Maintenance Technician( 01-03-20) vs. Wire, and Left Axillary [place] Lymph Node Biopsy(Left) - Luis Quintero DO, FACS 01/09/20 * Follows locally (3) Mucinous carcinoma of left breast: * s/p lumpectomy (4) Hypokalemia: * replete (5) Pulmonary nodule: * Chest CT from April 2019 showing a few likely benign solid pulmonary nodules noted throughout the right lung measuring up to 5 mm * According to Fleischner criteria recommendations patient will be due for follow-up CT at 12 months which would be around this time. Given patient's somewhat shortness of breath moving around in the bed we will order CTA to additionally rule out PEs as well. * CTA negative for PE * Stable 5mm nodule Dispo: continue IV abx, monitor culture possible d/c on oral abx with wound center follow up on tuesday CM following Admission and Anticipated Discharge Date Admission Date: April 16, 2020 Subjective Patient feels some pain in her breast site. She feels that she is not set up to go home until Tuesday given some of the care issues she has with her packing of her wound etc. She has pain with wound care changes and she is going to have another wound care change today on 04/20 Review of Systems Review of Systems: Mild distress and fatigue no headache, blurry or double vision no speech or swallowing issues She does have chest wall pain associated with the abscess and with dressing changes of the abscess no shortness of breath, cough or wheezes no abdominal pain, nausea or vomiting, diarrhea or constipation no dysuria, hematuria or frequency no focal joint pain or swelling no back pain, CVA tenderness or radicular pain no bruising, bleeding or rashes no focal signs of weakness or numbness or altered sensation no complaints of anxiety or depression.. Physical Exam Physical Exam: The patient appeared well Vital signs as documented. Lungs are clear to auscultation and appear unlabored Cardiac exam, Rhythm is regular.. No murmurs, rubs or gallops. Her chest wall is a dressing in place Abdominal exam reveals normal bowel sounds, soft non tender, no masses Extremities are nonedematous and both pedal pulses are normal. Neurologic exam is alert and oriented, no focal loss of strength or sensation Psychologically is with concerns for anxiety Results & Data Results & Data ([facility]) Vital Signs (Past 12 Hours) Vital Signs Temp Pulse Pulse Resp BP Pulse Ox 04/20/20 07:56 98.2 F 87 18 128/74 94 04/19/20 23:24 98.2 F 101 H 16 122/86 93 04/19/20 21:47 98.6 F 98 H 18 124/66 94 PG Care Time/CCT Total # of Minutes Spent Total Time Spent with Patient: Total time spent is greater than 50% in coordination of care (as documented) at patient's floor/unit and/or counseling patient: Coding Level of Care Code 03844 Subseq Hosp Care Lvl 2 Diagnoses Breast abscess N61.1 S/P lumpectomy, left breast Z98.890 Mucinous carcinoma of left breast C50.912 Hypokalemia E87.6 Pulmonary nodule R91.1
--- NOTE | 2020-04-20 14:41 | Pharmacy Report ---
Pharmacy Abx Dose Short Note - Date of Service April 20, 2020 - Assessment & Plan Assessment 64 year old F receiving IV Vancomycin and Unasyn (not a consult) for treatment of L breast abscess s/p I & D Day # 5 of antimicrobial therapy. * L breast culture resulted as MSSA; Vancomycin EVELYN = 2 * Recommend to discontinue Vancomycin; Unasyn will provide adequate coverage. Patient may also be converted to PO. Awaiting new orders from provider. Plan Vancomycin * Trough level of 16.9 mcg/mL is therapeutic * Continue dose of 1500 mg IV every 12 hours * Goal trough level for cellulitis with Vancomycin EVELYN = 2 : 15 to 20 mcg/mL * No further trough ordered; anticipate Vancomycin will be discontinued soon Pharmacy will continue to follow and will adjust dose/frequency as necessary. Thank you.
[2020-04-20] MEDS: MoRPHine SULFATE 2 MG/ML CARP IV PRN (15:24)
[2020-04-20 17:50] VITALS: O2SAT 95
[2020-04-20] MEDS: ACETAMINOPHEN 325 MG TAB PO PRN (20:25)
[2020-04-20] MEDS: KETOROLAC TROMETHAMINE 15 MG/ML VIAL IV PRN (23:48)
[2020-04-21] MEDS: oxyCODONE HCL IR 5 MG TAB (IMMEDIATE RELEASE) PO PRN (05:15)
[2020-04-21] MEDS: AMPICILLIN/SULBACTAM SOD 3,000 MG in 0.9 % SODIUM CHLORIDE 100 ML IV SCH ×2 (07:18→13:16)
[2020-04-21] MEDS: VANCOMYCIN HCL 1,500 MG in SODIUM CHLORIDE 0.9% 500 ML IV SCH (07:45)
[2020-04-21 07:55] VITALS: TEMP 97.9
[2020-04-21] MEDS: CEROVITE ADV FORMULA TAB PO SCH (09:13)
[2020-04-21] MEDS: CALCIUM 600MG + VIT D 400 IU TAB PO SCH (09:13)
[2020-04-21] MEDS: MULTIVITAMIN TAB PO SCH (09:13)
[2020-04-21] MEDS: ENOXAPARIN INJ 40 MG/0.4 ML SYR SQ SCH (09:13)
[2020-04-21 09:48] LABS: Hematocrit (blood only) 37.9 % (37-47); Mean Corpuscular Hemoglobin 29.6 pg (25-34); Mean Corpuscular Hgb Conc 31.7 g/dL (32-36); Mean Corpuscular Volume 93.3 fL (80-100); Mean Platelet Volume 9.2 fL (7.4-10.4); Platelet Count 390 K/uL (130-400); RDW Standard Deviation 44.8 fL (36.4-46.3); Red Blood Count 4.06 M/uL (4.2-5.4); White Blood Count 7.97 K/uL (4.8-10.8)
[2020-04-21 10:06] LABS: BUN Creatinine Ratio 9.9 (10-20); Calcium 8.7 mg/dl (8.5-10.1); Est GFR (African American) 77.8; Est GFR (Non-African American) 67.1; Potassium 3.5 mmol/L (3.5-5.1)
--- NOTE | 2020-04-21 10:40 | Discharge Summary ---
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 Garcia) completed 04/03/2020 presents with concerns of left breast pain for about the past week. Patient describes intermittent sharp pain from the bottom to the top of the breast. 6 out of 10 on severity scale, nonradiating. Alleviated some with ice. Exacerbated with touch. Associated decrease in se nsitivity lower half of left breast. Patient actually notes that this morning woke up with a lot of yellowish colored drainage that had a very foul odor, which prompted ER visit. Patient notes sick symptoms of fevers, chills, decreased appetite, fatigue, and decreased sense of taste and smell since about last Tuesday as well. Patient otherwise denies any nausea, vomiting, diarrhea, chest pain, shortness of breath, other respiratory symptoms, abdominal pain, urinary symptoms, known sick contacts or recent travel anywhere. Patient with no other acute concerns or complaints. Pertinent labs: CBC CMP largely unremarkable. Alk phos 120, albumin 2.3. Covid negative POC ultrasound showing large pocket of fluid with septations likely consistent with abscess ER course: IV vancomycin, IV morphine 4 mg, NSS 1 L Principal Diagnosis breast abscess Discharge Exam Constitutional WD/WN, vitals as above Respiratory normal respiratory effort, lungs clear to auscultation Cardiovascular RRR, no murmur, no edema Gastrointestinal (Abdomen) normal bowel sounds, soft, nontender, no hepatosplenomegaly ventral hernia, patient reports it is at baseline Musculoskeletal no cyanosis or clubbing, extremities motor strength 5/5 Skin no rashes, warm and dry Neurologic patellar DTR's 2+ bilat, sensation intact Psychiatric A+Ox3, euthymic affect Discharge Data Allergies Allergy/AdvReac Type Severity Reaction Status Date / Time No Known Allergies Allergy Verified 04/25/20 08:27 Consultations 04/16/20 16:48 ED Decision to Admit Stat 04/16/20 23:04 Consult General Surgery Routine Procedures Performed Operation Date: 04/16/20 21:30 Actual Procedures p Left Breast Abscess Incision and Drainage(Left) - Jessica Bennett MD Ordered Studies 04/16/20 16:26 US point of care ultrasound Stat 04/17/20 19:01 CT angio chest PE protocol Urgent Hospital Course (1) Breast abscess: 64-year-old female with past medical history of 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 Garcia) completed last month presented with concerns of left breast pain, fevers, chills found to have abscess on ultrasound. * OR I&D 04/16 * IV vancomycin and Zosyn on admission, Switched abx to Unasyn/Vanco to prevent toxicity on 04/17 * Blood cultures NGTD after 48 hours * Culture from I&D growing MSSA * Wound RN consulted -- seen 04/18 and will need follow up with wound center after discharge * Transition to PO abx at the time of discharge will put on Keflex given the MSSA sensitivities * Patient is requiring pain medication prior to dressing changes. (2) S/P lumpectomy, left breast: * Left Breast Lumpectomy with Localization, Juanita Tap Builder( 01-03-20) vs. Wire, and Left Axillary Ina Lymph Node Biopsy(Left) - Luis Quintero DO, FACS 01/09/20 * Follows locally (3) Mucinous carcinoma of left breast: * s/p lumpectomy (4) Hypokalemia: * replete (5) Pulmonary nodule: * Chest CT from April 2019 showing a few likely benign solid pulmonary nodules noted throughout the right lung measuring up to 5 mm * According to Fleischner criteria recommendations patient will be due for follow-up CT at 12 months which would be around this time. Given patient's somewhat shortness of breath moving around in the bed a CTA was ordered to additionally rule out PEs as well. * CTA negative for PE * Stable 5mm nodule, no new nodules * Continue to follow outpatient (6) Elevated hemoglobin A1c: A1c 6.1 - follow with pcp Total Time Total Time Spent Total Time Spent (In Minutes): greater than 30 minutes Discharge Plan Discharge Items Patient Disposition: Home - Home Health Services Reason For Visit: BREAST ABCESS Discharge Diagnosis: breast abscess, staph species, will have on two weeks of Keflex with duration to be reassesed at wound clinic Activity: Per Instructions section Activity Comment: no significant exertion Non-emergency contact: Primary Care Provider and Specialist Call non-emergency contact if: you have any medication questions, your symptoms worsen, your pain is worsening, you have a fever and your wound has increased drainage Follow-up/Referrals: Rodrigo Gonsalves MD [Primary Care Provider] - 04/23/20 10:00 am (follow up in one week ) Jv Rodrigues DO [Physician] - 04/25/20 8:30 am Diet: Regular Addtl Attending Provider Instructions: You have been diagnosed with an abscess that contains staphylococcus aureus (not MRSA). You will be on outpatient oral antibiotics to combat staph. Certainly we need to keep good watch on this wound to make sure it is improving and not worsening. If your wound seems to be worsening or if you develop fevers or chills or increased pain you should seek reevaluation with a healthcare provider. Follow-up with outpatient wound care center to assess the duration of the antibiotics we are going to start with 2-week course however it may need to be extended if your wound is slow to heal Your blood sugars were running just slightly elevated on your labs. Your A1c was 6.1% which is above normal but below the "diabetic" range. Please follow up with your primary care provider to discuss lifestyle interventions you can take to improve your blood sugars. Your CT scan showed that a previously identified pulmonary nodule was stable. Please continue to follow this with your primary care provider Pending Studies at Discharge: No Stand-Alone Forms: My [facility], Smoking Cessation Medications and DC Order Prescriptions: New cephalexin 500 mg capsule 500 mg PO QID 14 Days Qty: 56 RF: 0 Continued multivitamin Capsule 1 cap PO QAM Qty: 0 RF: 0 calcium citrate-vitamin D3 [Citracal + D Maximum] 315-250 mg-unit Tablet 2 tab PO QAM RF: 0 multivitamin with minerals [Hair,Skin and Nails] Tablet 1 tab PO DAILY RF: 0 Discontinued amoxicillin 500 mg tablet See Rx Instructions .ROUTE .COMPLEX PRN (Reason: Prior to Dental Work) RF: 0 No Action oxycodone-acetaminophen 5-325 mg tablet 2 tab PO Q6H PRN (Reason: pain) Qty: 24 RF: 0 Discharge Orders: Discharge Order (Routine); Ordered 04/21/20 Ordered By: Mera Quintero/Other Patient Handouts: A1C Admission Data Admit Date/Time: 04/16/20 20:56 Attending Provider: Ari Mcdonald Admit Provider: Rc Padron Primary Care Provider: Rodrigo Gonsalves Other Providers: Jessica Bennett ; Harry Paul ; [facility] Other Interventions: Discharge Summary Assessment (RN) Last Done: 04/21/20 12:35 Supervising Physician Co-Signing Physician Notes Patient seen and examined on the day of discharge. I agree with the discharge summary by Mera HAYES. I have reviewed the chart including labs, imaging and plans for discharge. patient doing well, no pain, no fever, eating well, ready to go home Breast abscess: transition to Keflex on discharge to complete full course, follow up with PCP Coding Level of Care Code D/C Day Management >30 mins Diagnoses Breast abscess N61.1 S/P lumpectomy, left breast Z98.890 Mucinous carcinoma of left breast C50.912 Hypokalemia E87.6 Pulmonary nodule R91.1 Elevated hemoglobin A1c R73.09
[2020-04-21 11:53] LABS: Estimated Average Glucose 128 mg/dl; Hemoglobin A1C 6.1 % (4.5-5.6)
[2020-04-21] MEDS: MoRPHine SULFATE 2 MG/ML CARP IV PRN (12:29)
[2020-04-21 12:40] VITALS: BP 127/72; PULSE 84
== END 2020-04-21 14:11 | disposition home health service (06) | DRG 584 ==
LOC: ED 13:25 → ASU 20:55 → 3W 20:56 → SUATTDRO 20:56

== ENCOUNTER 2020-12-31 17:44 | Inpatient (IN) ==
[2020-12-31] MEDS ORDERED: SODIUM CHLORIDE 0.9% 1000ML 1,000 ML IV SCH (18:30)
[2020-12-31 18:39] LABS: Basophils # (auto) 0.04 K/uL (0-0.2); Basophils % (auto) 0.3 %; Eosinophils % (auto) 1.7 %; Hematocrit (blood only) 38.3 % (37-47); Hemoglobin 12.8 g/dL (12.0-16.0); Immature Granulocytes # (auto) 0.04 K/uL (0.00-0.02); Immature Granulocytes % (auto) 0.3 %; Lymphocytes # (auto) 1.58 K/uL (1.2-3.4); Lymphocytes % (auto) 13.8 %; Mean Corpuscular Hgb Conc 33.4 g/dL (32-36); Mean Corpuscular Volume 92.7 fL (80-100); Mean Platelet Volume 9.6 fL (7.4-10.4); Monocytes # (auto) 0.61 K/uL (0.11-0.59); Monocytes % (auto) 5.3 %; Neutrophils # (auto) 8.98 K/uL (1.4-6.5); Neutrophils % (auto) 78.6 %; Platelet Count 300 K/uL (130-400); RDW Coefficient of Variation 13.2 % (11.5-14.5); RDW Standard Deviation 44.6 fL (36.4-46.3); Red Blood Count 4.13 M/uL (4.2-5.4); White Blood Count 11.45 K/uL (4.8-10.8)
--- NOTE | 2020-12-31 18:52 | XRay Report ---
XR chest 1V portable HISTORY: SEPSIS COMPARISON: Chest 04/16/2020. FINDINGS: No focal lung consolidations to suggest pneumonia. No evidence for bone edema. No pleural e ffusions. No pneumothorax. The cardiac silhouette remains mildly enlarged. There are old, healed left -sided rib fractures, unchanged. There is a large hiatus hernia, unchanged. Questionable left deviati on of the upper trachea is likely positional. IMPRESSION: No significant change compared to the prior study. No acute process. ACT 112: Negative or not required by law. Electronically signed by: Harpreet Kiran M.D. 12/31/2020 6:51 PM
[2020-12-31] MEDS ORDERED: ONDANSETRON INJ 2 MG/ML 2 ML VIAL IV STA (18:56)
[2020-12-31] MEDS ORDERED: MoRPHine SULFATE 4 MG/ML 1 ML CARP\\VIAL IV STA (18:56)
[2020-12-31 18:57] LABS: Alanine Aminotransferase 23 U/L (12-78); Aspartate Aminotransferase 18 U/L (15-37); BUN Creatinine Ratio 23.7 (10-20); Blood Urea Nitrogen 25 mg/dl (7-18); Calcium 8.9 mg/dl (8.5-10.1); Carbon Dioxide 27 mmol/L (21-32); Chloride 106 mmol/L (98-107); Creatinine Clr Calc Pharmacy 63.2 ml/min; Est GFR (African American) 64.1 ml/min; Est GFR (Non-African American) 55.3 ml/min; Glucose 116 mg/dl (70-99); Magnesium 2.2 mg/dl (1.8-2.4); Potassium 3.7 mmol/L (3.5-5.1); Sodium 139 mmol/L (136-145)
[2020-12-31 18:58] LABS: Partial Thromboplastin Ratio 0.9; Partial Thromboplastin Time 24.5 Seconds (21.0-31.0); Prothrombin Time 9.8 Seconds (9.0-12.0)
[2020-12-31 19:02] LABS: Albumin Globulin Ratio 0.6 (0.9-2); Alkaline Phosphatase 103 U/L (45-117); Bilirubin,Total 0.9 mg/dl (0.2-1); Globulin 4.9 gm/dl (2.5-4.0); Total Protein 7.9 gm/dl (6.4-8.2); Troponin I < 0.015 ng/ml (0-0.045)
[2020-12-31] MEDS ORDERED: VANCOMYCIN HCL 2,750 MG in SODIUM CHLORIDE 0.9% 500 ML IV ONE (19:05)
[2020-12-31] MEDS ORDERED: VANCOMYCIN CONSULT ACTIVE PRN ×2 (19:05→22:24)
[2020-12-31] MEDS ORDERED: PIPERACILLIN/TAZOBACTAM 4.5 GM/120 ML BAG IV ONE (19:05)
--- NOTE | 2020-12-31 19:29 | Emergency Department Note ---
History of Present Illness General Chief complaint: Breast Pain/Problems Stated complaint: ABSCESS IN L BREAST Time Seen by Provider: 12/31/20 18:07 History of Present Illness Provider complaint: Left breast abscess Onset (ago): day(s) 3 Location: chest (Breast) and left Radiation: non-radiation Severity: moderate Pain Consistency: + constant Maximum Pain Intensity: 4 Current Pain Intensity: 4 Quality: + dull Relieved By: + none Exacerbated By: + none Associated symptoms: + fever/chills (Subjective fever) and + rash; no confusion, no cough, no headaches, no nausea/vomiting, no shortness of breath or no weakness 65-year-old female with history of breast cancer presents emergency department for left breast abscess. Patient states she has a history of a left breast abscess which need to be surgically drained in April and she had a wound VAC until June. She states 3 days ago she noticed that the left breast abscess was recurring. She reports subjective fevers the last 3 days. She also reports chills. Patient reports redness over the left breast with active draining. Patient denies any chest pain difficulty breathing nausea vomiting diarrhea. Home Medications Medication Instructions Recorded Confirmed Type calcium citrate 315 mg 2 tab PO QAM 01/02/18 12/31/20 History calcium-vitamin D3 6.25 mcg (250 unit) tablet (Citracal + Vitamin D Maximum) multivitamin with minerals 1 tab PO DAILY 04/16/20 12/31/20 History (Hair,Skin and Nails) anastrozole 1 mg tablet 1 mg PO DAILY 08/01/20 12/31/20 History amoxicillin 500 mg tablet 2,000 mg PO ONCE #16 tab 09/01/20 12/31/20 Rx multivitamin 1 tab PO QAM 12/31/20 12/31/20 History Allergies Allergy/AdvReac Type Severity Reaction Status Date / Time No Known Allergies Allergy Verified 12/31/20 15:48 Past Med/Surg History Medical History Abdominal hernia History of hypothyroidism History of positive PPD 2002. Was treated with meds x 9 months Internal hemorrhoids Lichen sclerosus et atrophicus Menopause Morbid obesity Mucinous carcinoma of breast Osteoarthritis PAD (peripheral artery disease) Pulmonary nodules Per chest CT 04/19 Vaginal itching Vulvitis Surgical History Difficult airway for intubation noted from a prior surgery in medical record, patient was unaware. Family history of reaction to anesthesia Mother- "slow to wake", PONV H/O wrist surgery Broken left wrist 2007 History of arthroscopy Bilateral knee History of bilateral tubal ligation History of cholecystectomy History of colonoscopy 2014 [facility] History of gastric bypass 2006 History of herniorrhaphy umbilical 2014 History of hysterectomy BSO 1989 History of surgery on arm Broken right upper arm 2011 History of tooth extraction History of total left knee replacement History of total right knee replacement (TKR) S/P lumpectomy, left breast (01/09/20) Left Breast Lumpectomy with Localization, Juanita Forms Designer( 01-03-20) vs. Wire, and Left Axillary [place] Lymph Node Biopsy(Left) - Luis Quintero, , FACS 01/09/20 Family History Mother , 88yo Obstruction of bowel Cancer Stroke Father , 39yo Industrial accident Brother A-fib Son MVA (motor vehicle accident) Other No family history of adverse response to anesthesia Patient's mother is Social History Smoking Status: Never smoker Second Hand Exposure: Yes (hx -- family members); Hx Alcohol Use: No Hx Substance Use: No Preferred Language: Russian Communication Ability: Effective Visual Impairment: No Limitations Hearing Ability: Normal Revolving Field Assembler Required: No Beliefs That Will Affect Care: None marital status: Current Living Situation: Spouse current occupational status: retired 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, [employer] Other Information That Helps Us Care for You: No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 Feels Safe at Home: Yes Safety Concerns: Feels Safe At This Time caffeine: Yes (4-5 cups/day) during the past year weight has: remained stable Assistive Devices: None Review of Systems A total of 10 systems reviewed and were otherwise negative Physical Exam Vital Signs Vital Signs - 24 hr 12/31/20 17:59 12/31/20 18:30 12/31/20 18:40 Temperature 36.2 C L Temperature Source Temporal Artery Scan Pulse Rate 94 H 86 Pulse Rate from SpO2 Sensor Respiratory Rate 20 16 Respiratory Effort / Characteristics Non-Labored Spontaneous Non-Labored Respiratory Depth Normal Blood Pressure 137/79 Blood Pressure Mean 98 Blood Pressure Position Sitting Pulse Oximetry 95 99 Oxygen Delivery Method Room Air Room Air Sepsis Recent Fever Within 48 Hours Yes Sepsis New/Unexplained Change in Mental Status N/A Sepsis Action Taken by Nursing No Action Required 12/31/20 18:45 12/31/20 18:51 12/31/20 19:00 Temperature Temperature Source Pulse Rate 87 83 Pulse Rate from SpO2 Sensor 83 Respiratory Rate 15 20 Respiratory Effort / Characteristics Non-Labored Respiratory Depth Blood Pressure 118/78 Blood Pressure Mean 91 Blood Pressure Position Pulse Oximetry 94 Oxygen Delivery Method Sepsis Recent Fever Within 48 Hours Sepsis New/Unexplained Change in Mental Status Sepsis Action Taken by Nursing 12/31/20 19:15 12/31/20 19:30 12/31/20 20:00 Temperature Temperature Source Pulse Rate 82 80 74 Pulse Rate from SpO2 Sensor 82 78 74 Respiratory Rate 18 20 16 Respiratory Effort / Characteristics Respiratory Depth Blood Pressure 118/57 L 115/66 112/64 Blood Pressure Mean 77 82 80 Blood Pressure Position Pulse Oximetry 91 91 93 Oxygen Delivery Method Sepsis Recent Fever Within 48 Hours Sepsis New/Unexplained Change in Mental Status Sepsis Action Taken by Nursing Physical Exam GENERAL: She is oriented to person, place, and time. She appears well-developed and well-nourished. She does not appear distressed. HENT: Exam performed. -Head: Normocephalic and atraumatic. -Right Ear: External ear normal. No mastoid tenderness. -Left Ear: External ear normal. No mastoid tenderness. -Mouth/Throat: The oropharynx is clear and moist. No trismus in the jaw. No dental abscesses or uvula swelling. No oropharyngeal exudate or tonsillar abscesses. EYES: Conjunctivae and EOM are normal. Pupils are equal, round, and reactive to light. Right eye exhibits no discharge. Left eye exhibits no discharge. No scleral icterus. NECK: Normal range of motion. Neck supple. No JVD present. No spinous process tenderness present. No carotid bruit present. No rigidity. No tracheal deviation and normal range of motion present. No Brudzinski's sign and no Kernig's sign noted. CV: Normal rate, regular rhythm, normal heart sounds and intact distal pulses. There is no peripheral edema. Palpable radial pulses bue. PULM/CHEST: Effort normal and breath sounds normal. No respiratory distress. No stridor. She has no wheezes. She has no rales. -Chest Wall: Conducted with female nursing projects manager Triny at bedside. Left breast abscess is erythematous and warmth to touch consistent with a large cellulitis. Area is fluctuant Consistent clinically with an area of abscess that is actively draining purulent discharge. no vesicles. Nikolsky negative. No crepitus and no dark lesions to suggest necrotizing fasciitis. ABD: The abdomen is soft. Bowel sounds are normal. She has no distension. No mas s is present. There is no tenderness. There is no rebound, no guarding, no Ernandez's sign and no tenderness at McBurney's point. Rovsig negative MUSC/SKEL: Normal range of motion. There is no peripheral edema, tenderness or deformity. LYMPH: No cervical adenopathy. NEURO: She is alert and oriented to person, place, and time. She has normal strength. No cranial nerve deficit or sensory deficit. Coordination and gait normal. GCS eye subscore is 4. GCS verbal subscore is 5. GCS motor subscore is 6. Cerebellar tests wnl. SKIN: Skin is warm and dry. She is not diaphoretic. PSYCH: She has a normal mood and affect. Behavior is normal. Judgment and thought content normal. Course Course 1806: The patient was evaluated in room C3. A complete history and physical exam was performed Cardiac monitoring: An order was placed for continuous cardiac monitoring. The monitor shows a rate of 90 with sinus rhythm EMR reviewed. In April the patient had an I&D done by Dr. Bennett of her left breast abscess. Patient had wound nurse for 6 weeks and wound VAC and packing. Patient was seen by PCP today and referred to the emergency department. 2030: Vital signs stable.Labs show white blood cell count of 11.45. Imaging shows 4.7 x 4 x 2.4 cm left breast abscess. Patient treated with Vanco and Zosyn. Discussed the case with general surgery Ricco Holbrook who stated to admit to Dr. Holbrook service. Administered Medications Piperacillin Sod/Tazobactam (Sod 4.5 gm/ Dextrose) 120 mls @ 30 mls/hr IV Q[facility]H [facility]; Protocol Stop: 01/08/21 00:00 Last Admin: 12/31/20 23:49 Dose: 30 mls/hr Documented by: [id number] Discontinued Medications Sodium Chloride (Nss 1000ml) 1,000 mls @ 999 mls/hr IV .Q1H1M OLYA Stop: 12/31/20 19:30 Last Infusion: 12/31/20 20:15 Dose: 0 mls/hr Documented by: [id number] Admin: 12/31/20 18:54 Dose: 999 mls/hr Documented by: [id number] Vancomycin HCl 2,750 mg/ (Sodium Chloride) 555 mls @ 200 mls/hr IV NOW ONE Stop: 12/31/20 21:51 Last Infusion: 12/31/20 23:49 Dose: 0 mls/hr Documented by: [id number] Admin: 12/31/20 20:05 Dose: 200 mls/hr Documented by: [id number] Piperacillin Sod/Tazobactam Sod (Zosyn) 4.5 gm in 120 mls @ 240 mls/hr IV NOW ONE Stop: 12/31/20 19:34 Last Infusion: 12/31/20 20:54 Dose: 0 mls/hr Documented by: [id number] Admin: 12/31/20 20:05 Dose: 240 mls/hr Documented by: [id number] Morphine Sulfate (Morphine Sulfate 4 Mg/Ml 1 Ml Carp\\Vial) 4 mg IV NOW STA Stop: 12/31/20 18:57 Last Admin: 12/31/20 19:02 Dose: 4 mg Documented by: [id number] Ondansetron HCl (Ondansetron Inj 2 Mg/Ml 2 Ml Vial) 4 mg IV NOW STA Stop: 12/31/20 18:57 Last Admin: 12/31/20 19:02 Dose: 4 mg Documented by: [id number] Medical Decision Making Laboratory Data Result diagrams: 12/31/20 18:23 12/31/20 18:23 Lab Results 12/31/20 12/31/20 12/31/20 Range/Units 18:23 18:23 18:23 WBC 11.45 H (4.8-10.8) K/uL RBC 4.13 L (4.2-5.4) M/uL Hgb 12.8 (12.0-16.0) g/dL Hct 38.3 (37-47) % MCV 92.7 (80-100) fL MCH 31.0 (25-34) pg MCHC 33.4 (32-36) g/dL RDW Std Deviation 44.6 (36.4-46.3) fL RDW Coeff of Marya 13.2 (11.5-14.5) % Plt Count 300 (130-400) K/uL MPV 9.6 (7.4-10.4) fL Immature Gran % (Auto) 0.3 % Neut % (Auto) 78.6 % Lymph % (Auto) 13.8 % Banner % (Auto) 5.3 % Eos % (Auto) 1.7 % Baso % (Auto) 0.3 % Neut # (Auto) 8.98 H (1.4-6.5) K/uL Lymph # (Auto) 1.58 (1.2-3.4) K/uL Banner # (Auto) 0.61 H (0.11-0.59) K/uL Eos # (Auto) 0.20 (0-0.5) K/uL Baso # (Auto) 0.04 (0-0.2) K/uL Immature Gran # (Auto) 0.04 H (0.00-0.02) K/uL PT 9.8 (9.0-12.0) Seconds INR 1.0 (0.9-1.1) APTT 24.5 (21.0-31.0) Seconds PTT Ratio 0.9 Sodium 139 (136-145) mmol/L Potassium 3.7 (3.5-5.1) mmol/L Chloride 106 (98-107) mmol/L Carbon Dioxide 27 (21-32) mmol/L Anion Gap 7.0 (3-11) BUN 25 H (7-18) mg/dl Creatinine 1.05 (0.6-1.2) mg/dl Est Cr Clr Drug Dosing 63.2 ml/min Est GFR ( Amer) 64.1 ml/min Est GFR (Non-Af Amer) 55.3 ml/min BUN/Creatinine Ratio 23.7 H (10-20) Glucose 116 H (70-99) mg/dl Lactate (0.4-2.0) mmol/L Calcium 8.9 (8.5-10.1) mg/dl Magnesium 2.2 (1.8-2.4) mg/dl Total Bilirubin 0.9 (0.2-1) mg/dl AST 18 (15-37) U/L ALT 23 (12-78) U/L Alkaline Phosphatase 103 (45-117) U/L Troponin I < 0.015 (0-0.045) ng/ml Total Protein 7.9 (6.4-8.2) gm/dl Albumin 3.0 L (3.4-5.0) gm/dl Globulin 4.9 H (2.5-4.0) gm/dl Albumin/Globulin Ratio 0.6 L (0.9-2) Procalcitonin (0-0.5) ng/ml COVID-19 Eval Order SARS-CoV-2 (PCR) (Negative) 12/31/20 12/31/20 12/31/20 Range/Units 18:23 18:23 18:23 WBC (4.8-10.8) K/uL RBC (4.2-5.4) M/uL Hgb (12.0-16.0) g/dL Hct (37-47) % MCV (80-100) fL MCH (25-34) pg MCHC (32-36) g/dL RDW Std Deviation (36.4-46.3) fL RDW Coeff of Marya (11.5-14.5) % Plt Count (130-400) K/uL MPV (7.4-10.4) fL Immature Gran % (Auto) % Neut % (Auto) % Lymph % (Auto) % Banner % (Auto) % Eos % (Auto) % Baso % (Auto) % Neut # (Auto) (1.4-6.5) K/uL Lymph # (Auto) (1.2-3.4) K/uL Banner # (Auto) (0.11-0.59) K/uL Eos # (Auto) (0-0.5) K/uL Baso # (Auto) (0-0.2) K/uL Immature Gran # (Auto) (0.00-0.02) K/uL PT (9.0-12.0) Seconds INR (0.9-1.1) APTT (21.0-31.0) Seconds PTT Ratio Sodium (136-145) mmol/L Potassium (3.5-5.1) mmol/L Chloride (98-107) mmol/L Carbon Dioxide (21-32) mmol/L Anion Gap (3-11) BUN (7-18) mg/dl Creatinine (0.6-1.2) mg/dl Est Cr Clr Drug Dosing ml/min Est GFR ( Amer) ml/min Est GFR (Non-Af Amer) ml/min BUN/Creatinine Ratio (10-20) Glucose (70-99) mg/dl Lactate 1.4 (0.4-2.0) mmol/L Calcium (8.5-10.1) mg/dl Magnesium (1.8-2.4) mg/dl Total Bilirubin (0.2-1) mg/dl AST (15-37) U/L ALT (12-78) U/L Alkaline Phosphatase (45-117) U/L Troponin I (0-0.045) ng/ml Total Protein (6.4-8.2) gm/dl Albumin (3.4-5.0) gm/dl Globulin (2.5-4.0) gm/dl Albumin/Globulin Ratio (0.9-2) Procalcitonin < 0.05 (0-0.5) ng/ml COVID-19 Eval Order Covid19 at [facility] SARS-CoV-2 (PCR) (Negative) 12/31/20 Range/Units 18:23 WBC (4.8-10.8) K/uL RBC (4.2-5.4) M/uL Hgb (12.0-16.0) g/dL Hct (37-47) % MCV (80-100) fL MCH (25-34) pg MCHC (32-36) g/dL RDW Std Deviation (36.4-46.3) fL RDW Coeff of Marya (11.5-14.5) % Plt Count (130-400) K/uL MPV (7.4-10.4) fL Immature Gran % (Auto) % Neut % (Auto) % Lymph % (Auto) % Banner % (Auto) % Eos % (Auto) % Baso % (Auto) % Neut # (Auto) (1.4-6.5) K/uL Lymph # (Auto) (1.2-3.4) K/uL Banner # (Auto) (0.11-0.59) K/uL Eos # (Auto) (0-0.5) K/uL Baso # (Auto) (0-0.2) K/uL Immature Gran # (Auto) (0.00-0.02) K/uL PT (9.0-12.0) Seconds INR (0.9-1.1) APTT (21.0-31.0) Seconds PTT Ratio Sodium (136-145) mmol/L Potassium (3.5-5.1) mmol/L Chloride (98-107) mmol/L Carbon Dioxide (21-32) mmol/L Anion Gap (3-11) BUN (7-18) mg/dl Creatinine (0.6-1.2) mg/dl Est Cr Clr Drug Dosing ml/min Est GFR ( Amer) ml/min Est GFR (Non-Af Amer) ml/min BUN/Creatinine Ratio (10-20) Glucose (70-99) mg/dl Lactate (0.4-2.0) mmol/L Calcium (8.5-10.1) mg/dl Magnesium (1.8-2.4) mg/dl Total Bilirubin (0.2-1) mg/dl AST (15-37) U/L ALT (12-78) U/L Alkaline Phosphatase (45-117) U/L Troponin I (0-0.045) ng/ml Total Protein (6.4-8.2) gm/dl Albumin (3.4-5.0) gm/dl Globulin (2.5-4.0) gm/dl Albumin/Globulin Ratio (0.9-2) Procalcitonin (0-0.5) ng/ml COVID-19 Eval Order SARS-CoV-2 (PCR) NEGATIVE (Negative) Imaging Data Radiologist's Impression: Breast Ultrasound 12/31/20 18:20 US breast LT complete CLINICAL HISTORY: Left breast fullness status post radiation. COMPARISON STUDY: None. FINDINGS: Real-time sonographic imaging of the left breast was performed with sales representative livestock images submitted. At the 9:00 position there is a slightly complex fluid collection measuring 4.7 x 4.0 x 2.4 cm. This contains a few septations and internal echoes. There is surrounding echogenic fat and edematous soft tissue. IMPRESSION: A 4.7 x 4.0 x 2.4 cm slightly complex fluid collection within the left breast at the 9:00 location. This could represent an abscess or p ostoperative seroma. ACT 112: Negative or not required by law. Electronically signed by: Harpreet Kiran M.D. 12/31/2020 8:07 PM Chest X-Ray 12/31/20 18:20 XR chest 1V portable HISTORY: SEPSIS COMPARISON: Chest 04/16/2020. FINDINGS: No focal lung consolidations to suggest pneumonia. No evidence for bone edema. No pleural effusions. No pneumothorax. The cardiac silhouette remains mildly enlarged. There are old, healed left-sided rib fractures, unchanged. There is a large hiatus hernia, unchanged. Questionable left deviation of the upper trachea is likely positional. IMPRESSION: No significant change compared to the prior study. No acute process. ACT 112: Negative or not required by law. Electronically signed by: Harpreet Kiran M.D. 12/31/2020 6:51 PM ECG Data Indication: + SOB/dyspnea Rate (beats per minute): 85 Rhythm: + normal sinus ECG Intervals/blocks: + Normal [place] and + Normal QT-c ECG ST segments: + Normal ST segments Additional Comments: QRS 76 MDM Narrative Vital signs stable.Labs show white blood cell count of 11.45. Imaging shows 4.7 x 4 x 2.4 cm left breast abscess. Patient treated with Vanco and Zosyn. Discussed the case with general surgery Ricco Holbrook who stated to admit to Dr. Holbrook service. Impression & Plan Abscess of breast Discharge Plan Visit Data Chief Complaint: Breast Pain/Problems Stated Complaint: ABSCESS IN L BREAST ED Provider: Luis Alonzo Discharge Problem: Abscess of breast Patient Disposition: Admitted As Inpatient Discharge Instructions Interventions: ED Discharge Assessment Last Done: 12/31/20 21:40
--- NOTE | 2020-12-31 20:08 | Ultrasound Report ---
US breast LT complete CLINICAL HISTORY: Left breast fullness status post radiation. COMPARISON STUDY: None. FINDINGS: Real-time sonographic imaging of the left breast was performed with patient accounting representative images s ubmitted. At the 9:00 position there is a slightly complex fluid collection measuring 4.7 x 4.0 x 2.4 cm. This contains a few septations and internal echoes. There is surrounding echogenic fat and edema tous soft tissue. IMPRESSION: A 4.7 x 4.0 x 2.4 cm slightly complex fluid collection within the left breast at the 9:0 0 location. This could represent an abscess or postoperative seroma. ACT 112: Negative or not required by law. Electronically signed by: Harpreet Kiran M.D. 12/31/2020 8:07 PM
--- NOTE | 2020-12-31 20:51 | History & Physical Report ---
Date of Service December 31, 2020 Assessment & Plan (1) Breast abscess: Plan: Patient will be admitted to the hospital proceeding as follows: Analgesics will be provided Antiemetics will be provided Blood cultures have been ordered by the emergency room physician and are pending we will follow for results of these. Antibiotics in the form of vancomycin and Zosyn have been initiated by the emergency room physician. We will continue these antibiotics As the patient had a previous breast abscess with a complicated wound healing process and the fact that she has had noted septations on today's ultrasound I feel an I&D in the operating room is warranted. I discussed case with my attending Dr. Logan Holbrook and he is planning on performing this procedure in the operating room tomorrow. Operative cultures will be obtained. Antibiotics can be tailored based on patient's clinical response and pending culture results Will be allowed a regular diet for this evening but made n.p.o. after midnight A Covid test has been ordered and will follow for the results of this We will utilize SCDs for DVT prevention no chemical means will be used due to pending surgery I did discuss CODE STATUS with the patient in the event of cardiopulmonary rest she wishes to be a level 1 full code History of Present Illness Chief Complaint: I have a breast abscess Primary Care Provider: Rishi Gonsalves MD This is a 65-year-old female with a prior history of a left breast abscess. She has a complicated wound history concerning her left breast. Patient does have a history of stage Ia left-sided breast cancer for which she underwent a lumpectomy by Dr. Quintero in December 2019. She subsequently underwent radiation therapy which she completed in March 2020. The patient did develop a seroma at her lumpectomy site which eventually progressed to a left breast abscess which underwent an incision and drainage in April 2020. Cultures were reviewed and grew out methicillin sensitive staph aureus. Patient was in the hospital for approximately 1 week receiving intravenous antibiotics in the form of Zosyn, vancomycin, and Unasyn. She was ultimately discharged home on oral Keflex. Patient was ultimately followed in the wound care center as she did have a wound VAC in place. Patient was most recently seen at the wound care center in July [id number] and was ultimately discharged as her wound was noted to be healed. Patient presented to [facility] today as she has noted 1 week of increased soreness, erythema, and induration of the left breast near the the site of her previous wound. Patient noted that the area started draining approximately 2 days ago of foul-smelling purulent material. She has had felt feverish although she did not take her temperature but she did admit to some chills. She denies any nausea or vomiting. She denies any abdominal pain. She denies any cough or shortness of breath or other concerning symptoms. In the emergency department she had labs and imaging which I dependently reviewed. An ultrasound of her left breast showed a complex fluid collection with septations measuring 4.7 x 4.0 x 2.4 cm.In addition the patient had a chest x-ray that showed no evidence of pneumonia. CBC revealed white blood cell count was elevated 11.45. Hemoglobin, hematocrit, and platelet count were all within normal range. Chemistry profile showed her sodium, potassium, and creatinine were all within normal range. A Covid test has been performed and was noted to be pending. An EKG was performed that showed normal sinus rhythm without acute ischemic changes. At the time of my interview the patient was noted to be afebrile. She was in no distress but did have some discomfort with palpation of her left breast. Allergies Allergy/AdvReac Type Severity Reaction Status Date / Time No Known Allergies Allergy Verified 12/31/20 15:48 Home Medications Medication Instructions Recorded Confirmed Type calcium citrate 315 mg 2 tab PO QAM 01/02/18 12/31/20 History calcium-vitamin D3 6.25 mcg (250 unit) tablet (Citracal + Vitamin D Maximum) multivitamin with minerals 1 tab PO DAILY 04/16/20 12/31/20 History (Hair,Skin and Nails) anastrozole 1 mg tablet 1 mg PO DAILY 08/01/20 12/31/20 History amoxicillin 500 mg tablet 2,000 mg PO ONCE #16 tab 09/01/20 12/31/20 Rx multivitamin 1 tab PO QAM 12/31/20 12/31/20 History Past Med/Surg History Medical History Abdominal hernia History of hypothyroidism History of positive PPD 2002. Was treated with meds x 9 months Internal hemorrhoids Lichen sclerosus et atrophicus Menopause Morbid obesity Mucinous carcinoma of breast Osteoarthritis PAD (peripheral artery disease) Pulmonary nodules Per chest CT 04/19 Vaginal itching Vulvitis Surgical History Difficult airway for intubation noted from a prior surgery in medical record, patient was unaware. Family history of reaction to anesthesia Mother- "slow to wake", PONV H/O wrist surgery Broken left wrist 2007 History of arthroscopy Bilateral knee History of bilateral tubal ligation History of cholecystectomy History of colonoscopy 2014 [facility] [place] History of gastric bypass 2006 History of herniorrhaphy umbilical 2014 History of hysterectomy BSO 1989 History of surgery on arm Broken right upper arm 2011 History of tooth extraction History of total left knee replacement History of total right knee replacement (TKR) S/P lumpectomy, left breast (01/09/20) Left Breast Lumpectomy with Localization, Juanita Associate Editor( 01-03-20) vs. Wire, and Left Axillary [place] Lymph Node Biopsy(Left) - Luis Quintero, DO, FACS 01/09/20 Family History Mother , 88yo Obstruction of bowel Cancer Stroke Father , 39yo Industrial accident Brother A-fib Son MVA (motor vehicle accident) Other No family history of adverse response to anesthesia Patient's mother is Social History Smoking Status: Never smoker Second Hand Exposure: Yes (hx -- family members); Hx Alcohol Use: No Hx Substance Use: No Preferred Language: Turkish Communication Ability: Effective Visual Impairment: No Limitations Hearing Ability: Normal Fruit Distributor Required: No Beliefs That Will Affect Care: None marital status: Current Living Situation: Spouse current occupational status: retired 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, [employer] Other Information That Helps Us Care for You: No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 Feels Safe at Home: Yes Safety Concerns: Feels Safe At This Time caffeine: Yes (4-5 cups/day) during the past year weight has: remained stable Assistive Devices: Glasses Review of Systems Constitutional: + fever and + chills Eyes: no diplopia Ear, Nose, Mouth, Throat: no ear pain and no sore throat Respiratory: no cough and no dyspnea Cardiovascular: no chest pain Gastrointestinal: no abdominal pain, no nausea and no vomiting Genitourinary: no dysuria Musculoskeletal: no back pain Integumentary: no rash Neurologic: no localized weakness Physical Exam Constitutional: WD/WN, vitals as above Eyes: no conjunctival abnormality ENMT: Ears: no hearing impairment Nose: no external nose abnormality Mouth: no oral mucosal abnormality Neck: trachea midline Respiratory: normal respiratory effort; no respiratory distress and no labored breathing Cardiovascular: Rate/Rhythm: regular rate and regular rhythm Chest (Breasts): Additional Comments: Patient's left breast was examined with a female nurse bakery worker conveyor line present at bedside. On the lateral aspect of her breast there is an area that was erythematous with slight warmth to touch. The area was hard and indurated. There is some purulent material draining from it. There is a scar noted from previous wound. There is no crepitus noted in the soft tissue. Gastrointestinal (Abdomen): Abdomen is soft and nondistended. There is no pain with palpation Musculoskeletal: No gross orthopedic abnormalities. No calf tenderness. Skin: normal turgor Neurologic: moves all extremities Psychiatric: A+Ox3, euthymic affect Results & Data Results & Data ([facility]) Vital Signs (Past 12 Hours) Vital Signs Temp Pulse Resp BP Pulse Ox 12/31/20 20:00 74 16 112/64 93 12/31/20 19:30 80 20 115/66 91 12/31/20 19:15 82 18 118/57 L 91 12/31/20 19:00 83 20 118/78 94 12/31/20 18:45 87 15 12/31/20 18:40 86 16 12/31/20 18:30 99 12/31/20 17:59 36.2 C L 94 H 20 137/79 95 Code Status & VTE Plan VTE Prophylaxis Plan VTE Prophylaxis will be ordered: Yes Supervising Physician Co-Signing Physician Notes I personally saw and evaluated the patient with Owen Cano PA-C and agree with the assessment and plan. 65 yo female with left breast abscess -US images and results reviewed, consistent with abscess -Will plan on I&D of left breast abscess -Consent obtained, risks discussed including bleeding, infection, recurrence, need for further procedure, need for wound care -She will still need to get her follow up mammogram once she is healed as she has a history of left breast CA s/p excision and radiation 12/2019 PG Care Time/CCT Total # of Minutes Spent Total Time Spent with Patient: Total time spent is greater than 50% in coordination of care (as documented) at patient's floor/unit and/or counseling patient: Coding Level of Care Code 41589 Initial Inpt Care Lvl 3 Diagnoses Breast abscess N61.1
[2020-12-31] MEDS ORDERED: PIPERACILL/TAZOBAC CONSULT ACTIVE PRN (22:24)
[2020-12-31] MEDS ORDERED: ACETAMINOPHEN 1,000 MG/100 ML VIAL IV PRN (22:24)
[2020-12-31] MEDS ORDERED: ONDANSETRON INJ 2 MG/ML 2 ML VIAL IV PRN (22:24)
[2020-12-31] MEDS: PIPERACILLIN/TAZOBACTAM 4.5 GM in DEXTROSE 5% 100 ML IV SCH (23:49)
[2021-01-01 00:06] LABS: Appearance Urine Clear (Clear); Bacteria Urine Automated Negative (Negative); Bilirubin Urine Negative (Negative); Blood Urine 3+ (Negative); Color Urine Yellow; Epithelial Cell Urine Auto >30 /lpf (0-5); Glucose Urine UA Negative (Negative); Ketones Urine Trace (Negative); Leukocyte Esterase Urine 1+ (Negative); Nitrite Urine Negative (Negative); Protein Urine 1+ (Negative); Urobilinogen Urine Negative (Negative); pH Urine 5.5 (4.5-7.5)
[2021-01-01] MEDS: SODIUM CHLORIDE 0.9% 1000ML 1,000 ML IV SCH ×2 (02:55→16:52)
--- NOTE | 2021-01-01 03:58 | Pharmacy Report ---
Pharmacy Abx Initial Consult - Date of Service January 01, 2021 - Pharmacy Dosing Scope Date of Consult: 12/31/20 Consultation requested by: Ricco Cano Pharmacy is consulted to initiate VANCOMYCIN/ZOSYN IV dosing therapy, order appropriate labs and adjust drug dose/frequency. - Subjective The patient is a 65 year old F admitted on 12/31/20 20:40. - Objective Height: 5 ft 2 in Weight: 115.9 kg Vital Signs (Past 12hrs): Vital Signs Temp Pulse Pulse Resp BP BP BP 12/31/20 22:28 36.6 C 64 20 114/67 12/31/20 22:06 36.8 C 87 20 126/82 12/31/20 20:00 74 16 112/64 12/31/20 19:30 80 20 115/66 12/31/20 19:15 82 18 118/57 L 12/31/20 19:00 83 20 118/78 12/31/20 18:45 87 15 12/31/20 18:40 86 16 12/31/20 18:30 12/31/20 17:59 36.2 C L 94 H 20 137/79 Pulse Ox 12/31/20 22:28 94 12/31/20 22:06 95 12/31/20 20:00 93 12/31/20 19:30 91 12/31/20 19:15 91 12/31/20 19:00 94 12/31/20 18:45 12/31/20 18:40 12/31/20 18:30 99 12/31/20 17:59 95 Lab Results (24hrs): Laboratory Tests (24 Hours) 12/31/20 12/31/20 12/31/20 18:23 18:23 18:23 WBC 11.45 H Neut # (Auto) 8.98 H Creatinine 1.05 Est Cr Clr Drug Dosing 63.2 Procalcitonin < 0.05 Micro Results: 12/31/20 23:45 Urine Culture - Pending Urine,Clean Catch 12/31/20 18:30 Aerobic Blood Culture - Pending Blood Anaerobic Blood Culture - Pending 12/31/20 18:23 Aerobic Blood Culture - Pending Blood Anaerobic Blood Culture - Pending - Assessment & Plan Assessment 65 year old F admitted with recurrent L breast abscess, I&D planned for 01/01. Ordered Vanc/Zosyn. Previous abscess = MSSA. Plan Vancomycin IV * Estimated PK Parameters: Pedro ~0.057 hr-1, t1/2 ~12 hr * Loading dose: 2750mg (24 mg/kg) * Maintenance dose: 1250mg IV (~11 mg/kg) every 12 hours * Goal trough level for SST : 15 to 20 mcg/mL * Trough level ordered for 01/02/21 @ 0800. Piperacillin/tazobactam * 4.5g bolus administered over 30 minutes, then 4.5g IV extended infusion every 8 hours for CrCl greater than 20 mL/min * Aggressive dosing selected due to BMI 35 or more. Pharmacy will continue to follow and will adjust dose/frequency as necessary. Thank you.
[2021-01-01] MEDS: ANASTROZOLE 1 MG TAB PO SCH (08:34)
[2021-01-01] MEDS: VANCOMYCIN HCL 1,250 MG in SODIUM CHLORIDE 0.9% 250 ML IV SCH ×2 (08:34→21:38)
[2021-01-01] MEDS: CALCIUM CITRATE 950 MG TAB PO SCH (08:34)
[2021-01-01] MEDS: MULTIVITAMIN TAB PO SCH (08:34)
[2021-01-01] MEDS: PIPERACILLIN/TAZOBACTAM 4.5 GM in DEXTROSE 5% 100 ML IV SCH ×2 (08:52→16:52)
[2021-01-01] MEDS ORDERED: NON-FORMULARY MEDICATION (Multivitamin With Minerals [Hair,Skin And Nails] Tablet) PO SCH (09:00)
--- NOTE | 2021-01-01 10:00 | Anesthesiology Consultation ---
Date of Service January 01, 2021 Assessment & Plan Chart Review Chart Review: Acceptable Risk for Surgery Consults Requested none History Surgery Operation Date: 01/01/21 07:00 Proposed Procedures p Incision and Drainage Breast Abscess Left - Logan Holbrook DO Height/Weight Height: 5 ft 2 in Weight: 115.9 kg Allergies Allergy/AdvReac Type Severity Reaction Status Date / Time No Known Allergies Allergy Verified 12/31/20 15:48 Medications Home Medications Medication Instructions Recorded Confirmed Last Taken calcium citrate 315 mg 2 tab PO QAM 01/02/18 12/31/20 01/07/20 calcium-vitamin D3 6.25 mcg (250 unit) tablet (Citracal + Vitamin D Maximum) multivitamin with minerals 1 tab PO DAILY 04/16/20 12/31/20 Unknown (Hair,Skin and Nails) anastrozole 1 mg tablet 1 mg PO DAILY 08/01/20 12/31/20 Unknown amoxicillin 500 mg tablet 2,000 mg PO ONCE #16 tab 09/01/20 12/31/20 Unknown multivitamin 1 tab PO QAM 12/31/20 12/31/20 Unknown Active Medications Generic Name Dose Route Start Last Admin Trade Name Freq PRN Reason Stop Dose Admin Anastrozole 1 mg 01/01/21 09:00 01/01/21 08:34 Anastrozole 1 Mg Tab PO 01/31/21 08:59 1 mg DAILY OLYA Administration Calcium Citrate 1,900 mg 01/01/21 09:00 01/01/21 08:34 Calcium Citrate 950 Mg Tab PO 01/31/21 08:59 1,900 mg QAM OLYA Administration Piperacillin Sod/Tazobactam 120 mls @ 30 mls/hr 01/01/21 00:00 01/01/21 08:52 Sod 4.5 gm/ Dextrose IV 01/08/21 00:00 30 mls/hr Q8H OLYA Administration Protocol Vancomycin HCl 1,250 mg/ 275 mls @ 200 mls/hr 01/01/21 08:00 01/01/21 08:34 Sodium Chloride IV 01/08/21 07:59 200 mls/hr Q12H OLYA Administration Sodium Chloride 1,000 mls @ 75 mls/hr 01/01/21 02:15 01/01/21 02:55 Nss 1000ml IV 01/31/21 02:14 75 mls/hr .[id number] OLYA Administration Multivitamins 1 tab 01/01/21 09:00 01/01/21 08:34 Multivitamin Tab PO 01/31/21 08:59 1 tab QAM OLYA Administration NPO Date Last Intake of Fluids: 12/31/20 Time Last Intake of Fluids: 20:30 Last Intake of Fluids Comment: sips this am with meds of water per report Date Last Intake of Solids: 12/31/20 Time Last Intake of Solids: 20:30 Past Medical History Medical History Abdominal hernia History of hypothyroidism History of positive PPD 2002. Was treated with meds x 9 months Internal hemorrhoids Lichen sclerosus et atrophicus Menopause Morbid obesity Mucinous carcinoma of breast Osteoarthritis PAD (peripheral artery disease) Pulmonary nodules Per chest CT 04/19 Vaginal itching Vulvitis Past Family History Family History Mother , 88yo Obstruction of bowel Cancer Stroke Father , 39yo Industrial accident Brother A-fib Son MVA (motor vehicle accident) Other No family history of adverse response to anesthesia Patient's mother is Past Surgical History Surgical History Difficult airway for intubation noted from a prior surgery in medical record, patient was unaware. Family history of reaction to anesthesia Mother- "slow to wake", PONV H/O wrist surgery Broken left wrist 2007 History of arthroscopy Bilateral knee History of bilateral tubal ligation History of cholecystectomy History of colonoscopy 2014 [facility] History of gastric bypass 2006 History of herniorrhaphy umbilical 2014 History of hysterectomy BSO 1989 History of surgery on arm Broken right upper arm 2011 History of tooth extraction History of total left knee replacement History of total right knee replacement (TKR) S/P lumpectomy, left breast (01/09/20) Left Breast Lumpectomy with Localization, Juanita Learn To Swim Instructor( 01-03-20) vs. Wire, and Left Axillary [place] Lymph Node Biopsy(Left) - Luis Quintero, , FACS 01/09/20 Social History Smoking Status: Never smoker Hx Alcohol Use: No Hx Substance Use: No substance use type: does not use Physical Exam Vital Signs Last Vital Signs Temp 37 C 01/01/21 09:39 Pulse 78 01/01/21 09:39 Resp 20 01/01/21 09:39 BP 141/79 H 01/01/21 09:39 Pulse Ox 93 01/01/21 09:39 Testing Laboratory Results 12/31/20 18:23 12/31/20 18:23 PT 9.8 Seconds (9.0-12.0) 12/31/20 18: INR 1.0 (0.9-1.1) 12/31/20 18: APTT 24.5 Seconds (21.0-31.0) 12/31/20 18:23 Urine Color Yellow 12/31/20 23:45 Urine Appearance Clear (Clear) 12/31/20 23:45 Urine pH 5.5 (4.5-7.5) 12/31/20 23:45 Ur Specific [place] 1.030 (1.000-1.030) 12/31/20 23:45 Urine Protein 1+ (Negative) H 12/31/20 23:45 Urine Glucose (UA) Negative (Negative) 12/31/20 23:45 Urine Ketones Trace (Negative) H 12/31/20 23:45 Urine Nitrite Negative (Negative) 12/31/20 23:45 Ur Leukocyte Esterase 1+ (Negative) H 12/31/20 23:45 Urine WBC (Auto) 10-30 /hpf (0-5) H 12/31/20 23:45 Urine RBC (Auto) 10-30 /hpf (0-4) H 12/31/20 23:45 U Hyaline Cast (Auto) 1-5 /lpf (0-5) 12/31/20 23:45 U Epithel Cells (Auto) >30 /lpf (0-5) H 12/31/20 23:45 Urine Bacteria (Auto) Negative (Negative) 12/31/20 23:45
[2021-01-01] MEDS ORDERED: fentaNYL citrate 100 MCG/2 ML VIAL IV PRN (10:01)
[2021-01-01] MEDS ORDERED: ATROPINE SULFATE 0.1 MG/ML 10ML SYR IV PRN (10:01)
[2021-01-01] MEDS ORDERED: ONDANSETRON INJ 2 MG/ML 2 ML VIAL IV PRN (10:01)
[2021-01-01] MEDS ORDERED: HYDROmorphone INJ 2 MG/ML SYR/VIAL IV PRN (10:01)
[2021-01-01] MEDS ORDERED: ePHEDrine sulfate 50 MG/ML AMP IV PRN (10:01)
--- NOTE | 2021-01-01 10:01 | History & Physical Bridge Note ---
Date of Service January 01, 2021 History & Physical Bridge Note I have examined the patient, reviewed the History & Physical and in the interval since the performance of the History & Physical I have noted the following changes of clinical significance: no changes noted
[2021-01-01] MEDS ORDERED: MIDAZOLAM HCL 1 MG/ML 2ML VIAL ONE (10:07)
[2021-01-01] MEDS ORDERED: fentaNYL citrate 100 MCG/2 ML VIAL ONE (10:07)
[2021-01-01] MEDS ORDERED: BUPIVACAINE 0.5 % 5 MG/1 ML MPF 30ML VIAL ONE (10:24)
[2021-01-01] MEDS ORDERED: DEXAMETHASONE SOD INJ 4 MG/ML VIAL ONE (10:43)
[2021-01-01] MEDS ORDERED: ONDANSETRON INJ 2 MG/ML 2 ML VIAL ONE (10:43)
[2021-01-01] MEDS ORDERED: LIDOCAINE 2% 2 ML VIAL/AMP(20MG/ML) INFIL ONE (10:43)
[2021-01-01] MEDS ORDERED: PROPOFOL IV EMULSION 10 MG/ML 20 ML VIAL IV ONE (10:43)
[2021-01-01] MEDS ORDERED: PHENYLEPHRINE 100MCG/ML 5ML SYR ONE (10:46)
--- NOTE | 2021-01-01 10:51 | Post Operative Brief Note ---
PG Immediate Post Op with CF Date of Surgery January 01, 2021 Pre & Post Diagnosis Operation Date: 01/01/21 07:00 Pre-Op Diagnosis: Left breast abscess Post-Op Diagnosis: Left breast abscess I identified the patient and participated in the time-out.: Yes Procedure Operation Date: 01/01/21 07:00 Actual Procedures p Incision and Drainage Breast Abscess Left(Left) - Logan Holbrook DO Surgeon Logan Holbrook DO Movers None Estimated Blood Loss 5 Findings Consistent with Post-Op Diagnosis Specimens Specimen Description: culture#1 left breast Anesthesia Type General Complications none Disposition Disposition: Recovery Room
--- NOTE | 2021-01-01 10:54 | Operative Report ---
PG Post Operative Report Pre & Post Diagnosis Operation Date: 01/01/21 07:00 Pre-Op Diagnosis: Left breast abscess Post-Op Diagnosis: Left breast abscess I identified the patient and participated in the time-out.: Yes Procedure Operation Date: 01/01/21 07:00 Actual Procedures p Incision and Drainage Breast Abscess Left(Left) - Logan Holbrook DO Surgeon Logan Holbrook DO Drafting Clerk None Estimated Blood Loss 5 Findings Consistent with Post-Op Diagnosis Specimens Left breast abscess fluid for culture Drains None Anesthesia Type General Complications none Disposition Disposition: Recovery Room Indications 65 yo female with left breast abscess Description of Procedure The patient was brought to the OR and placed in the supine position with both arms abducted. At this time she underwent General LMA anesthesia without issue. She was given appropriate pre-operative antibiotics. The LEFT breast was prepped and draped in the usual sterile fashion. A timeout was called. The procedure was verified as Incision and drainage of LEFT breast abscess. Surgical, anesthesia and nursing teams agreed and the procedure was begun. Af ter injection of 0.25% Marcaine with epinephrine, an incision was made directly over the most fluctuant area of abscess using a #11 blade scalpel. Purulent fluid was encountered and sent for culture. Wide drainage was ensured. All loculations were broken up bluntly. The cavity extended deeply posterior but not any significant amount in the medial/lateral direction. At this time the incision was irrigated until clear. Hemostasis was achieved using electrocautery. Hemostasis was complete. The incision was packed with a 1 inch plain packing. Sterile dressing was applied. The patient was awakened from anesthesia and taking to PACU having remained stable throughout the entire case. All needle and sponge counts correct x 2. I attest to the content of the Intraoperative Record and any orders documented therein. Any exceptions are noted below.
--- NOTE | 2021-01-01 11:57 | Anesthesiology Progress Note ---
Date of Service January 01, 2021 Anesthesia Post Procedure Vital Signs Vital Signs: Temp Pulse Pulse Pulse Resp BP BP 01/01/21 11:45 36.8 C 74 18 01/01/21 11:35 73 18 01/01/21 11:25 36.7 C 73 18 01/01/21 11:15 71 16 01/01/21 11:05 70 20 01/01/21 10:58 36.7 C 75 16 01/01/21 09:39 37 C 78 20 01/01/21 07:20 36.8 C 75 16 12/31/20 22:28 36.6 C 64 20 114/67 12/31/20 22:06 36.8 C 87 20 12/31/20 20:00 74 16 112/64 12/31/20 19:30 80 20 115/66 12/31/20 19:15 82 18 118/57 L 12/31/20 19:00 83 20 118/78 12/31/20 18:45 87 15 12/31/20 18:40 86 16 12/31/20 18:30 12/31/20 17:59 36.2 C L 94 H 20 137/79 BP Pulse Ox 01/01/21 11:45 113/75 96 01/01/21 11:35 108/69 95 01/01/21 11:25 107/64 95 01/01/21 11:15 116/65 95 01/01/21 11:05 114/74 100 01/01/21 10:58 107/80 99 01/01/21 09:39 141/79 H 93 01/01/21 07:20 113/75 96 12/31/20 22:28 94 12/31/20 22:06 126/82 95 12/31/20 20:00 93 12/31/20 19:30 91 12/31/20 19:15 91 12/31/20 19:00 94 12/31/20 18:45 12/31/20 18:40 12/31/20 18:30 99 12/31/20 17:59 95 Transfer of Care Handoff Completed per policy Notes Mental Status: alert / awake / arousable and participated in evaluation Patient Amnestic to Procedure: Yes Nausea / Vomiting: adequately controlled Pain: adequately controlled Airway Patency, RR, SpO2: stable & adequate BP & HR: stable & adequate Hydration State: stable & adequate Anesthetic Complications: no major complications apparent
[2021-01-02] MEDS: PIPERACILLIN/TAZOBACTAM 4.5 GM in DEXTROSE 5% 100 ML IV SCH ×3 (00:48→15:35)
[2021-01-02] MEDS: SODIUM CHLORIDE 0.9% 1000ML 1,000 ML IV SCH (02:59)
--- NOTE | 2021-01-02 05:34 | Electrocardiogram Report ---
Test Reason : Blood Pressure : / mmHG Vent. Rate : 085 BPM Atrial Rate : 085 BPM P-R Int : 150 ms QRS Dur : 076 ms QT Int : 386 ms P-R-T Axes : 030 -46 020 degrees QTc Int : 459 ms Normal sinus rhythm Left anterior fascicular block Nonspecific T wave abnormality Abnormal ECG When compared with ECG of 16-APR-2020 14:46, No significant change was found Confirmed by Lonny Augustine ([id number]) on 01/02/2021 5:33:34 AM Referred By: Rodrigo Gonsalves Confirmed By:Lonny Augustine
[2021-01-02] MEDS ORDERED: VANCOMYCIN TROUGH ONE (07:30)
[2021-01-02 07:36] VITALS: TEMP 98.1
[2021-01-02 07:36] LABS: Basophils # (auto) 0.02 K/uL (0-0.2); Basophils % (auto) 0.2 %; Eosinophils # (auto) 0.11 K/uL (0-0.5); Eosinophils % (auto) 1.1 %; Hematocrit (blood only) 33.9 % (37-47); Immature Granulocytes # (auto) 0.06 K/uL (0.00-0.02); Immature Granulocytes % (auto) 0.6 %; Lymphocytes # (auto) 1.78 K/uL (1.2-3.4); Lymphocytes % (auto) 18.6 %; Mean Corpuscular Hemoglobin 30.4 pg (25-34); Mean Corpuscular Hgb Conc 32.4 g/dL (32-36); Mean Corpuscular Volume 93.6 fL (80-100); Mean Platelet Volume 9.9 fL (7.4-10.4); Monocytes % (auto) 5.2 %; Neutrophils % (auto) 74.3 %; Platelet Count 269 K/uL (130-400); RDW Coefficient of Variation 12.9 % (11.5-14.5); RDW Standard Deviation 44.5 fL (36.4-46.3); Red Blood Count 3.62 M/uL (4.2-5.4); White Blood Count 9.57 K/uL (4.8-10.8)
[2021-01-02 07:54] LABS: Creatinine Clr Calc Pharmacy 92.7 ml/min; Est GFR (African American) 101.1 ml/min; Est GFR (Non-African American) 87.3 ml/min
[2021-01-02] MEDS: VANCOMYCIN HCL 1,250 MG in SODIUM CHLORIDE 0.9% 250 ML IV SCH (08:04)
[2021-01-02] MEDS: MULTIVITAMIN TAB PO SCH (08:44)
[2021-01-02] MEDS: CALCIUM CITRATE 950 MG TAB PO SCH (08:44)
[2021-01-02] MEDS: ANASTROZOLE 1 MG TAB PO SCH (08:44)
--- NOTE | 2021-01-02 10:32 | Pharmacy Report ---
Pharmacy Vanc AUC Short Note - Date of Service January 02, 2021 - Assessment & Plan Assessment 65 year old F receiving IV Vancomycin + Zosyn for treatment of left brest abscess, s/p I&D yesterday. Pertinent microbiologic data includes: breast culture growing staph species. UC pending, BC no growth to date. Afebrile, WBC down 11.4 --> 9.5 Day # 3 of antimicrobial therapy. Plan Vancomycin * AUC/EVELYN is the preferred PK/PD target for vancomycin * AUC guided dosing is effective and associated with decreased risk of nephrotoxicity compared to traditional trough targets * Trough level of 15.8 mcg/mL is predicted to achieve target AUC/EVELYN of 400-600 mg/L.hr and may be associated with a 6% risk of nephrotoxicity * Continue dose of 1250 mg IV every 12 hours * Further levels will be ordered based on duration of therapy Zosyn 4.5g IV Q8H for CrCl > 20ml/min and BMI > 35 Pharmacy will continue to follow and will adjust dose/frequency as necessary. Thank you.
--- NOTE | 2021-01-02 12:45 | Surgery Progress Note ---
Date of Service January 02, 2021 Assessment & Plan (1) Left breast abscess: Plan: -Wound without purulence -Leukocytosis resolved -Will set her up with daily packing changes with 1 inch plain gauze -Will send her home on Augmentin BID x 10 days -Will have her follow up with me in 1-2 weeks, office will call her early next week to set up appointment Admission and Anticipated Discharge Date Admission Date: December 31, 2020 Subjective Pt seen and examined. Pain improved and controlled. Afebrile. No acute events overnight. Physical Exam Constitutional: WD/WN, vitals as above Chest (Breasts): Additional Comments: I&D site with less erythema, wound probed and without purulence, induration improved. Results & Data ([facility]) Vital Signs (Past 12 Hours) Vital Signs Temp Pulse Resp BP Pulse Ox 01/02/21 07:35 36.7 C 76 18 145/92 H 95 01/02/21 03:35 36.6 C 83 17 118/69 95 PG Care Time/CCT Total # of Minutes Spent Total Time Spent with Patient: Total time spent is greater than 50% in coordination of care (as documented) at patient's floor/unit and/or counseling patient: Coding Level of Care Code None Diagnoses Left breast abscess N61.1
[2021-01-02 15:32] VITALS: BP 145/86; PULSE 81; O2SAT 97
--- NOTE | 2021-01-05 09:24 | Discharge Summary ---
Date of Service January 05, 2021 Admission HPI Per Admitting Provider This is a 65-year-old female with a prior history of a left breast abscess. She has a complicated wound history concerning her left breast. Patient does have a history of stage Ia left-sided breast cancer for which she underwent a lumpectomy by Dr. Quintero in December 2019. She subsequently underwent radiation therapy which she completed in March 2020. The patient did develop a seroma at her lumpectomy site which eventually progressed to a left breast abscess which underwent an incision and drainage in April 2020. Cultures were reviewed and grew out methicillin sensitive staph aureus. Patient was in the hospital for approximately 1 week receiving intravenous antibiotics in the form of Zosyn, vancomycin, and Unasyn. She was ultimately discharged home on oral Keflex. Patient was ultimately followed in the wound care center as she did have a wound VAC in place. Patient was most recently seen at the wound care center in July [id number] and was ultimately discharged as her wound was noted to be healed. Patient presented to [facility] today as she has noted 1 week of increased soreness, erythema, and induration of the left breast near the the site of her previous wound. Patient noted that the area started draining approximately 2 days ago of foul-smelling purulent material. She has had felt feverish although she did not take her temperature but she did admit to some chills. She denies any nausea or vomiting. She denies any abdominal pain. She denies any cough or shortness of breath or other concerning symptoms. In the emergency department she had labs and imaging which I dependently reviewed. An ultrasound of her left breast showed a complex fluid collection with septations measuring 4.7 x 4.0 x 2.4 cm.In addition the patient had a chest x-ray that showed no evidence of pneumonia. CBC revealed white blood cell count was elevated 11.45. Hemoglobin, hematocrit, and platelet count were all within normal range. Chemistry profile showed her sodium, potassium, and creatinine were all within normal range. A Covid test has been performed and was noted to be pending. An EKG was performed that showed normal sinus rhythm without acute ischemic changes. At the time of my interview the patient was noted to be afebrile. She was in no distress but did have some discomfort with palpation of her left breast. Principal Diagnosis Left breast abscess Discharge Exam Constitutional WD/WN, vitals as above Chest (Breasts) Additional Comments: Left breast wound clean, no erythema, packing changed Discharge Data Allergies Allergy/AdvReac Type Severity Reaction Status Date / Time No Known Allergies Allergy Verified 12/31/20 15:48 Consultations 12/31/20 20:30 ED Decision to Admit Stat Procedures Performed Operation Date: 01/01/21 07:00 Actual Procedures p Incision and Drainage Breast Abscess Left(Left) - Logan Holbrook DO Ordered Studies 12/31/20 18:20 breast complete Stat Hospital Course (1) Left breast abscess: 65 y/o female presented to the ER with left breast pain and drainage. White count was 11,000 and ultrasound showed 4 cm fluid collection. She was started on IV antibiotics and admitted to the surgical service overnight. In the morning she was taken to the operating room for I&D and returned to the floor for continued IV therapy. The next day wound packing was changed and arrangements were made for daily packing changes by home health. She was then stable for discharge home on oral antibiotics. Total Time Total Time Spent Total Time Spent (In Minutes): 15 Discharge Plan Discharge Items Patient Disposition: Home - Home Health Services Reason For Visit: BREAST ABSCESS Discharge Diagnosis: Drainage of abscess Activity: As commented below Bathing: Keep incision dry Driving/Machine Use: Resume 1 day after discharge Non-emergency contact: Surgeon Call non-emergency contact if: you have any medication questions, your pain is not controlled, you have a fever, your temperature is above 101.5, your wound has increased redness and your wound has increased drainage Follow-up/Referrals: Rodrigo Gonsalves MD [Primary Care Provider] - 01/09/21 3:00 pm (You will be seeing Saba Rodriguez PA-C) Logan Holbrook DO [Physician] - (In 7-10 days, please call if you do not hear from the office) Diet: Regular Addtl Attending Provider Instructions: You can take Tylenol as directed on the bottle or ibuprofen 400-600 mg every 6 hours as needed for pain between oxycodone Daily packing changes 1" gauze Pending Studies at Discharge: No Stand-Alone Forms: [facility] IVDesk, Opioid Pain Management, Smoking Cessation Medications and DC Order Prescriptions: New oxycodone 5 mg tablet 5 - 10 mg PO Q4H Qty: 15 RF: 0 amoxicillin-pot clavulanate [Augmentin] 875-125 mg tablet 1 tab PO BID Qty: 20 RF: 0 Continued anastrozole 1 mg tablet 1 mg PO DAILY RF: 0 amoxicillin 500 mg tablet 2,000 mg PO ONCE Qty: 16 RF: 3 calcium citrate-vitamin D3 [Citracal + D Maximum] 315-250 mg-unit Tablet 2 tab PO QAM RF: 0 multivitamin with minerals [Hair,Skin and Nails] Tablet 1 tab PO DAILY RF: 0 multivitamin Tablet 1 tab PO QAM RF: 0 Discharge Orders: Discharge Order (Routine); Ordered 01/02/21 Ordered By: Joni Quintero/Other Patient Handouts: DVT Post Op Prevention Admission Data Admit Date/Time: 12/31/20 20:40 Attending Provider: Logan Holbrook Admit Provider: Logan Holbrook Primary Care Provider: Rodrigo Gonsalves Other Providers: Logan Holbrook ; [facility] Other Interventions: Discharge Summary Assessment (RN) Last Done: 01/02/21 12:53 Coding Level of Care Code D/C DAY MANAGEMENT <30 MINS Diagnoses Left breast abscess N61.1
== END 2021-01-02 19:42 | disposition home health service (06) | DRG 584 ==
LOC: ED 17:44 → 3N 20:40